=== PATIENT | female | born 2000 | race Caucasian/White ===

== ENCOUNTER 2023-03-12 16:30 | Emergency (ER) | payer OTHER, SELFPAY ==
--- NOTE | 2023-03-12 17:09 | ED_ITS ---
HPI - General Adult General Chief complaint: Vaginal Bleeding Stated complaint: vaginal bleeding Time Seen by Provider: 03/12/23 18:49 History of Present Illness HPI narrative: The patient is a 22-year-old female who has a history of hydrocephalus and has a PROCESS DEVELOPMENT ENGINEER shunt. She is on control pills. She has had very little sexual experience. She has had 2 previous attempts at intercourse both of which were uncomfortable some bleeding. Her last attempt was about 6 or 7 months ago. She and her boyfriend have use condoms on each of these attempts as well. This morning at around 09:30 she and her boyfriend were attempting intercourse again. During the intercourse which the patient found uncomfortable there was significant bleeding that interrupted the intercourse. They stopped having intercourse. Despite this the patient continued to have significant vaginal bleeding and passed large clots and ultimately her mother brought her to the hospital. Related Data Allergies Allergy/AdvReac Type Severity Reaction Status Date / Time doxycycline Allergy Rash Verified 03/12/23 17:09 latex Allergy Unknown Verified 03/12/23 17:09 Review of Systems 2 Review of Systems: Yes all other systems are reviewed and are negative [facility] Social History Social History Advance Directives: No Advance Directives Information Provided: No Physical Exam ED Vital Signs: Vital Signs - 24 hr 03/12/23 17:10 03/12/23 19:12 Temperature 96.8 F 97.6 F Pulse Rate 88 87 Respiratory Rate 18 19 Blood Pressure 156/95 H 108/63 Pulse Oximetry 99 100 Oxygen Delivery Method Room Air Room Air BMI result Body Mass Index 37.8 Const Other: The patient is awake and alert. She looks pale. HENMT Other: Face is symmetrical. Mucous membranes moist. Eyes Other: Pupils are round equal, conjunctivae are clear, extraocular movements intact Resp Effort & Inspection: normal respiratory effort Auscultation: clear to auscultation bilaterally Cardio Rate: regular rate Rhythm: regular rhythm Heart sounds: S1 normal heart sound present and S2 normal heart sound present GI Other: Soft and nontender Other: Speculum exam revealed small amount of blood in the vaginal vault but no ongoing bleeding. No blood emerging from the cervix. No lesions or signs of injury. Bimanual exam was unremarkable. Skin Other: Skin was pale and dry Neuro Other: The patient is awake and alert pleasant and cooperative. Mental status is normal. Grossly neurologically intact. Extrem Other: No peripheral edema. Course Course Course Narrative: RME:?22 yo female here w/ vaginal bleeding after having sexual intercourse this morning. +blood clots size of tennis ball. has gone through 7 pads since this morning. bleeding onto her pants and has had to change her pants 4 times. +low abdominal cramping, light headed. Just recently became sexually active. reports three episodes of sexual intercourse with vaginal bleeding each time. this has been the heaviest. LMP 03/01/23. typically has heavy bleeding during her menses. has never seen a lawyer real estate. on OCP. plan UA, u preg, basic labs Full HPI, ROS and PE to be performed by the primary ED provider. Medications Administered Discontinued Medications Generic Name Dose Route Start Last Admin Trade Name Deep PRN Reason Stop Dose Admin Tranexamic Acid 1,000 mg/ 260 mls @ 32.5 mls/hr 03/12/23 19:01 03/12/23 19:28 Sodium Chloride IV 03/13/23 03:00 32.5 mls/hr .Q8H ONE Administration Ketorolac Tromethamine 15 mg 03/12/23 19:01 03/12/23 19:26 Ketorolac Tromethamine 15 Mg/Ml Vial IVPUSH 03/12/23 19:02 15 mg ONCE ONE Administration Medical Decision Making Medical Decision Making [facility] Narrative: The patient is a 22-year-old with minimal previous sexual experience. She describes having only to previous episodes of attempting sexual intercourse both of which were associated with bleeding and discomfort. Asked attempted sexual intercourse was 6 or 7 months ago. Today the patient developed significant bleeding while having intercourse so that the intercourse was stopped because of the bleeding. She then continued to have bleeding and passage of large clots and was brought to the hospital by her mother. The patient was given a dose of ketorolac and tranexamic acid IV. The patient was observed for a couple of hours after ketorolac prior to the pelvic exam. Her pain was better. At the time that I performed the pelvic exam there was no evidence of significant ongoing bleeding and I thought she was safe for discharge. She should follow up with Gynecology. Lab Data 03/12/23 18:18 03/12/23 18:18 Labs: Lab Results 03/12/23 03/12/23 Range/Units 18:18 18:55 WBC 14.5 H (4.8-10.8) X10*3/uL RBC 4.45 (4.20-5.50) X10*6/uL Hgb 13.6 (12.0-16.0) g/dl Hct 38.4 (37.0-47.0) % MCV 86.3 (80.0-98.0) fL MCH 30.6 (27.0-33.0) pg MCHC 35.4 H (31.0-35.0) g/dl RDW 11.4 (11.0-16.0) % Plt Count 315 (160-400) X10*3/uL MPV 8.6 L (9.4-12.3) fL Immature Gran % (Auto) 0.3 (0.0-0.4) % Neut % (Auto) 64.5 (45-73) % Lymph % (Auto) 27.0 (20-40) % [place] % (Auto) 6.1 (2-11) % Eos % (Auto) 1.6 (0-4) % Baso % (Auto) 0.5 (0-2) % Lymph # (Auto) 3.9 (1.2-4.9) X10*3/uL [place] # (Auto) 0.9 (0.1-1.2) X10*3/uL Eos # (Auto) 0.2 (0.0-0.4) X10*3/uL Baso # (Auto) 0.1 (0.0-0.2) X10*3/uL Abs Immat Gran (auto) 0.05 H (0.00-0.03) X10*3/uL Absolute Neuts (auto) 9.4 H (2.0-8.3) x10*3/uL Absolute Nucleated RBC 0.000 (0.0-0.012) X10*3/uL Nucleated RBC % (auto) 0.0 (0.0-0.2) /100WBC Sodium 142 (135-145) mmol/L Potassium 3.6 (3.3-5.1) mmol/L Chloride 107 (96-108) mmol/L Carbon Dioxide 25 (22-29) mmol/L Anion Gap 14 (12-20) BUN 11 (9-16) mg/dL Creatinine 0.69 (0.5-1.4) mg/dL Estim Creat Clear Calc 114.8 Estimated GFR > 60 Random Glucose 100 (60-115) mg/dL Calcium 9.3 (8.4-10.2) mg/dL Magnesium 1.9 (1.6-2.6) mg/dL Beta HCG, Quant < 2 mIU/mL Urine Color RED Urine Appearance Cloudy Urine pH 5.0 (5.0-9.0) Ur Specific [place] 1.010 (1.005-1.025) Urine Protein 100 (2+) H (Neg-Trace) mg/dL Urine Glucose (UA) Negative (Negative) mg/dL Urine Ketones Trace (Negative) mg/dL Urine Blood Large (3+) H (Negative) Urine Nitrite Positive H (Negative) Ur Leukocyte Esterase Trace H (Negative) Urine RBC >20 H (0-2) /HPF Urine WBC 21-50 H (0-5) /HPF Ur Squamous Epith Cells 0-2 (0-2) /HPF Urine Bacteria None Seen (None Seen) Hyaline Casts 0-2 (0-2) /LPF Discharge Plan Discharge Clinical Impression: Vaginal bleeding Patient Disposition: Home, Self-Care Additional Instructions: My hope at this point is that you will not have any significant ongoing bleeding. I would recommend that you see a lawyer real estate before resuming attempts at intercourse. I have given you the contact information for [facility] lawyer real estate, Dr. Melendez. You may of course follow-up with the [facility] gynecology group you are planning on seeing. Rest and take it easy tonight. Return to the emergency room if significantly worse. Referrals: Mandeep Don MD [Primary Care Provider] - (postcoital vaginal bleeding) Florin Melendez MD [Physician] - (postcoital vaginal bleeding)
[2023-03-12 17:10] VITALS: BP 156/95; PULSE 88; RESP 18; TEMP 36; O2SAT 99; BMI 37.8
[2023-03-12 18:25] LABS: MANUAL DIFF FLAG NO
[2023-03-12 18:26] LABS: Basophils Absolute Auto 0.1 X10*3/uL (0.0-0.2); Basophils Percent Auto 0.5 % (0-2); Eosinophils Absolute Auto 0.2 X10*3/uL (0.0-0.4); Eosinophils Percent Auto 1.6 % (0-4); Hematocrit 38.4 % (37.0-47.0); Hemoglobin 13.6 g/dl (12.0-16.0); Imm Gran Abs Auto 0.05 X10*3/uL (0.00-0.03); Imm Gran Pct Auto 0.3 % (0.0-0.4); Lymphocytes Absolute Auto 3.9 X10*3/uL (1.2-4.9); Mean Corpuscular HGB Conc 35.4 g/dl (31.0-35.0); Mean Corpuscular Hemoglobin 30.6 pg (27.0-33.0); Mean Corpuscular Volume 86.3 fL (80.0-98.0); Mean Platelet Volume 8.6 fL (9.4-12.3); Monocytes Absolute Auto 0.9 X10*3/uL (0.1-1.2); Monocytes Percent Auto 6.1 % (2-11); Neutrophils Absolute Auto 9.4 x10*3/uL (2.0-8.3); Neutrophils Percent Auto 64.5 % (45-73); Platelet Count 315 X10*3/uL (160-400); Red Blood Count 4.45 X10*6/uL (4.20-5.50); Red Cell Distribution Width 11.4 % (11.0-16.0); White Blood Count 14.5 X10*3/uL (4.8-10.8)
[2023-03-12 18:46] LABS: Anion Gap 14 (12-20); Blood Urea Nitrogen 11 mg/dL (9-16); Calcium 9.3 mg/dL (8.4-10.2); Carbon Dioxide 25 mmol/L (22-29); Chloride 107 mmol/L (96-108); Creatinine Clr Calc Pharmacy 114.8; Estimated Glomerular Filt Rate > 60; Glucose Random 100 mg/dL (60-115); Magnesium 1.9 mg/dL (1.6-2.6); Potassium 3.6 mmol/L (3.3-5.1); Sodium 142 mmol/L (135-145)
[2023-03-12 19:04] LABS: Appearance Urine Cloudy; Color Urine RED; Glucose Urine UA Negative (Negative); Leukocyte Esterase Urine Trace (Negative); Nitrite Urine Positive (Negative); UMIC TRIGGER UACC YES; Urine Blood Large (3+) (Negative); Urine Ketones Trace mg/dL (Negative); Urine Protein 100 (2+) mg/dL (Neg-Trace)
[2023-03-12 19:12] VITALS: BP 108/63; PULSE 87; RESP 19; TEMP 36.4; O2SAT 100
[2023-03-12 19:13] LABS: Bacteria Urine None Seen (None Seen); Hyaline Casts Urine 0-2 /LPF (0-2); RBC Urine >20 /HPF (0-2); Squamous Epithelial Cell Urine 0-2 /HPF (0-2); UACC Culture Trigger YES; WBC Urine 21-50 /HPF (0-5)
[2023-03-12 19:15] LABS: HCG Quantitative < 2 mIU/mL
[2023-03-12] MEDS: Ketorolac Tromethamine 15 MG/ML VIAL IVPUSH (19:26)
[2023-03-12] MEDS: Tranexamic Acid 1,000 MG in 0.9 % Sodium Chloride 250 ML 32.5 MG IV (19:28)
== END 2023-03-12 23:31 | disposition home or self-care (01) ==
PROVIDERS: Physician Assistant Medical; Emergency Provider Emergency Medicine; PCP Internal Medicine
DX: N93.9 Abnormal uterine and vaginal bleeding, unspecified (principal); R10.2 Pelvic and perineal pain; Z79.899 Other long term (current) drug therapy
CPT/HCPCS: 36415; 80048; 81001; 81003; 83735; 84702; 85025; 87086; 96374; 99284; J1885

== ENCOUNTER 2025-02-10 14:51 | Outpatient (AMB) | payer OTHER, SELFPAY ==
--- OUTSIDE RECORDS SUMMARY | 2023-08-13 05:15 | XMS_ITS ---
Author Organization [facility] Address [address] [place] [address] Care Team Providers Care Charge Poster Name Role Phone Florencia BRIONES, Mandeep Primary Care Provider UnavailJolie Connell [phone] Encounters Encounter Location Date Provider Diagnosis [facility] [address] [place] [address] 08/13/2023 Jolie Downing Plan Of Treatment No Information Progress Notes * Maged LALB:2000 (24 yo F)Acc No.[id number]:08/13/2023 PROGRESS NOTE Patient: Ayde MONTOYA Provider: Yanira Downing DPM :2000 A ge:23 Y S ex:Female Date:08/13/2023 Address:[address] [place] [address] [facility] Pcp:Mandeep Don MD Subjective: * Chief Complaints: [...] 08/13/2023 Generated for Printi ng/Faxing/eTransmitting on: 1 04/13/2024 07:10 PM EST
--- OUTSIDE RECORDS SUMMARY | 2023-08-20 05:45 | XMS_ITS ---
Author Organization [facility] Address [address] [place] [address] Care Team Providers Care Tab Machine Operator Name Role Phone Florencia BRIONES, Mandeep Primary Care Provider UnavailJolie Connell [phone] Encounters Encounter Location Date Provider Diagnosis [facility] [address] [place] [address] 08/20/2023 Jolie Downing Plan Of Treatment No Information Progress Notes * Maged LALB:2000 (24 yo F)Acc No.[id number]:08/20/2023 PROGRESS NOTES Patient: Ayde MONTOYA Provider: Yanira Downing DPM :2000 A ge:23 Y S ex:Female Date:08/20/2023 Address:[address] [place] [address] [facility] Pcp:Mandeep Don MD Subjective: * Chief Complaints: [...] 08/20/2023 Generated for Printi ng/Faxing/eTransmitting on: 1 04/13/2024 07:10 PM EST
--- OUTSIDE RECORDS SUMMARY | 2023-09-06 08:45 | XMS_ITS ---
Author Organization [facility] Address [address] [place] [address] Care Team Providers Care Nurse Practical Name Role Phone Florencia BRIONES, Mandeep Primary Care Provider UnavailJolie Connell [phone] Encounters Encounter Location Date Provider Diagnosis [facility] [address] [place] [address] 09/06/2023 Jolie Downing Plan Of Treatment No Information Progress Notes * Maged LALB:2000 (24 yo F)Acc No.[id number]:09/06/2023 PROGRESS NOTES Patient: Ayde MONTOYA Provider: Yanira Downing DPM :2000 A ge:23 Y S ex:Female Date:09/06/2023 Address:[address] [place] [address] ro[address] [id number] Pcp:Mandeep Don MD Subjective: * Chief Complaints: [...] 09/06/2023 Generated for Printi ng/Faxing/eTransmitting on: 1 04/13/2024 07:11 PM EST
--- OUTSIDE RECORDS SUMMARY | 2024-06-17 04:45 | XMS_ITS ---
Author Organization [facility] Address [address] [place] [address] Care Team Providers Care Transfer Specialist Name Role Phone Florencia BRIONES, Mandeep Primary Care Provider Unavailabl e Black, Jolie Unavailable [phone] Lily Keith Unavailable [phone] Encounters Encounter Location Date Provider Diagnosis [address] [address] 06/17/2024 Lily Keith Plan Of Treatment No Information Progress Notes * Sylvia LALAzamB:2000 (24 yo F)Acc No.[id number]:06/17/2024 Progress Notes Patient: Ayde MONTOYA Provider: Arielle Keith DPM :2000 A ge:23 Y S ex:Female Date:06/17/2024 Address:[address] [place], [place] [id number] Pcp:Mandeep Don MD Subjective: * Chief Complaints: [...] 0 06/17/2024 Generated for Anais thurston/Brandy/eTransmitting on: 04/13/2024 07:11 PM EST
--- OUTSIDE RECORDS SUMMARY | 2024-07-29 09:00 | XMS_ITS ---
Author Organization [facility] Address [address] [place] [address] Care Team Providers Care Veterinarian Epidemiologist Name Role Phone Florencia BRIONES, Mandeep Primary Care Provider Unavailabl e Black, Jolie Unavailable [phone] Lily Keith Unavailable [phone] Encounters Encounter Location Date Provider Diagnosis [address] [address] 07/29/2024 Lily Keith Plan Of Treatment No Information Progress Notes * Sylvia LALAzamB:2000 (24 yo F)Acc No.[id number]:07/29/2024 Progress Note Patient: Ayde MONTOYA Provider: Arielle Keith DPM :2000 A ge:24 Y S ex:Female Date:07/29/2024 Address:[address] [place], [place] [id number] Pcp:Mandeep Don MD Subjective: * Chief Complaints: [...] DPM Date: 0 07/29/2024 Generated for Anais thurston/Brandy/eTransmitting on: 04/13/2024 07:11 PM EST
[2025-02-10 15:16] VITALS: BP 118/72; PULSE 103; O2SAT 99; BMI 32.5
--- NOTE | 2025-02-10 15:16 | A.OFFVIS_ITS ---
Vital Signs 02/10/25 15:16 Height 4 ft 10 in Weight 155 lb 8 oz BMI 32.5 BP 118/72 Blood Pressure Location Rt brachial Position Sitting Pulse 103 H Pulse Source Pulse Oximeter Pulse Oximetry (%) 99 Oxygen Delivery Method Room Air Intake Visit Reasons: Asthma Allergies doxycycline Allergy (Verified 02/10/25 15:18) Rash latex Allergy (Verified 02/10/25 15:18) Unknown HPI Comments Details: Ayde is a pleasant 24 year old female presenting for a pulmonology consultation to discuss her asthma diagnosis and management. Today she is accompanied by her mother. She has an unclear history of asthma, having been told she had it as a child and used an albuterol pump, but felt she grew out of it. More recently, she was prescribed Breo after an episode of bronchitis. Since 2022, she has experienced chest tightness and a dry cough, which worsen in the spring, fall, and with exposure to cold air. She reports being asymptomatic during the summer, at which time she trialed stopping her medication. Her current medications include the highest dose of Breo daily, Airsupra used approximately 5 times over the last few months, and an albuterol pump which she avoids due to side effects of feeling jittery with a racing heart. A pulmonary function test from March 2023 revealed mild obstruction, consistent with asthma, but no significant response to albuterol. Her lung volumes and diffusion capacity were normal. A chest CT from 2022 was normal. The patient has a history of seasonal allergies and takes Xyzal daily. She had allergy testing as a child which was positive for ragweed pollen and has a known allergy to latex, which seems to be triggered by inhalation rather than skin contact. She is a never-smoker with no secondhand smoke exposure. Her sister also has asthma. Past medical history is significant for hydrocephalus s/p JACK SPINNER shunt, for which she follows with [facility] and is in the process of transitioning to an adult provider. First name: Ayde Pulmonology History - History of asthma as a child with recurrence of symptoms following an episode of bronchitis. - Symptoms include chest tightness and a dry cough since 2022, exacerbated by cold air and seasonal changes in spring and fall. - Pulmonary function test in March 2023 showed mild obstruction. - History of recurrent respiratory infections and bronchitis while growing up. - Current medications include Breo Ellipta, Airsupra, and an albuterol inhaler. [facility] Social History (Updated 02/10/25 @ 15:18 by Adriana Burton [facility]) Patient Tobacco Use Status: Never used Tobacco Review of Systems Narrative Const Denies chills, Denies excessive sweating, Denies fever(s), Denies headache(s) and Denies night sweats Eyes Denies dry eyes, Denies irritation and Denies itchy eyes ENT Reports Normal hearing present, Denies headache(s), Denies nasal congestion, Denies nasal discharge, Denies post nasal drip and Denies sore throat Card Denies chest pain, Denies chest pain at rest, Denies chest pain with activity, Denies claudication, Denies leg edema, Denies dyspnea, Denies dyspnea on exertion, Denies orthopnea and Denies paroxysmal nocturnal dyspnea Resp Denies chest congestion, Denies cough, Denies excessive phlegm production, Denies pain on inspiration, Denies pain with cough, Denies dyspnea, Denies dyspnea on exertion, Denies stridor and Denies wheezing Musc Denies myalgias Neuro Reports Normal hearing present and Denies headache(s) Endo Denies excessive sweating Aquiles/Lymph Denies lymphadenopathy Aller/Immun Denies itchy eyes, Denies seasonal rhinorrhea and Denies wheezing Physical Exam Exam Exam: Vital Signs: Last Vital Signs Pulse 103 H 02/10/25 15:16 BP 118/72 02/10/25 15:16 Pulse Ox 99 02/10/25 15:16 Oxygen Delivery Method Room Air 02/10/25 15:16 BMI result Body Mass Index 32.5 Const General: cooperative, healthy appearing, comfortable, no acute distress, well developed and alert Nutritional Appearance: obese Orientation/consciousness: patient oriented x3 Limitations: no limitations HEENT Head: Yes normal to inspection, Yes normocephalic and Yes atraumatic Ears: hearing grossly normal bilaterally and external ears normal Eyes General: appearance normal, both eyes and all related structures Eyelids: Yes eyelids normal Sclerae: sclerae normal EOM: EOMs intact bilaterally Neck Neck: Yes normal visual inspection and Yes no lymphadenopathy Lymphatic: no lymphadenopathy noted Chest Chest palpation & inspection: normal inspection of the chest Resp Effort & Inspection: normal respiratory effort, able to speak in complete sentences, no audible wheezes, no cough, no stridor, not tachypneic, no tripod positioning and no use of accessory muscles Auscultation: clear to auscultation bilaterally Cardio Jugular venous distension: no JVD Rate: regular rate Rhythm: regular rhythm Skin Other: warm, dry General skin exam: no rashes or lesions noted Neuro General: patient oriented x3 Cranial nerves: Yes Normal hearing present Cognition (Neuro): normal cognition Gait exam (Neuro): Normal gait present Extrem General: Yes normal to inspection, Yes capillary refill normal, Yes no clubbing, cyanosis or edema and Yes no pedal edema Psych Appearance: grossly normal and well kempt Speech and movement: Normal speech and movement present and Clear speech present Affect: normal affect Attitude: cooperative Thought process: Normal thought process present Thought content: Normal thought content present Insight: Good insight present (Psych) Judgement: Good judgement present (Psych) Assessment & Plan Assessment & Plan (1) Asthma: Code(s): J45.909 - Unspecified asthma, uncomplicated Category: Medical (2) Environmental allergies: Code(s): Z91.09 - Other allergy status, other than to drugs and biological substances Category: Medical Plan Reviewed the patient's March 2023 pulmonary function test with her, explaining that the finding of mild obstruction confirms the diagnosis of asthma. Educated her that asthma is an inflammatory condition and that being on a daily controller inhaler like Breo helps reduce this inflammation, thereby preventing infections and flare-ups. We discussed that her symptoms appear to be well-controlled on her current regimen, as evidenced by her not having bronchiti c symptoms since starting the medication. Recommended she continue the high-dose Breo, especially through the current cold season and upcoming spring allergy season, to maintain control. We discussed the possibility of decreasing the dose during the summer, when she is typically asymptomatic. Ordered a baseline allergy blood work panel to better identify her environmental triggers. The patient expressed understanding and was agreeable with this plan. We will follow up in 8-10 weeks to review blood work results and her clinical status. All questions were answered and patient is in agreement of plan. Patient Instructions - Continue taking your Breo inhaler every day. - We may consider reducing your Breo dose in the summertime when your symptoms typically improve. - Please go to a lab to have blood work done to test for allergies. The orders have been sent electronically, so you do not need to carry any paperwork. - Call our office if you experience a cough that will not go away, cough up yellow or green mucus, have wheezing that does not improve with your rescue inhaler, or experience persistent shortness of breath. - Schedule a follow-up appointment in about 8 to 10 weeks. Patient was informed and verbally consented to the use of an ambient scribe for clinic note documentation during this visit. Orders: Orders Immunoglobulin E Today Z91.09 - Other allergy status, other than to drugs and biological substances Resp Allergy Profile Region I Today Z91.09 - Other allergy status, other than to drugs and biological substances Complete Blood Count Auto Diff Today Z91.09 - Other allergy status, other than to drugs and biological substances Coding Level of Care Code New Pt Level 4 (09287) Diagnoses Asthma J45.909 Environmental allergies Z91.09
--- OUTSIDE RECORDS SUMMARY | 2025-02-10 19:10 | XMS_ITS | Patient Health Record ---
Author Organization [facility] Address [address] [place] [address] Care Team Providers Care Traffic Survey Technician Name Role Phone Mandeep Don MD Primary Care Provider Unavailabl e Black, Jolie Unavailable [phone] Lily Keith Unavailable [phone] Allergies Allergen (clinical drug ingredient) Drug/Non Drug Allergy documented on EMR Reaction Allergy Type Onset Date Status Latex Latex Unknown Allergy Active Reason For Referral No Information Medications Medication SIG (Take, Route, Frequency, Duration) Notes Start Date End Date Status Emgality 120 MG/ML as directed Subcutaneous Active tiZANidine HCl 4 MG as directed Orally PRN Active Nurtec 75 MG 1 tablet on the tongue and allow to dissolve Orally Active Sertraline HCl 150 MG 1 tablet Orally Once a day Not-Taking Airsupra Active Topiramate 25 MG as directed Orally 25 am 50 pm 2 tab a day Not-Taking Sertraline HCl 50 MG as directed Orally Once a day Not-Taking Zepbound 2.5 MG/0.5ML 0.5 mL Subcutaneous Active Sertraline HCl 175MG Not-T aking Naproxen 500 MG 1 tablet with food or milk as needed Orally every 12 hrs PRN Active Zofran 8 Mg Active traMADol HCl 50 MG (Schedule IV Drug) (Prior Auth#:[id number]) Oral; Duration: 7 PRN Active Breo Ellipta Active 03/17 Control Activ e Citalopram Hydrobromide 20 MG 1 tablet Orally Once a day Active Linzess Active Immunizations Vaccine Route Administration Date Status Comme nts COVID-19 Moderna Vaccine Unknown 01/24/2021 Administered First Dose: 06/21/2020 Second Dose: 07/19/20 Social History Tobacco Use: Social History Observation Description Date Details (start date - stop date) Never Smoker NA - NA Tobacco use other than smoking: Question Answer Notes Are you an other tobacco user? No Tobacco Control (Standard) Question Answer Notes Tobacco use: Nonsmoker Additional Findings: Tobacco non-user Current no nsmoker AUDIT-C (Standard) Question Answer Notes Did you have a drink contain ing alcohol in the past year? Yes How often did you have a dri nk containing alcohol in the past year? Monthly or less (1 point) How many drinks did you have on a typical day when you were drinking in the past year? 1 or 2 drinks (0 point) How often did you have six o r more drinks on one occasion in the past year? 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) Plantar fasciitis, bilateral (M72.2) Active confirmed Vital Signs Blood pressure diastolic 98 mm Hg 05/15/2024 Height 4ft 10in in 05/15/2024 Blood pressure systolic 136 mm Hg 05/15/2024 Weight 153 lbs 05/15/2024 BMI 31.97 kg/m2 05/15/2024 Encounters Encounter Location Date Provider Diagnosis [facility] [address] 05/15/2024 Lily Perica Pain in right foot M79.671 ; Plantar fasciitis, bilateral M72.2 ; Other myositis of right foot M60.871 ; Bursitis of right foot M77.51 ; Pain in left foot M79.672 ; Other myositis of left foot M60.872 and Bursitis of left foot M77.52 [facility] [address] [address] [place] [address] 05/12/2024 Jolie Downing Assessments Encounter Date Diagnosis (ICD Code) Assessment Notes Treatment Notes Treatment Clinical Notes Section Notes 05/15/2024 Pain in right foot (ICD-10 - M79.671) 05/15/2024 Other myositis of right foot (ICD-10 - M60.871) 05/15/2024 Plantar fasciitis, bilateral (ICD-10 - M72.2) Patient Educated with: HEEL CORD STRETCHES.pdf (HEEL CORD STRETCHES.pdf) Patient Educated with: RICE THERAPY.pdf (RICE THERAPY.pdf) 05/15/2024 Bursitis of right foot (ICD-10 - M77.51) 05/15/2024 Pain in left foot (ICD-10 - M79.672) 05/15/2024 Other myositis of left foot (ICD-10 - M60.872) 05/15/2024 Bursitis of left foot (ICD-10 - M77.52) 05/15/2024 Other Patient Educated with: RICE THERAPY.pdf (RICE THERAPY.pdf) Patient Educated with: INJECTIONTHERA PY.pdf (INJECTIONTHER APY.pdf) Plan Of Treatment Pending Test Test Name Order Date X ray : Foot, left 3V 05/15/2024 X ray : Foot, right 3V 05/15/2024 26591-Jqos Destruction, 1-14 11/07/2021 26789-Emwl Destruction, -14 01/23/2022 13161-Wmuc Destruction, -14 04/01/2020 09024-Qrew Destruction, -04/22/2020 95065-Cqqd Destruction, -14 05/27/2020 17402-Pisn Destruction, -14 06/21/2020 84610-Pyrw Destruction, -03/21/2021 18728-Sohv Destruction, -04/28/2021 86072-Bhmu Destruction, -05/30/2021 08720-Gzpr Destruction, -10/10/2021 21129,S0864-QSZ TENDON SHEATH/LIGAMENT 0 10/25/202183042,W8149-RPF TENDON SHEATH/LIGAMENT 0 11/07/202102415,C3827-XLX TENDON SHEATH/LIGAMENT 0 04/10/202261800,Z2468-TQO TENDON SHEATH/LIGAMENT 0 04/18/2022 Insurance Providers Payer Name Payer Address Payer Phone Subscriber Number Group Number Insured Name Patient Relationship to Insured Coverage Start Date Coverage End Date [address] [facility] [place], [place] [id number] Ayde Broussard Self - patient is the insured Medical (General) History Medical History History ICD Code Anxiety asthma Depression Epilepsy Headaches Warts Chicken pox Joint implants/screws hydrocephalus Surgical History Surgery Date(Month/Year) shunt revision tubes hernia tonsillectomy adnoidectomy subdural 3rd ventriculostomy Hospitalization History Reason Date(Month/Year) Pain Management- PRN 2022
--- OUTSIDE RECORDS SUMMARY | 2025-02-10 19:10 | XMS_ITS | Data Portability ---
Author Organization [facility], [address] Address [address] [place] [address] Care Team Providers Care Mammal Control Agent Name Role Phone ROSALVA DE OLIVEIRA Primary Care Provider Assessment No assessment recorded. Plan of Treatment Reminders Order Date Submit Date Provider Last Modified By Organization Details Last Modified Time Details Appointments None recorded. Lab rapid flu (A+B) 2022 023 [email or web address] _[facility], [address] [facility] [address], [place], [address], 17:48:59 Referral None recorded. Procedures None recorded. Surgeries None recorded. Imaging XR, chest, 2 view 2022 023 [facility], [address] [place] [address], [address], 19:12:14 Medication Orders albuterol sulfate 2.5 mg/3 mL (0.083 %) solution for nebulizatio n 2022 023 nruszala Not available 17:51:26 ipratropium bromide 0.02 % solution for inhalation 2022 023 nruszala Not available 17:52:13 azithromyci n 250 mg tablet 2022 023 [facility]armacy #[id number], [address] [facility] [place], [address], 3 19:00:28 prednisone 20 mg tablet 2022 023 [facility]acy #[id number], [address] [facility] [place], [address], 19:00:28 Patient TargetsNo targets recorded. Patient Instructions Encounter Date Encounter Id Patient Instructions Last Modified By Organization Details Last Modified Time 09/20/2022 [id number] walking pneumonia: care instructions [email or web address] Not available 09/20/2022 19:00:36 Reason for Referral None Reported. Results Created Date Observation Date Name Description Value Unit Range Abnormal Flag Note LastModifiedBy Organization Detail LastModifiedTime 09/21/1909/20/2022 rapid flu (A+B) Unknown Analyte negati ve Not Available [address] [place] [address] [place], [address], 09/20/2022 17:20:28 09/21/19 23 09/20/2022 rapid flu (A+B) Unknown Analyte negati ve Not Available [address] [address] [facility] [place], [address], 09/20/2022 17:20:28 09/21/19 23 09/20/2022 XR, chest , 2 view No observ ation record ed. [email or web address] [facility] [address] [place], [address], 09/20/2022 19:43:05 09/22/19 XR, chest , 2 view No observ ation record ed. [email or web address] [facility] [address] [place], [address], 09/21/2022 09:43:40 Result Notes None recorded. Problems Name Problem SNOMED Code Status Onset Date Resolution Date Notes Provider Name and Address Organization Details Recorded Time Asthma 079691539 Completed 09/20/2022 Rose mar PA - [facility] 17:18:01 Hydrocephal 133488722 Active Rose mar PA - [facility] 17:18:12 Problem Notes None recorded. Procedures Surgical History Date Name Laterality Status Provider Name and Address Organization Details Recorded Time 09/21/19 Nebulizer Treatment completed Chai Blackmon MD [facility] [place], [address], [place] - [facility] 09/25/2022 08:35:58 surgical repair and revision of shunt completed Rosecarolyn Sumner PA - [facility] 09/20/2022 17:19:10 attention to middle ear ventilation tube completed Rosecarolyn Sumner PA - [facility] 09/20/2022 17:19:24 tonsillectomy and adenoidectomy completed Rose Ruszala PA - [facility] 09/20/2022 17:19:42 extraction of wisdom tooth completed Rosecarolyn Sumner PA - [facility] 09/20/2022 17:19:50 Imaging Results None recorded. Procedure Notes None recorded. Medical Equipment None Reported. Allergies Allergen ID Allergen Name Allergen Category Reaction Reaction Severity Criticality Documentation Date Start Date Code Code System Note Provider Name and Address Organization Details Recorded Time 824596 latex environme nt,medica tion Not available Not available Not available 09/20/2022 52448 91 RxNorm Rosecarolyn mar PA - [facility] 17:17:11 Medications Name Sig Start Date Stop Date Status Note LastModified by Organization Details LastModified Time albuterol sulfate 2.5 mg/3 mL (0.083 %) solution for nebulization Inhale 3 mL by nebulizatio n route. 2022 active Not Available Not Available Not Avai lable azithromycin 250 mg tablet TAKE 2 TABLETS (500 MG) BY ORAL ROUTE ONCE DAILY FOR 1 DAY THEN 1 TABLET (250 MG) BY ORAL ROUTE ONCE DAILY FOR 4 DAYS 2022 active Not Available Not Available Not Avai lable prednisone 20 mg tablet Take 2 tablets every day by oral route for 5 days. 2022 active Not Available Not Available Not Avai lable ipratropium bromide 0.02 % solution for inhalation Inhale 2.5 mL every 6 hours by inhalation route. 2022 active Not Available Not Available Not Avai lable amoxicillin active Not Available Not A vailable Not Available prednisone active Not Available Not Av ailable Not Available albuterol 90 mcg-budesoni de 80 mcg/actuatio n HFA aerosol inhaler Inhale by inhalation route. active Not Available Not Available No t Available Vitals Date Recorded Body height Body mass index (BMI) Body weight Respiratory rate Oxygen saturation Heart rate Body temperature Systolic And Diastolic Provider Name and Address Organization Details Last Updated DateTime 3 149.86 cm 37.6 kg/m2 31196.1 8 g 22 /min 96 % 98 /min 98 [degF] 137/86 mm[Hg] Rose Paez [facility] 3 17:22:37 Social History Question Answer Notes LastModified by Organizat ion Details LastModified Time Tobacco Smoking Status Never Smoker [facility] 09/20/2022 17:18:44 Have You Had Direct Contact, Or Contact During Intimacy, With Monkeypox Rash, Scabs, Or Body Fluids From A Person With Monkeypox? No Information not available 09/20/2022 Have You Recently Traveled Abroad? No Information not available 09/20/2022 Sex: Unknown Functional Status Question Answer Note LastModified by Organizat ion Details LastModified Time Do you use any illicit or recreational drugs? No Information not available 09/20/2022 What is your level of alcohol consumption? None Information not available 09/20/2022 Mental Status None recorded. Family History Relationship Description Onset Age of this Age Resolved Age Notes LastModified by Organization Details LastModified Time Father Heart disease nruszala Not available 2022 17:18:38 Mother Heart disease nruszala Not available 2022 17:18:38 Medical History No medical history recorded. Gynecological History Statement/Question Response Date of LMP 08/20/2022 Is there any chance of ? No LMP Approximate Obstetrics History GPAL:G 0 P 0 0 0 0 Immunizations Vaccine Type Date Status Note Provider Nam e and Address Organization Details Recorded Time COVID-19, mRNA, LNP-S, PF, 100 mcg/0.5mL dose or 50 mcg/0.25mL dose 1 completed Rose Ruszala null, PA - [facility] 09/20/2022 17:16:48 COVID-19, mRNA, LNP-S, PF, 100 mcg/0.5mL dose or 50 mcg/0.25mL dose 1 completed Rose Ruszala null, PA - [facility] 09/20/2022 17:16:48 COVID-19, mRNA, LNP-S, PF, 100 mcg/0.5mL dose or 50 mcg/0.25mL dose 2 completed Rose Ruszala null, PA - [facility] 09/20/2022 17:16:48 COVID-19, mRNA, LNP-S, PF, 100 mcg/0.5mL dose or 50 mcg/0.25mL dose 1 completed Rose Ruszala null, PA - [facility] 09/20/2022 17:16:48 Tdap 1 completed Rose Ruszala null, PA - [facility] 09/20/2022 17:16:48 Influenza, split virus, trivalent, preservative 1 completed Rose Ruszala null, PA - [facility] 09/20/2022 17:16:48 meningococcal MCV4P 6 completed Rose Ruszala null, PA - [facility] 09/20/2022 17:16:48 Influenza, split virus, quadrivalent, PF 9 completed Rose Ruszala null, PA - [facility] 09/20/2022 17:16:48 Influenza, split virus, quadrivalent, PF 0 completed Rose Ruszala null, PA - [facility] 09/20/2022 17:16:48 Influenza, split virus, quadrivalent, PF 2 completed Rose Ruszala null, PA - [facility] 09/20/2022 17:16:48 Influenza, split virus, quadrivalent, PF 7 completed Rose Ruszala null, PA - [facility] 09/20/2022 17:16:48 Past Encounters Encounter ID Performer Location Encounter Start Date Encounter Closed Date Diagnosis/Indication Diagnosis SNOMED-CT Code Diagnosis ICD10 Code Diagnosis IMO Codes Diagnosis Note [id number] [address] [facility] [address] [place] [address] 11/01/2014 16:56:52 11/01/2014 18:06:16 [id number] [address] [place] [address] 04/18/2015 08:34:10 04/18/2015 09:13:20 [id number] [address] [facility] [address] [place] [address] 03/18/2017 08:10:13 03/18/2017 08:42:38 [id number] Chai Blackmon MD [address] [place] [address] 09/20/2022 17:01:13 09/20/2022 19:08:41 Wheezing 37949561 R06.2 Cough 20734846 R05.9 Community acquired pneumonia 997674400 J18.9 XRay with concern for infiltrate . Poor chest expansion due to symptomsPl ease follow up with PCP or Urgent Care in 3-5 days if no improvemen t or if any new symptoms occur that are concerning .Call 911 or go to nearest ER if you develop any shortness of breath, chest pain, severe headache, dizziness, or other concerning symptoms Health Concerns Section Related Observation LastModified by Organization Detai ls LastModified Time None Recorded Concern Status LastModified by Organization Details LastModified Time None Recorded Advance Directives Directive None Recorded Payers Insurance Date Sequence Insurance Name Policy Number Policy Emery Covered Member ID Emery Member ID Guarantor Name 09/27/2022 1 [facility] [id number] 1 Dayday Pérez [id number] Ayde Pérez Notes Date Note Type Note Provider Name and Address Organization Details Recorded Time 3 text/html CoughReported by PatientHPIFor quality, patient reportsdrybut reportssymptoms worse with lying down. For severity, patient reportsworsening. For associated symptoms, patient reportswheezing,can't get a deep breath, andhurts to breathbut reportsno fever,no chills,no chest pain,no heartburn,no nausea,no vomiting,no edema,no agitation, andno post nasal drip. For source of patient information, patient reportsinformation obtained from patientandpatient arrived at urgent care ambulatory. For duration, patient reportschronic. For timing, patient reportsconstant. For context, patient reportspatient denies vapingandnon-smoker. Chai Blackmon MD [address] [facility] [place], [address], [place] - [facility] 09/25/2022 08:36:58 OBGyn Episode No OBEpisode recorded.
--- OUTSIDE RECORDS SUMMARY | 2025-02-10 19:11 | XMS_ITS | Patient Health Record ---
Author Organization [facility] [address] Address [address] [place] [address] Care Team Providers Care Dance Master Name Role Phone ERICK MOONEY Unavailable [phone] CHANCE FRENCH Unavailable [phone] ZEB PUENTE Unavailable [phone] Allergies Allergen (clinical drug ingredient) Drug/Non Drug Allergy documented on EMR Reaction Allergy Type Onset Date Status Latex Latex Unknown Allergy Active Pollen Pollen Unknown Allergy Active Reason For Referral No Information Medications Medication SIG (Take, Route, Frequency, Duration) Notes Start Date End Date Status Citalopram Hydrobromide 20 MG Tablet 1 tablet Orally Once a day 25mg A ctive tiZANidine HCl 4 MG Capsule 1 capsule as needed Orally Once a day Active traMADol HCl 50 MG Tablet 1 tablet as ne eded Orally Once a day Active Ondansetron HCl 8 MG Tablet 1 tablet as needed Orally Once a day Active Omeprazole 40 MG Capsule Delayed Release 1 capsule 30 minutes before morning meal Orally Once a day; Duration: 30 days 10/09/2023 Active amLODIPine Besylate 5 MG Tablet 1 tablet Orally Once a day A ctive Emgality (300 MG Dose) 100 MG/ML Solution Prefilled Syringe 3 mL Subcutaneous Active Mounjaro 7.5 MG/0.5ML Solution Auto-injector 7.5 mg Subcutaneous weekly; Duration: 28 days Active Wegovy 2.4 MG/0.75ML Solution Auto-injector ADMINISTER 2.4 MG UNDER THE SKIN WEEKLY; Duration: 01/06/2025 Active Junel 03/17 1-20 MG-MCG Tablet TAKE 1 TABLET BY MOUTH EVERY DAY CONTINUOUSLY Oral; Duration: 15 Days Active Breo Ellipta 200-25 MCG/ACT Aerosol Powder Breath Activated INHALE 1 PUFF BY MOUTH DAILY Inhalation; Duration: 30 Days Active Linzess 145 MCG Capsule Oral; Duration: 30 Days Active Social History Tobacco Use: Social History Observation Description Date Details (start date - stop date) Never Smoker NA - NA Social History Tobacco Use: Social Info Question Answer Notes Tobacco Use/Smoking Are you a nonsmoker Section Notes: Tob: none ETOH: None Drug use: None 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 ETOH: None Drug use: None 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 ETOH: None Drug use: None 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 ETOH: None Drug use: None 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 ETOH: None Drug use: None 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 ETOH: None Drug use: None 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 ETOH: None Drug use: None 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 ETOH: None Drug use: None 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 ETOH: None Drug use: None 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 ETOH: None Drug use: None 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 ETOH: None Drug use: None 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 ETOH: None Drug use: None 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 Problems Problem Type SNOMED Code ICD Code Onset Dates Problem Status W/U Status Risk Notes Problem Obesity (942160378) Other obesity (E66.8) Active confirmed Problem Abnormal blood pressure (99888584) Encounter for examination of blood pressure with abnormal findings (Z01.31) Active confirmed Problem Morbid obesity (960817914) Morbid obesity (E66.01) Active confirmed Problem Refractory migraine (425969177) Intractable migraine without status migrainosus, unspecified migraine type (G43.919) Active confirmed Problem Body mass index 40+ - morbidly obese (159582341) BMI 40.0-44.9, adult (Z68.41) Active confirmed Problem Obese class II (620100188068432) BMI 37.0-37.9, adult (Z68.37) Active confirmed Problem Obese class II (412871256799309) BMI 35.0-35.9,adult (Z68.35) Active confirmed Problem Obese class I (620506885287114) BMI 33.0-33.9,adult (Z68.33) Active confirmed Problem BMI 30+ - obesity (628373282) BMI 32.0-32.9,adult (Z68.32) Active confirmed Problem Obese class II (482990718403278) BMI 38.0-38.9,adult (Z68.38) Active confirmed Problem Body mass index 30.00 to 34.99 (396446501350025) BMI 31.0-31.9,adult (Z68.31) Active confirmed Problem Body mass index 30+ - obesity (484699327) BMI 30.0-30.9,adult (Z68.30) Active confirmed Problem Body mass index 30.00 to 34.99 (353484183327615) BMI 34.0-34.9,adult (Z68.34) Active confirmed Problem Obstructive hydrocephalus (966575953) Hydrocephalus, unspecified type (G91.9) Active confirmed Problem Obesity (535135143) Obesity (E66.9) Active confirmed Vital Signs Heart Rate 92 /min 01/06/2025 Oximetry 98 % 01/06/2025 Blood pressure diastolic 80 mm Hg 01/06/2025 Height 59 in 01/06/2025 Blood pressure systolic 116 mm Hg 01/06/2025 Weight 149.8 lbs 01/06/2025 BMI 30.25 kg/m2 01/06/2025 Encounters Encounter Location Date Provider Diagnosis [facility] [address] [place] [address] 03/20/2024 CHANCE MARSHA BMI 31.0-31.9,adult Z68.31 ; Obesity E66.9 ; Hydrocephalus, unspecified type G91.9 and Depression, unspecified F32.A [facility] [address] [place] [address] 05/05/2024 CHANCE FRENCH Obesity E66.9 ; BMI 31.0-31.9,adult Z68.31 ; Hydrocephalus, unspecified type G91.9 and Depression, unspecified F32.A [facility] [address] [place] [address] 06/24/2024 CHANCE FRENCH Obesity E66.9 ; BMI 31.0-31.9,adult Z68.31 ; Hydrocephalus, unspecified type G91.9 and Depression, unspecified F32.A [facility] [address] [place], [place] 08/05/2024 CHANCE MANOLO BMI 31.0-31.9,adult Z68.31 ; Obesity E66.9 ; Hydrocephalus, unspecified type G91.9 ; Depression, unspecified F32.A and Encounter for examination of blood pressure without abnormal findings Z01.[address] [facility] [address] [place], [place] 09/23/2024 CHANCE MANOLO Obesity E66.9 ; BMI 30.0-30.9,adult Z68.30 ; Hydrocephalus, unspecified type G91.9 ; Depression, unspecified F32.A and Encounter for examination of blood pressure with abnormal findings Z01.[address] [facility] [address] [place], [place] 11/25/2024 ZEB PUENTE BMI 30.0-30.9,adult Z68.30 ; Obesity E66.9 ; Hydrocephalus, unspecified type G91.9 ; Depression, unspecified F32.A and Encounter for examination of blood pressure with abnormal findings Z01.[address] [address] [place], [place] 01/06/2025 CHANCE MANOLO BMI 30.0-30.9,adult Z68.30 ; Obesity E66.9 ; Hydrocephalus, unspecified type G91.9 ; Depression, unspecified F32.A and Encounter for examination of blood pressure with abnormal findings Z01.31 [facility] [address] [place] [address] 02/21/2024 CHANCE MANOLO [facility] [address] [place] [place] [address] 02/25/2024 CHANCE MANOLO [facility] [address] [place] [place] [address] 04/22/2024 CHANCE MANOLO [facility] [address] [place] [address] 05/05/2024 CHANCE MANOLO [facility] [address] [place] [address] 06/30/2024 CHANCE MANOLO [facility] [address] [place] [address] 08/25/2024 CHANCE FRENCH [facility] [address] [facility] [address] [place] [address] 11/25/2024 CHANCE FRENCH Morbid obesity E66.0 [address] [facility] [address] [facility] [address] [place] [address] 11/27/2024 ZEB KWAME Assessments Encounter Date Diagnosis (ICD Code) Assessment Notes Treatment Notes Treatment Clinical Notes Section Notes 03/20/2024 BMI 31.0-31.9,dania lt (ICD-10 - Z68.31) Ayde Is a 22-year-old female who presents the office for a weight management follow-up. 12/28 weight 199.2, BMI of 40.23. 01/13 weight 191.3, BMI of 38.63. 02/14 Weight 190.3, BMI 38.43 03/27/2022: weight 187, BMI 37.77 - Topamax increase by a neurologist. Patient joined [employer]. Will continue with lifestyle modifications. 04/24/22: weight 184.7, BMI 37.3- Continues to be pleased with her weight loss with lifestyle modifications. Sertraline just increased by PCP. Topamax increased by neurologist. Patient is doing well, no concerns. Great support from her grandmother. Encouraged to continue lifestyle modificationsWorking on consistency. 06/19/22: weight 186.9, BMI 37.75. The patient is struggling with lifestyle modifications. States that her school has been causing her much stress that she has not been able to focus on diet/exercise. Received [facility] today. Will focus on planning her foods for the next four weeks, and consider weight loss medications in the future. Patient educated with history of hydrocephalus, that she will not qualify for phentermine due to cardiac risk factor/ /elevation in blood pressure. She's in the process of talking to neurology about potentially increasing Topamax. Following with therapy regularly. 07/17/22 Weight 184.5 BMI 37.26 Patient lost 2lbs with lifestyle changes will submit patient for Wegovy 0.25mg subq weekly 09/05/22: BMI 37 Weight 184. Awaiting Saxenda. 11/28/22: BMI 38 Weight 191. Discussed importance of taking care of whole self. Recommended looking for a therapist on [facility]. Discused talking to PCP about changing or adding on Rexulti or Vrylar. Discussed compounded semaglutide cost, side effects. Agreeable to in office semaglutide. Sema 0.25 mg subcu administered. Pt warned of s/e, as well as importnace of adequate water/protein intake. 01/09/23: BMI 38 weight 189. Increase to Semaglutide 0.5 compounded. Increase water intake, daily Miralax. Consider Zepbound when available for affordability. 03/19/23: BMI 37, Weght 183. 6lb down, will send for Wegovy 1.7 mg subcu weekly. Discussed admisnistartion/storag e 07/12/23: BMI 35, Weight 172. Continue Wegovy 1.7 mg subcu weekly. 08/27/23: BMI 34, Weight 170. Patient reports that she has had increased fast food intake, and has limited exercise. She also had COVID 1 week ago. She denies any nausea or vomiting. She does report some heartburn with eating spicy or greasy foods. She also endorses mild diarrhea with fast food. Patient was encouraged to increase her resistance training and exercise. Patient's water is about 64 ounces, slightly more would be improved. Will increase dose of Wegovy from 1.7 to 2.4 mg. 10/09/23: BMI 33, Weight 165. Body composition scale shows muscle loss. Discussed importance of eating smaller meals, slowing down how quickly she is eating and exercising. 12/24/23: BMI 32, Weight 160 lb. Decrease to Wegovy 1.7 mg subcu weekly. Change to lansoprazole 30 mg po daily. 03/20/24: BMI 31, Weight 156, continue the Wegovy 1.7 mg subcu weekly. Continue exercise. Congratulted on efforts. Lansopraozole working. #Patient has a history of hydrocephalus, she should continue following with neurology. She is on Topamax which will help with weight loss.Occipital nerve treatment through paid management on February 22. Topamax increase by neurologist, Patient tolerating well. #Depression: patient should continue sertraline. Dose just increased, And patient is feeling better. Control at this time. Patient falls with therapy once a week, next appointment is tomorrow. She does have support with her grandmother, but does not have support at home with her mother/sister. Patient does have a history of self-harm rubbing her thumb against a tape dispenser. She declines any suicidal ideations now. She does have the crisis hotline. Has never been hospitalized. Patient provided with walk-in clinic for psychiatric needs in [place] to use as needed. She should call the office with any questions or concerns. Patient is understanding it is feeling motivated at this time.This conversation was had with patients grandmother in the room as well who is understanding. 01/31/2024: BMI 31.83, weight 157.63. Continue Wegovy 1.7 mg, patient states that she is intermittently constipated has a bowel movement every 2 days. She is continuing with MiraLAX and Colace at this time, states that her PCP and neurologist are aware that she is on Wegovy 1.7 and is intermittently constipated. Patient encouraged to drink more water as this may help with constipation, she is dehydrated upon SECA scale today. Patient did bring with her a bag of her disposable pen needles from [employer] to dispose in office today. #Hydrocephalus: Patient does follow with neurology, she is doing well on Emgality, states that she recently had her shunt examined and all is well. Time spent 30 minutes with greater than 50% on care coordination and patient education. Patient will follow-up in one month for weight management. All patient questions answered in office today. Patient should call the office in the meantime with any questions or concerns. Total time spent wiht patient is 30 minutes , over hald being face to face time. Case discussed with collaborating physician Althea Mooney who reviewed the assessment and plan. Chart, medications, labs, vital signs reviewed. Dictation was accomplished with the use of [employer] voice recognition software, prone to medical misidentifications and grammatical errors. This is unintentional and the practitioner does try to identify and correct these, but some could still be present. Please do not hesitate to contact practitioner for clarification. 05/05/2024 BMI 31.0-31.9,dania lt (ICD-10 - Z68.31) Ayde Is a 22-year-old female who presents the office for a weight management follow-up. 11/2 weight 199.2, BMI of 40.23. 01/13 weight 191.3, BMI of 38.63. 02/14 Weight 190.3, BMI 38.43 03/27/2022: weight 187, BMI 37.77 - Topamax increase by a neurologist. Patient joined [employer]. Will continue with lifestyle modifications. 04/24/22: weight 184.7, BMI 37.3- Continues to be pleased with her weight loss with lifestyle modifications. Sertraline just increased by PCP. Topamax increased by neurologist. Patient is doing well, no concerns. Great support from her grandmother. Encouraged to continue lifestyle modificationsWorking on consistency. 06/19/22: weight 186.9, BMI 37.75. The patient is struggling with lifestyle modifications. States that her school has been causing her much stress that she has not been able to focus on diet/exercise. Received [facility] today. Will focus on planning her foods for the next four weeks, and consider weight loss medications in the future. Patient educated with history of hydrocephalus, that she will not qualify for phentermine due to cardiac risk factor/ /elevation in blood pressure. She's in the process of talking to neurology about potentially increasing Topamax. Following with therapy regularly. 07/17/22 Weight 184.5 BMI 37.26 Patient lost 2lbs with lifestyle changes will submit patient for Wegovy 0.25mg subq weekly 09/05/22: BMI 37 Weight 184. Awaiting Saxenda. 11/28/22: BMI 38 Weight 191. Discussed importance of taking care of whole self. Recommended looking for a therapist on [facility]. Discused talking to PCP about changing or adding on Rexulti or Vrylar. Discussed compounded semaglutide cost, side effects. Agreeable to in office semaglutide. Sema 0.25 mg subcu administered. Pt warned of s/e, as well as importnace of adequate water/protein intake. 01/09/23: BMI 38 weight 189. Increase to Semaglutide 0.5 compounded. Increase water intake, daily Miralax. Consider Zepbound when available for affordability. 03/19/23: BMI 37, Weght 183. 6lb down, will send for Wegovy 1.7 mg subcu weekly. Discussed admisnistartion/storag e 07/12/23: BMI 35, Weight 172. Continue Wegovy 1.7 mg subcu weekly. 08/27/23: BMI 34, Weight 170. Patient reports that she has had increased fast food intake, and has limited exercise. She also had COVID 1 week ago. She denies any nausea or vomiting. She does report some heartburn with eating spicy or greasy foods. She also endorses mild diarrhea with fast food. Patient was encouraged to increase her resistance training and exercise. Patient's water is about 64 ounces, slightly more would be improved. Will increase dose of Wegovy from 1.7 to 2.4 mg. 10/09/23: BMI 33, Weight 165. Body composition scale shows muscle loss. Discussed importance of eating smaller meals, slowing down how quickly she is eating and exercising. 12/24/23: BMI 32, Weight 160 lb. Decrease to Wegovy 1.7 mg subcu weekly. Change to lansoprazole 30 mg po daily. 03/20/24: BMI 31, Weight 156, continue the Wegovy 1.7 mg subcu weekly. Continue exercise. Congratulted on efforts. Lansopraozole working. 05/05/24: BMI 31, Weight 157. Currently plateau'd. Cannot go up to Wegovy 2.4 mg subcu weekly due to GI s/e. Will attempt change to Zepbound 5 mg subcu weekly. Needs to eat smaller meals and increase protein intake. Patient is only doing limited exercise. Discussed need for resistance training with light weights to start at least 2-3 days a week. #Patient has a history of hydrocephalus, she should continue following with neurology. She is on Topamax which will help with weight loss.Occipital nerve treatment through paid management on February 22. Topamax increase by neurologist, Patient tolerating well. #Depression: patient should continue sertraline. Dose just increased, And patient is feeling better. Control at this time. Patient falls with therapy once a week, next appointment is tomorrow. She does have support with her grandmother, but does not have support at home with her mother/sister. Patient does have a history of self-harm rubbing her thumb against a tape dispenser. She declines any suicidal ideations now. She does have the crisis hotline. Has never been hospitalized. Patient provided with walk-in clinic for psychiatric needs in [place] to use as needed. She should call the office with any questions or concerns. Patient is understanding it is feeling motivated at this time.This conversation was had with patients grandmother in the room as well who is understanding. 01/31/2024: BMI 31.83, weight 157.63. Continue Wegovy 1.7 mg, patient states that she is intermittently constipated has a bowel movement every 2 days. She is continuing with MiraLAX and Colace at this time, states that her PCP and neurologist are aware that she is on Wegovy 1.7 and is intermittently constipated. Patient encouraged to drink more water as this may help with constipation, she is dehydrated upon SECA scale today. Patient did bring with her a bag of her disposable pen needles from [employer] to dispose in office today. #Hydrocephalus: Patient does follow with neurology, she is doing well on Emgality, states that she recently had her shunt examined and all is well. Time spent 30 minutes with greater than 50% on care coordination and patient education. Patient will follow-up in one month for weight management. All patient questions answered in office today. Patient should call the office in the meantime with any questions or concerns. Total time spent wiht patient is 30 minutes , over hald being face to face time. Case discussed with collaborating physician Althea Mooney who reviewed the assessment and plan. Chart, medications, labs, vital signs reviewed. Dictation was accomplished with the use of [employer] voice recognition software, prone to medical misidentifications and grammatical errors. This is unintentional and the practitioner does try to identify and correct these, but some could still be present. Please do not hesitate to contact practitioner for clarification. 05/05/2024 Obesity (ICD-10 - E66.9) Ayde Is a 22-year-old female who presents the office for a weight management follow-up. 12/28 weight 199.2, BMI of 40.23. 01/13 weight 191.3, BMI of 38.63. 02/14 Weight 190.3, BMI 38.43 03/27/2022: weight 187, BMI 37.77 - Topamax increase by a neurologist. Patient joined [employer]. Will continue with lifestyle modifications. 04/24/22: weight 184.7, BMI 37.3- Continues to be pleased with her weight loss with lifestyle modifications. Sertraline just increased by PCP. Topamax increased by neurologist. Patient is doing well, no concerns. Great support from her grandmother. Encouraged to continue lifestyle modificationsWorking on consistency. 06/19/22: weight 186.9, BMI 37.75. The patient is struggling with lifestyle modifications. States that her school has been causing her much stress that she has not been able to focus on diet/exercise. Received [facility] today. Will focus on planning her foods for the next four weeks, and consider weight loss medications in the future. Patient educated with history of hydrocephalus, that she will not qualify for phentermine due to cardiac risk factor/ /elevation in blood pressure. She's in the process of talking to neurology about potentially increasing Topamax. Following with therapy regularly. 07/17/22 Weight 184.5 BMI 37.26 Patient lost 2lbs with lifestyle changes will submit patient for Wegovy 0.25mg subq weekly 09/05/22: BMI 37 Weight 184. Awaiting Saxenda. 11/28/22: BMI 38 Weight 191. Discussed importance of taking care of whole self. Recommended looking for a therapist on [facility]. Discused talking to PCP about changing or adding on Rexulti or Vrylar. Discussed compounded semaglutide cost, side effects. Agreeable to in office semaglutide. Sema 0.25 mg subcu administered. Pt warned of s/e, as well as importnace of adequate water/protein intake. 01/09/23: BMI 38 weight 189. Increase to Semaglutide 0.5 compounded. Increase water intake, daily Miralax. Consider Zepbound when available for affordability. 03/19/23: BMI 37, Weght 183. 6lb down, will send for Wegovy 1.7 mg subcu weekly. Discussed admisnistartion/storag e 07/12/23: BMI 35, Weight 172. Continue Wegovy 1.7 mg subcu weekly. 08/27/23: BMI 34, Weight 170. Patient reports that she has had increased fast food intake, and has limited exercise. She also had COVID 1 week ago. She denies any nausea or vomiting. She does report some heartburn with eating spicy or greasy foods. She also endorses mild diarrhea with fast food. Patient was encouraged to increase her resistance training and exercise. Patient's water is about 64 ounces, slightly more would be improved. Will increase dose of Wegovy from 1.7 to 2.4 mg. 10/09/23: BMI 33, Weight 165. Body composition scale shows muscle loss. Discussed importance of eating smaller meals, slowing down how quickly she is eating and exercising. 12/24/23: BMI 32, Weight 160 lb. Decrease to Wegovy 1.7 mg subcu weekly. Change to lansoprazole 30 mg po daily. 03/20/24: BMI 31, Weight 156, continue the Wegovy 1.7 mg subcu weekly. Continue exercise. Congratulted on efforts. Lansopraozole working. 05/05/24: BMI 31, Weight 157. Currently plateau'd. Cannot go up to Wegovy 2.4 mg subcu weekly due to GI s/e. Will attempt change to Zepbound 5 mg subcu weekly. Needs to eat smaller meals and increase protein intake. Patient is only doing limited exercise. Discussed need for resistance training with light weights to start at least 2-3 days a week. #Patient has a history of hydrocephalus, she should continue following with neurology. She is on Topamax which will help with weight loss.Occipital nerve treatment through paid management on February 22. Topamax increase by neurologist, Patient tolerating well. #Depression: patient should continue sertraline. Dose just increased, And patient is feeling better. Control at this time. Patient falls with therapy once a week, next appointment is tomorrow. She does have support with her grandmother, but does not have support at home with her mother/sister. Patient does have a history of self-harm rubbing her thumb against a tape dispenser. She declines any suicidal ideations now. She does have the crisis hotline. Has never been hospitalized. Patient provided with walk-in clinic for psychiatric needs in [place] to use as needed. She should call the office with any questions or concerns. Patient is understanding it is feeling motivated at this time.This conversation was had with patients grandmother in the room as well who is understanding. 01/31/2024: BMI 31.83, weight 157.63. Continue Wegovy 1.7 mg, patient states that she is intermittently constipated has a bowel movement every 2 days. She is continuing with MiraLAX and Colace at this time, states that her PCP and neurologist are aware that she is on Wegovy 1.7 and is intermittently constipated. Patient encouraged to drink more water as this may help with constipation, she is dehydrated upon SECA scale today. Patient did bring with her a bag of her disposable pen needles from [employer] to dispose in office today. #Hydrocephalus: Patient does follow with neurology, she is doing well on Emgality, states that she recently had her shunt examined and all is well. Time spent 30 minutes with greater than 50% on care coordination and patient education. Patient will follow-up in one month for weight management. All patient questions answered in office today. Patient should call the office in the meantime with any questions or concerns. Total time spent wiht patient is 30 minutes , over hald being face to face time. Case discussed with collaborating physician Althea Mooney who reviewed the assessment and plan. Chart, medications, labs, vital signs reviewed. Dictation was accomplished with the use of [employer] voice recognition software, prone to medical misidentifications and grammatical errors. This is unintentional and the practitioner does try to identify and correct these, but some could still be present. Please do not hesitate to contact practitioner for clarification. 06/24/2024 BMI 31.0-31.9,dania lt (ICD-10 - Z68.31) Ayde Is a 22-year-old female who presents the office for a weight management follow-up. 12/28 weight 199.2, BMI of 40.23. 01/13 weight 191.3, BMI of 38.63. 02/14 Weight 190.3, BMI 38.43 03/27/2022: weight 187, BMI 37.77 - Topamax increase by a neurologist. Patient joined [employer]. Will continue with lifestyle modifications. 04/24/22: weight 184.7, BMI 37.3- Continues to be pleased with her weight loss with lifestyle modifications. Sertraline just increased by PCP. Topamax increased by neurologist. Patient is doing well, no concerns. Great support from her grandmother. Encouraged to continue lifestyle modificationsWorking on consistency. 06/19/22: weight 186.9, BMI 37.75. The patient is struggling with lifestyle modifications. States that her school has been causing her much stress that she has not been able to focus on diet/exercise. [facility]. Will focus on planning her foods for the next four weeks, and consider weight loss medications in the future. Patient educated with history of hydrocephalus, that she will not qualify for phentermine due to cardiac risk factor/ /elevation in blood pressure. She's in the process of talking to neurology about potentially increasing Topamax. Following with therapy regularly. 07/17/22 Weight 184.5 BMI 37.26 Patient lost 2lbs with lifestyle changes will submit patient for Wegovy 0.25mg subq weekly 09/05/22: BMI 37 Weight 184. Awaiting Saxenda. 11/28/22: BMI 38 Weight 191. Discussed importance of taking care of whole self. Recommended looking for a therapist on [employer]. Discused talking to PCP about changing or adding on Rexulti or Vrylar. Discussed compounded semaglutide cost, side effects. Agreeable to in office semaglutide. Sema 0.25 mg subcu administered. Pt warned of s/e, as well as importnace of adequate water/protein intake. 01/09/23: BMI 38 weight 189. Increase to Semaglutide 0.5 compounded. Increase water intake, daily Miralax. Consider Zepbound when available for affordability. 03/19/23: BMI 37, Weght 183. 6lb down, will send for Wegovy 1.7 mg subcu weekly. Discussed admisnistartion/storag e 07/12/23: BMI 35, Weight 172. Continue Wegovy 1.7 mg subcu weekly. 08/27/23: BMI 34, Weight 170. Patient reports that she has had increased fast food intake, and has limited exercise. She also had COVID 1 week ago. She denies any nausea or vomiting. She does report some heartburn with eating spicy or greasy foods. She also endorses mild diarrhea with fast food. Patient was encouraged to increase her resistance training and exercise. Patient's water is about 64 ounces, slightly more would be improved. Will increase dose of Wegovy from 1.7 to 2.4 mg. 10/09/23: BMI 33, Weight 165. Body composition scale shows muscle loss. Discussed importance of eating smaller meals, slowing down how quickly she is eating and exercising. 12/24/23: BMI 32, Weight 160 lb. Decrease to Wegovy 1.7 mg subcu weekly. Change to lansoprazole 30 mg po daily. 03/20/24: BMI 31, Weight 156, continue the Wegovy 1.7 mg subcu weekly. Continue exercise. Congratulted on efforts. Lansopraozole working. 05/05/24: BMI 31, Weight 157. Currently plateau'd. Cannot go up to Wegovy 2.4 mg subcu weekly due to GI s/e. Will attempt change to Zepbound 5 mg subcu weekly. Needs to eat smaller meals and increase protein intake. Patient is only doing limited exercise. Discussed need for resistance training with light weights to start at least 2-3 days a week. 06/24/24: BMI 31, Weight 153. Increase to Zepbound 5 mg subcu weekly. Pt tolerating with less constipation. #Patient has a history of hydrocephalus, she should continue following with neurology. She is on Topamax which will help with weight loss.Occipital nerve treatment through paid management on February 22. Topamax increase by neurologist, Patient tolerating well. #Depression: patient should continue sertraline. Dose just increased, And patient is feeling better. Control at this time. Patient falls with therapy once a week, next appointment is tomorrow. She does have support with her grandmother, but does not have support at home with her mother/sister. Patient does have a history of self-harm rubbing her thumb against a tape dispenser. She declines any suicidal ideations now. She does have the crisis hotline. Has never been hospitalized. Patient provided with walk-in clinic for psychiatric needs in [place] to use as needed. She should call the office with any questions or concerns. Patient is understanding it is feeling motivated at this time.This conversation was had with patients grandmother in the room as well who is understanding. 01/31/2024: BMI 31.83, weight 157.63. Continue Wegovy 1.7 mg, patient states that she is intermittently constipated has a bowel movement every 2 days. She is continuing with MiraLAX and Colace at this time, states that her PCP and neurologist are aware that she is on Wegovy 1.7 and is intermittently constipated. Patient encouraged to drink more water as this may help with constipation, she is dehydrated upon SECA scale today. Patient did bring with her a bag of her disposable pen needles from [employer] to dispose in office today. #Hydrocephalus: Patient does follow with neurology, she is doing well on Emgality, states that she recently had her shunt examined and all is well. Time spent 30 minutes with greater than 50% on care coordination and patient education. Patient will follow-up in one month for weight management. All patient questions answered in office today. Patient should call the office in the meantime with any questions or concerns. Total time spent wiht patient is 30 minutes , over hald being face to face time. Case discussed with collaborating physician Althea Mooney who reviewed the assessment and plan. Chart, medications, labs, vital signs reviewed. Dictation was accomplished with the use of [employer] voice recognition software, prone to medical misidentifications and grammatical errors. This is unintentional and the practitioner does try to identify and correct these, but some could still be present. Please do not hesitate to contact practitioner for clarification. 06/24/2024 Obesity (ICD-10 - E66.9) Ayde Is a 22-year-old female who presents the office for a weight management follow-up. 12/28 weight 199.2, BMI of 40.23. 01/13 weight 191.3, BMI of 38.63. 02/14 Weight 190.3, BMI 38.43 03/27/2022: weight 187, BMI 37.77 - Topamax increase by a neurologist. Patient joined [employer]. Will continue with lifestyle modifications. 04/24/22: weight 184.7, BMI 37.3- Continues to be pleased with her weight loss with lifestyle modifications. Sertraline just increased by PCP. Topamax increased by neurologist. Patient is doing well, no concerns. Great support from her grandmother. Encouraged to continue lifestyle modificationsWorking on consistency. 06/19/22: weight 186.9, BMI 37.75. The patient is struggling with lifestyle modifications. States that her school has been causing her much stress that she has not been able to focus on diet/exercise. Received [facility] today. Will focus on planning her foods for the next four weeks, and consider weight loss medications in the future. Patient educated with history of hydrocephalus, that she will not qualify for phentermine due to cardiac risk factor/ /elevation in blood pressure. She's in the process of talking to neurology about potentially increasing Topamax. Following with therapy regularly. 07/17/22 Weight 184.5 BMI 37.26 Patient lost 2lbs with lifestyle changes will submit patient for Wegovy 0.25mg subq weekly 09/05/22: BMI 37 Weight 184. Awaiting Saxenda. 11/28/22: BMI 38 Weight 191. Discussed importance of taking care of whole self. Recommended looking for a therapist on [employer]. Discused talking to PCP about changing or adding on Rexulti or Vrylar. Discussed compounded semaglutide cost, side effects. Agreeable to in office semaglutide. Sema 0.25 mg subcu administered. Pt warned of s/e, as well as importnace of adequate water/protein intake. 01/09/23: BMI 38 weight 189. Increase to Semaglutide 0.5 compounded. Increase water intake, daily Miralax. Consider Zepbound when available for affordability. 03/19/23: BMI 37, Weght 183. 6lb down, will send for Wegovy 1.7 mg subcu weekly. Discussed admisnistartion/storag e 07/12/23: BMI 35, Weight 172. Continue Wegovy 1.7 mg subcu weekly. 08/27/23: BMI 34, Weight 170. Patient reports that she has had increased fast food intake, and has limited exercise. She also had COVID 1 week ago. She denies any nausea or vomiting. She does report some heartburn with eating spicy or greasy foods. She also endorses mild diarrhea with fast food. Patient was encouraged to increase her resistance training and exercise. Patient's water is about 64 ounces, slightly more would be improved. Will increase dose of Wegovy from 1.7 to 2.4 mg. 10/09/23: BMI 33, Weight 165. Body composition scale shows muscle loss. Discussed importance of eating smaller meals, slowing down how quickly she is eating and exercising. 12/24/23: BMI 32, Weight 160 lb. Decrease to Wegovy 1.7 mg subcu weekly. Change to lansoprazole 30 mg po daily. 03/20/24: BMI 31, Weight 156, continue the Wegovy 1.7 mg subcu weekly. Continue exercise. Congratulted on efforts. Lansopraozole working. 05/05/24: BMI 31, Weight 157. Currently plateau'd. Cannot go up to Wegovy 2.4 mg subcu weekly due to GI s/e. Will attempt change to Zepbound 5 mg subcu weekly. Needs to eat smaller meals and increase protein intake. Patient is only doing limited exercise. Discussed need for resistance training with light weights to start at least 2-3 days a week. 06/24/24: BMI 31, Weight 153. Increase to Zepbound 5 mg subcu weekly. Pt tolerating with less constipation. #Patient has a history of hydrocephalus, she should continue following with neurology. She is on Topamax which will help with weight loss.Occipital nerve treatment through paid management on February 22. Topamax increase by neurologist, Patient tolerating well. #Depression: patient should continue sertraline. Dose just increased, And patient is feeling better. Control at this time. Patient falls with therapy once a week, next appointment is tomorrow. She does have support with her grandmother, but does not have support at home with her mother/sister. Patient does have a history of self-harm rubbing her thumb against a tape dispenser. She declines any suicidal ideations now. She does have the crisis hotline. Has never been hospitalized. Patient provided with walk-in clinic for psychiatric needs in [place] to use as needed. She should call the office with any questions or concerns. Patient is understanding it is feeling motivated at this time.This conversation was had with patients grandmother in the room as well who is understanding. 01/31/2024: BMI 31.83, weight 157.63. Continue Wegovy 1.7 mg, patient states that she is intermittently constipated has a bowel movement every 2 days. She is continuing with MiraLAX and Colace at this time, states that her PCP and neurologist are aware that she is on Wegovy 1.7 and is intermittently constipated. Patient encouraged to drink more water as this may help with constipation, she is dehydrated upon SECA scale today. Patient did bring with her a bag of her disposable pen needles from [employer] to dispose in office today. #Hydrocephalus: Patient does follow with neurology, she is doing well on Emgality, states that she recently had her shunt examined and all is well. Time spent 30 minutes with greater than 50% on care coordination and patient education. Patient will follow-up in one month for weight management. All patient questions answered in office today. Patient should call the office in the meantime with any questions or concerns. Total time spent wiht patient is 30 minutes , over hald being face to face time. Case discussed with collaborating physician Althea Mooney who reviewed the assessment and plan. Chart, medications, labs, vital signs reviewed. Dictation was accomplished with the use of [employer] voice recognition software, prone to medical misidentifications and grammatical errors. This is unintentional and the practitioner does try to identify and correct these, but some could still be present. Please do not hesitate to contact practitioner for clarification. 08/05/2024 BMI 31.0-31.9,dania lt (ICD-10 - Z68.31) Ayde Is a 22-year-old female who presents the office for a weight management follow-up. 12/28 weight 199.2, BMI of 40.23. 01/13 weight 191.3, BMI of 38.63. 02/14 Weight 190.3, BMI 38.43 03/27/2022: weight 187, BMI 37.77 - Topamax increase by a neurologist. Patient joined [employer]. Will continue with lifestyle modifications. 04/24/22: weight 184.7, BMI 37.3- Continues to be pleased with her weight loss with lifestyle modifications. Sertraline just increased by PCP. Topamax increased by neurologist. Patient is doing well, no concerns. Great support from her grandmother. Encouraged to continue lifestyle modificationsWorking on consistency. 06/19/22: weight 186.9, BMI 37.75. The patient is struggling with lifestyle modifications. States that her school has been causing her much stress that she has not been able to focus on diet/exercise. Received [facility] today. Will focus on planning her foods for the next four weeks, and consider weight loss medications in the future. Patient educated with history of hydrocephalus, that she will not qualify for phentermine due to cardiac risk factor/ /elevation in blood pressure. She's in the process of talking to neurology about potentially increasing Topamax. Following with therapy regularly. 07/17/22 Weight 184.5 BMI 37.26 Patient lost 2lbs with lifestyle changes will submit patient for Wegovy 0.25mg subq weekly 09/05/22: BMI 37 Weight 184. Awaiting Saxenda. 11/28/22: BMI 38 Weight 191. Discussed importance of taking care of whole self. Recommended looking for a therapist on [employer] [facility]. Discused talking to PCP about changing or adding on Rexulti or Vrylar. Discussed compounded semaglutide cost, side effects. Agreeable to in office semaglutide. Sema 0.25 mg subcu administered. Pt warned of s/e, as well as importnace of adequate water/protein intake. 01/09/23: BMI 38 weight 189. Increase to Semaglutide 0.5 compounded. Increase water intake, daily Miralax. Consider Zepbound when available for affordability. 03/19/23: BMI 37, Weght 183. 6lb down, will send for Wegovy 1.7 mg subcu weekly. Discussed admisnistartion/storag e 07/12/23: BMI 35, Weight 172. Continue Wegovy 1.7 mg subcu weekly. 08/27/23: BMI 34, Weight 170. Patient reports that she has had increased fast food intake, and has limited exercise. She also had COVID 1 week ago. She denies any nausea or vomiting. She does report some heartburn with eating spicy or greasy foods. She also endorses mild diarrhea with fast food. Patient was encouraged to increase her resistance training and exercise. Patient's water is about 64 ounces, slightly more would be improved. Will increase dose of Wegovy from 1.7 to 2.4 mg. 10/09/23: BMI 33, Weight 165. Body composition scale shows muscle loss. Discussed importance of eating smaller meals, slowing down how quickly she is eating and exercising. 12/24/23: BMI 32, Weight 160 lb. Decrease to Wegovy 1.7 mg subcu weekly. Change to lansoprazole 30 mg po daily. 03/20/24: BMI 31, Weight 156, continue the Wegovy 1.7 mg subcu weekly. Continue exercise. Congratulted on efforts. Lansopraozole working. 05/05/24: BMI 31, Weight 157. Currently plateau'd. Cannot go up to Wegovy 2.4 mg subcu weekly due to GI s/e. Will attempt change to Zepbound 5 mg subcu weekly. Needs to eat smaller meals and increase protein intake. Patient is only doing limited exercise. Discussed need for resistance training with light weights to start at least 2-3 days a week. 06/24/24: BMI 31, Weight 153. Increase to Zepbound 5 mg subcu weekly. Pt tolerating with less constipation. 08/05/24: BMI 31, Weight 154. Has [employer], switched back to Wegovy. Currently on 1.7 mg dose. Tolerating well, snacking more. #Patient has a history of hydrocephalus, she should continue following with neurology. She is on Topamax which will help with weight loss.Occipital nerve treatment through paid management on February 22. Topamax increase by neurologist, Patient tolerating well. #Depression: patient should continue sertraline. Dose just increased, And patient is feeling better. Control at this time. Patient falls with therapy once a week, next appointment is tomorrow. She does have support with her grandmother, but does not have support at home with her mother/sister. Patient does have a history of self-harm rubbing her thumb against a tape dispenser. She declines any suicidal ideations now. She does have the crisis hotline. Has never been hospitalized. Patient provided with walk-in clinic for psychiatric needs in [place] to use as needed. She should call the office with any questions or concerns. Patient is understanding it is feeling motivated at this time.This conversation was had with patients grandmother in the room as well who is understanding. 01/31/2024: BMI 31.83, weight 157.63. Continue Wegovy 1.7 mg, patient states that she is intermittently constipated has a bowel movement every 2 days. She is continuing with MiraLAX and Colace at this time, states that her PCP and neurologist are aware that she is on Wegovy 1.7 and is intermittently constipated. Patient encouraged to drink more water as this may help with constipation, she is dehydrated upon SECA scale today. Patient did bring with her a bag of her disposable pen needles from [employer] to dispose in office today. #Hydrocephalus: Patient does follow with neurology, she is doing well on Emgality, states that she recently had her shunt examined and all is well. Time spent 30 minutes with greater than 50% on care coordination and patient education. Patient will follow-up in one month for weight management. All patient questions answered in office today. Patient should call the office in the meantime with any questions or concerns. Total time spent wiht patient is 30 minutes , over hald being face to face time. Case discussed with collaborating physician Althea Mooney who reviewed the assessment and plan. Chart, medications, labs, vital signs reviewed. Dictation was accomplished with the use of [employer] voice recognition software, prone to medical misidentifications and grammatical errors. This is unintentional and the practitioner does try to identify and correct these, but some could still be present. Please do not hesitate to contact practitioner for clarification. 08/05/2024 Obesity (ICD-10 - E66.9) Ayde Is a 22-year-old female who presents the office for a weight management follow-up. 12/28 weight 199.2, BMI of 40.23. 01/13 weight 191.3, BMI of 38.63. 02/14 Weight 190.3, BMI 38.43 03/27/2022: weight 187, BMI 37.77 - Topamax increase by a neurologist. Patient joined [employer]. Will continue with lifestyle modifications. 04/24/22: weight 184.7, BMI 37.3- Continues to be pleased with her weight loss with lifestyle modifications. Sertraline just increased by PCP. Topamax increased by neurologist. Patient is doing well, no concerns. Great support from her grandmother. Encouraged to continue lifestyle modificationsWorking on consistency. 06/19/22: weight 186.9, BMI 37.75. The patient is struggling with lifestyle modifications. States that her school has been causing her much stress that she has not been able to focus on diet/exercise. Received [facility] today. Will focus on planning her foods for the next four weeks, and consider weight loss medications in the future. Patient educated with history of hydrocephalus, that she will not qualify for phentermine due to cardiac risk factor/ /elevation in blood pressure. She's in the process of talking to neurology about potentially increasing Topamax. Following with therapy regularly. 07/17/22 Weight 184.5 BMI 37.26 Patient lost 2lbs with lifestyle changes will submit patient for Wegovy 0.25mg subq weekly 09/05/22: BMI 37 Weight 184. Awaiting Saxenda. 11/28/22: BMI 38 Weight 191. Discussed importance of taking care of whole self. Recommended looking for a therapist on [employer] [facility]. Discused talking to PCP about changing or adding on Rexulti or Vrylar. Discussed compounded semaglutide cost, side effects. Agreeable to in office semaglutide. Sema 0.25 mg subcu administered. Pt warned of s/e, as well as importnace of adequate water/protein intake. 01/09/23: BMI 38 weight 189. Increase to Semaglutide 0.5 compounded. Increase water intake, daily Miralax. Consider Zepbound when available for affordability. 03/19/23: BMI 37, Weght 183. 6lb down, will send for Wegovy 1.7 mg subcu weekly. Discussed admisnistartion/storag e 07/12/23: BMI 35, Weight 172. Continue Wegovy 1.7 mg subcu weekly. 08/27/23: BMI 34, Weight 170. Patient reports that she has had increased fast food intake, and has limited exercise. She also had COVID 1 week ago. She denies any nausea or vomiting. She does report some heartburn with eating spicy or greasy foods. She also endorses mild diarrhea with fast food. Patient was encouraged to increase her resistance training and exercise. Patient's water is about 64 ounces, slightly more would be improved. Will increase dose of Wegovy from 1.7 to 2.4 mg. 10/09/23: BMI 33, Weight 165. Body composition scale shows muscle loss. Discussed importance of eating smaller meals, slowing down how quickly she is eating and exercising. 12/24/23: BMI 32, Weight 160 lb. Decrease to Wegovy 1.7 mg subcu weekly. Change to lansoprazole 30 mg po daily. 03/20/24: BMI 31, Weight 156, continue the Wegovy 1.7 mg subcu weekly. Continue exercise. Congratulted on efforts. Lansopraozole working. 05/05/24: BMI 31, Weight 157. Currently plateau'd. Cannot go up to Wegovy 2.4 mg subcu weekly due to GI s/e. Will attempt change to Zepbound 5 mg subcu weekly. Needs to eat smaller meals and increase protein intake. Patient is only doing limited exercise. Discussed need for resistance training with light weights to start at least 2-3 days a week. 06/24/24: BMI 31, Weight 153. Increase to Zepbound 5 mg subcu weekly. Pt tolerating with less constipation. 08/05/24: BMI 31, Weight 154. Has [employer], switched back to Wegovy. Currently on 1.7 mg dose. Tolerating well, snacking more. #Patient has a history of hydrocephalus, she should continue following with neurology. She is on Topamax which will help with weight loss.Occipital nerve treatment through paid management on February 22. Topamax increase by neurologist, Patient tolerating well. #Depression: patient should continue sertraline. Dose just increased, And patient is feeling better. Control at this time. Patient falls with therapy once a week, next appointment is tomorrow. She does have support with her grandmother, but does not have support at home with her mother/sister. Patient does have a history of self-harm rubbing her thumb against a tape dispenser. She declines any suicidal ideations now. She does have the crisis hotline. Has never been hospitalized. Patient provided with walk-in clinic for psychiatric needs in [place] to use as needed. She should call the office with any questions or concerns. Patient is understanding it is feeling motivated at this time.This conversation was had with patients grandmother in the room as well who is understanding. 01/31/2024: BMI 31.83, weight 157.63. Continue Wegovy 1.7 mg, patient states that she is intermittently constipated has a bowel movement every 2 days. She is continuing with MiraLAX and Colace at this time, states that her PCP and neurologist are aware that she is on Wegovy 1.7 and is intermittently constipated. Patient encouraged to drink more water as this may help with constipation, she is dehydrated upon [employer] scale today. Patient did bring with her a bag of her disposable pen needles from [employer] to dispose in office today. #Hydrocephalus: Patient does follow with neurology, she is doing well on Emgality, states that she recently had her shunt examined and all is well. Time spent 30 minutes with greater than 50% on care coordination and patient education. Patient will follow-up in one month for weight management. All patient questions answered in office today. Patient should call the office in the meantime with any questions or concerns. Total time spent wiht patient is 30 minutes , over hald being face to face time. Case discussed with collaborating physician Althea Mooney who reviewed the assessment and plan. Chart, medications, labs, vital signs reviewed. Dictation was accomplished with the use of Un[employer] voice recognition software, prone to medical misidentifications and grammatical errors. This is unintentional and the practitioner does try to identify and correct these, but some could still be present. Please do not hesitate to contact practitioner for clarification. 09/23/2024 BMI 30.0-30.9,dania lt (ICD-10 - Z68.30) Ayde Is a 22-year-old female who presents the office for a weight management follow-up. 12/28 weight 199.2, BMI of 40.23. 01/13 weight 191.3, BMI of 38.63. 02/14 Weight 190.3, BMI 38.43 03/27/2022: weight 187, BMI 37.77 - Topamax increase by a neurologist. Patient joined [employer]. Will continue with lifestyle modifications. 04/24/22: weight 184.7, BMI 37.3- Continues to be pleased with her weight loss with lifestyle modifications. Sertraline just increased by PCP. Topamax increased by neurologist. Patient is doing well, no concerns. Great support from her grandmother. Encouraged to continue lifestyle modificationsWorking on consistency. 06/19/22: weight 186.9, BMI 37.75. The patient is struggling with lifestyle modifications. States that her school has been causing her much stress that she has not been able to focus on diet/exercise. Received MIC today. Will focus on planning her foods for the next four weeks, and consider weight loss medications in the future. Patient educated with history of hydrocephalus, that she will not qualify for phentermine due to cardiac risk factor/ /elevation in blood pressure. She's in the process of talking to neurology about potentially increasing Topamax. Following with therapy regularly. 07/17/22 Weight 184.5 BMI 37.26 Patient lost 2lbs with lifestyle changes will submit patient for Wegovy 0.25mg subq weekly 09/05/22: BMI 37 Weight 184. Awaiting Saxenda. 11/28/22: BMI 38 Weight 191. Discussed importance of taking care of whole self. Recommended looking for a therapist on [facility]. Discused talking to PCP about changing or adding on Rexulti or Vrylar. Discussed compounded semaglutide cost, side effects. Agreeable to in office semaglutide. Sema 0.25 mg subcu administered. Pt warned of s/e, as well as importnace of adequate water/protein intake. 01/09/23: BMI 38 weight 189. Increase to Semaglutide 0.5 compounded. Increase water intake, daily Miralax. Consider Zepbound when available for affordability. 03/19/23: BMI 37, Weght 183. 6lb down, will send for Wegovy 1.7 mg subcu weekly. Discussed admisnistartion/storag e 07/12/23: BMI 35, Weight 172. Continue Wegovy 1.7 mg subcu weekly. 08/27/23: BMI 34, Weight 170. Patient reports that she has had increased fast food intake, and has limited exercise. She also had COVID 1 week ago. She denies any nausea or vomiting. She does report some heartburn with eating spicy or greasy foods. She also endorses mild diarrhea with fast food. Patient was encouraged to increase her resistance training and exercise. Patient's water is about 64 ounces, slightly more would be improved. Will increase dose of Wegovy from 1.7 to 2.4 mg. 10/09/23: BMI 33, Weight 165. Body composition scale shows muscle loss. Discussed importance of eating smaller meals, slowing down how quickly she is eating and exercising. 12/24/23: BMI 32, Weight 160 lb. Decrease to Wegovy 1.7 mg subcu weekly. Change to lansoprazole 30 mg po daily. 03/20/24: BMI 31, Weight 156, continue the Wegovy 1.7 mg subcu weekly. Continue exercise. Congratulted on efforts. Lansopraozole working. 05/05/24: BMI 31, Weight 157. Currently plateau'd. Cannot go up to Wegovy 2.4 mg subcu weekly due to GI s/e. Will attempt change to Zepbound 5 mg subcu weekly. Needs to eat smaller meals and increase protein intake. Patient is only doing limited exercise. Discussed need for resistance training with light weights to start at least 2-3 days a week. 06/24/24: BMI 31, Weight 153. Increase to Zepbound 5 mg subcu weekly. Pt tolerating with less constipation. 08/05/24: BMI 31, Weight 154. Has [employer], switched back to Wegovy. Currently on 1.7 mg dose. Tolerating well, snacking more. 09/23/24: BMI 30, Weight 154 lb. Continue Wegovy 2.4 mg . Needs to increase protein. #Patient has a history of hydrocephalus, she should continue following with neurology. She is on Topamax which will help with weight loss.Occipital nerve treatment through [facility] management on February 22. Topamax increase by neurologist, Patient tolerating well. #Depression: patient should continue sertraline. Dose just increased, And patient is feeling better. Control at this time. Patient falls with therapy once a week, next appointment is tomorrow. She does have support with her grandmother, but does not have support at home with her mother/sister. Patient does have a history of self-harm rubbing her thumb against a tape dispenser. She declines any suicidal ideations now. She does have the crisis hotline. Has never been hospitalized. Patient provided with walk-in clinic for psychiatric needs in [place] to use as needed. She should call the office with any questions or concerns. Patient is understanding it is feeling motivated at this time.This conversation was had with patients grandmother in the room as well who is understanding. #Hydrocephalus: Patient does follow with neurology, she is doing well on Emgality, states that she recently had her shunt examined and all is well. Time spent 30 minutes with greater than 50% on care coordination and patient education. Patient will follow-up in one month for weight management. All patient questions answered in office today. Patient should call the office in the meantime with any questions or concerns. Total time spent wiht patient is 30 minutes , over hald being face to face time. Case discussed with collaborating physician Althea Mooney who reviewed the assessment and plan. Chart, medications, labs, vital signs reviewed. Dictation was accomplished with the use of Un[employer] voice recognition software, prone to medical misidentifications and grammatical errors. This is unintentional and the practitioner does try to identify and correct these, but some could still be present. Please do not hesitate to contact practitioner for clarification. 09/23/2024 Obesity (ICD-10 - E66.9) Ayde Is a 22-year-old female who presents the office for a weight management follow-up. 12/28 weight 199.2, BMI of 40.23. 01/13 weight 191.3, BMI of 38.63. 02/14 Weight 190.3, BMI 38.43 03/27/2022: weight 187, BMI 37.77 - Topamax increase by a neurologist. Patient joined [employer]. Will continue with lifestyle modifications. 04/24/22: weight 184.7, BMI 37.3- Continues to be pleased with her weight loss with lifestyle modifications. Sertraline just increased by PCP. Topamax increased by neurologist. Patient is doing well, no concerns. Great support from her grandmother. Encouraged to continue lifestyle modificationsWorking on consistency. 06/19/22: weight 186.9, BMI 37.75. The patient is struggling with lifestyle modifications. States that her school has been causing her much stress that she has not been able to focus on diet/exercise. Received [facility] today. Will focus on planning her foods for the next four weeks, and consider weight loss medications in the future. Patient educated with history of hydrocephalus, that she will not qualify for phentermine due to cardiac risk factor/ /elevation in blood pressure. She's in the process of talking to neurology about potentially increasing Topamax. Following with therapy regularly. 07/17/22 Weight 184.5 BMI 37.26 Patient lost 2lbs with lifestyle changes will submit patient for Wegovy 0.25mg subq weekly 09/05/22: BMI 37 Weight 184. Awaiting Saxenda. 11/28/22: BMI 38 Weight 191. Discussed importance of taking care of whole self. Recommended looking for a therapist on [facility]. Discused talking to PCP about changing or adding on Rexulti or Vrylar. Discussed compounded semaglutide cost, side effects. Agreeable to in office semaglutide. Sema 0.25 mg subcu administered. Pt warned of s/e, as well as importnace of adequate water/protein intake. 01/09/23: BMI 38 weight 189. Increase to Semaglutide 0.5 compounded. Increase water intake, daily Miralax. Consider Zepbound when available for affordability. 03/19/23: BMI 37, Weght 183. 6lb down, will send for Wegovy 1.7 mg subcu weekly. Discussed admisnistartion/storag e 07/12/23: BMI 35, Weight 172. Continue Wegovy 1.7 mg subcu weekly. 08/27/23: BMI 34, Weight 170. Patient reports that she has had increased fast food intake, and has limited exercise. She also had COVID 1 week ago. She denies any nausea or vomiting. She does report some heartburn with eating spicy or greasy foods. She also endorses mild diarrhea with fast food. Patient was encouraged to increase her resistance training and exercise. Patient's water is about 64 ounces, slightly more would be improved. Will increase dose of Wegovy from 1.7 to 2.4 mg. 10/09/23: BMI 33, Weight 165. Body composition scale shows muscle loss. Discussed importance of eating smaller meals, slowing down how quickly she is eating and exercising. 12/24/23: BMI 32, Weight 160 lb. Decrease to Wegovy 1.7 mg subcu weekly. Change to lansoprazole 30 mg po daily. 03/20/24: BMI 31, Weight 156, continue the Wegovy 1.7 mg subcu weekly. Continue exercise. Congratulted on efforts. Lansopraozole working. 05/05/24: BMI 31, Weight 157. Currently plateau'd. Cannot go up to Wegovy 2.4 mg subcu weekly due to GI s/e. Will attempt change to Zepbound 5 mg subcu weekly. Needs to eat smaller meals and increase protein intake. Patient is only doing limited exercise. Discussed need for resistance training with light weights to start at least 2-3 days a week. 06/24/24: BMI 31, Weight 153. Increase to Zepbound 5 mg subcu weekly. Pt tolerating with less constipation. 08/05/24: BMI 31, Weight 154. Has [employer], switched back to Wegovy. Currently on 1.7 mg dose. Tolerating well, snacking more. 09/23/24: BMI 30, Weight 154 lb. Continue Wegovy 2.4 mg . Needs to increase protein. #Patient has a history of hydrocephalus, she should continue following with neurology. She is on Topamax which will help with weight loss.Occipital nerve treatment through [facility] management on February 22. Topamax increase by neurologist, Patient tolerating well. #Depression: patient should continue sertraline. Dose just increased, And patient is feeling better. Control at this time. Patient falls with therapy once a week, next appointment is tomorrow. She does have support with her grandmother, but does not have support at home with her mother/sister. Patient does have a history of self-harm rubbing her thumb against a tape dispenser. She declines any suicidal ideations now. She does have the crisis hotline. Has never been hospitalized. Patient provided with walk-in clinic for psychiatric needs in [place] to use as needed. She should call the office with any questions or concerns. Patient is understanding it is feeling motivated at this time.This conversation was had with patients grandmother in the room as well who is understanding. #Hydrocephalus: Patient does follow with neurology, she is doing well on Emgality, states that she recently had her shunt examined and all is well. Time spent 30 minutes with greater than 50% on care coordination and patient education. Patient will follow-up in one month for weight management. All patient questions answered in office today. Patient should call the office in the meantime with any questions or concerns. Total time spent wiht patient is 30 minutes , over hald being face to face time. Case discussed with collaborating physician Althea Mooney who reviewed the assessment and plan. Chart, medications, labs, vital signs reviewed. Dictation was accomplished with the use of [employer] voice recognition software, prone to medical misidentifications and grammatical errors. This is unintentional and the practitioner does try to identify and correct these, but some could still be present. Please do not hesitate to contact practitioner for clarification. 11/25/2024 BMI 30.0-30.9,dania lt (ICD-10 - Z68.30) Ayde Is a 24-year-old female who presents the office for a weight management follow-up. 12/28 weight 199.2, BMI of 40.23. 01/13 weight 191.3, BMI of 38.63. 02/14 Weight 190.3, BMI 38.43 03/27/2022: weight 187, BMI 37.77 - Topamax increase by a neurologist. Patient joined [employer]. Will continue with lifestyle modifications. 04/24/22: weight 184.7, BMI 37.3- Continues to be pleased with her weight loss with lifestyle modifications. Sertraline just increased by PCP. Topamax increased by neurologist. Patient is doing well, no concerns. Great support from her grandmother. Encouraged to continue lifestyle modificationsWorking on consistency. 06/19/22: weight 186.9, BMI 37.75. The patient is struggling with lifestyle modifications. States that her school has been causing her much stress that she has not been able to focus on diet/exercise. Received [facility] today. Will focus on planning her foods for the next four weeks, and consider weight loss medications in the future. Patient educated with history of hydrocephalus, that she will not qualify for phentermine due to cardiac risk factor/ /elevation in blood pressure. She's in the process of talking to neurology about potentially increasing Topamax. Following with therapy regularly. 07/17/22 Weight 184.5 BMI 37.26 Patient lost 2lbs with lifestyle changes will submit patient for Wegovy 0.25mg subq weekly 09/05/22: BMI 37 Weight 184. Awaiting Saxenda. 11/28/22: BMI 38 Weight 191. Discussed importance of taking care of whole self. Recommended looking for a therapist on [employer]. Discused talking to PCP about changing or adding on Rexulti or Vrylar. Discussed compounded semaglutide cost, side effects. Agreeable to in office semaglutide. Sema 0.25 mg subcu administered. Pt warned of s/e, as well as importnace of adequate water/protein intake. 01/09/23: BMI 38 weight 189. Increase to Semaglutide 0.5 compounded. Increase water intake, daily Miralax. Consider Zepbound when available for affordability. 03/19/23: BMI 37, Weght 183. 6lb down, will send for Wegovy 1.7 mg subcu weekly. Discussed admisnistartion/storag e 07/12/23: BMI 35, Weight 172. Continue Wegovy 1.7 mg subcu weekly. 08/27/23: BMI 34, Weight 170. Patient reports that she has had increased fast food intake, and has limited exercise. She also had COVID 1 week ago. She denies any nausea or vomiting. She does report some heartburn with eating spicy or greasy foods. She also endorses mild diarrhea with fast food. Patient was encouraged to increase her resistance training and exercise. Patient's water is about 64 ounces, slightly more would be improved. Will increase dose of Wegovy from 1.7 to 2.4 mg. 10/09/23: BMI 33, Weight 165. Body composition scale shows muscle loss. Discussed importance of eating smaller meals, slowing down how quickly she is eating and exercising. 12/24/23: BMI 32, Weight 160 lb. Decrease to Wegovy 1.7 mg subcu weekly. Change to lansoprazole 30 mg po daily. 03/20/24: BMI 31, Weight 156, continue the Wegovy 1.7 mg subcu weekly. Continue exercise. Congratulted on efforts. Lansopraozole working. 05/05/24: BMI 31, Weight 157. Currently plateau'd. Cannot go up to Wegovy 2.4 mg subcu weekly due to GI s/e. Will attempt change to Zepbound 5 mg subcu weekly. Needs to eat smaller meals and increase protein intake. Patient is only doing limited exercise. Discussed need for resistance training with light weights to start at least 2-3 days a week. 06/24/24: BMI 31, Weight 153. Increase to Zepbound 5 mg subcu weekly. Pt tolerating with less constipation. 08/05/24: BMI 31, Weight 154. Has [employer], switched back to Wegovy. Currently on 1.7 mg dose. Tolerating well, snacking more. 09/23/24: BMI 30, Weight 154 lb. Continue Wegovy 2.4 mg . Needs to increase protein. #Patient has a history of hydrocephalus, she should continue following with neurology. She is on Topamax which will help with weight loss.Occipital nerve treatment through paid management on February 22. Topamax increase by neurologist, Patient tolerating well. #Depression: patient should continue sertraline. Dose just increased, And patient is feeling better. Control at this time. Patient falls with therapy once a week, next appointment is tomorrow. She does have support with her grandmother, but does not have support at home with her mother/sister. Patient does have a history of self-harm rubbing her thumb against a tape dispenser. She declines any suicidal ideations now. She does have the crisis hotline. Has never been hospitalized. Patient provided with walk-in clinic for psychiatric needs in [place] to use as needed. She should call the office with any questions or concerns. Patient is understanding it is feeling motivated at this time.This conversation was had with patients grandmother in the room as well who is understanding. 11/25/2024: BMI 30.49, weight 151.0 patient admits that Wegovy 2.4 mg is not suppressing her appetite and her hunger cravings is much as Zepbound was. Will see if patient can be approved for [employer] potentially #Depression: Patient states that her citalopram was recently increased due to her increased feelings of depression that revolve around her job at this time. However during our conversation she did receive a phone call that she was approved for her new job offer which she is congratulated for. This will be helpful with patient's feelings of depression. #Hydrocephalus: Patient continues to follow with neurologist #Constipation: Patient currently on Linzess 145 mcg daily I did tell patient to contact her PCP about increasing her Linzess dose, additionally patient's lack of water could be contributing towards patient's lack of bowel movements. I did advise patient to increase her water intake, increase her fiber I did give patient handout on high-fiber foods. Advised patient to move her body to stimulate bowel movements as well. #Hydrocephalus: Patient does follow with neurology, she is doing well on Emgality, states that she recently had her shunt examined and all is well. Time spent 30 minutes with greater than 50% on care coordination and patient education. Patient will follow-up in one month for weight management. All patient questions answered in office today. Patient should call the office in the meantime with any questions or concerns. Total time spent wiht patient is 30 minutes , over hald being face to face time. Case discussed with collaborating physician Althea Mooney who reviewed the assessment and plan. Chart, medications, labs, vital signs reviewed. Dictation was accomplished with the use of [employer] voice recognition software, prone to medical misidentifications and grammatical errors. This is unintentional and the practitioner does try to identify and correct these, but some could still be present. Please do not hesitate to contact practitioner for clarification. 01/06/2025 BMI 30.0-30.9,dania lt (ICD-10 - Z68.30) Ayde Is a 24-year-old female who presents the office for a weight management follow-up. 12/28 weight 199.2, BMI of 40.23. 01/13 weight 191.3, BMI of 38.63. 02/14 Weight 190.3, BMI 38.43 03/27/2022: weight 187, BMI 37.77 - Topamax increase by a neurologist. Patient joined [employer]. Will continue with lifestyle modifications. 04/24/22: weight 184.7, BMI 37.3- Continues to be pleased with her weight loss with lifestyle modifications. Sertraline just increased by PCP. Topamax increased by neurologist. Patient is doing well, no concerns. Great support from her grandmother. Encouraged to continue lifestyle modificationsWorking on consistency. 06/19/22: weight 186.9, BMI 37.75. The patient is struggling with lifestyle modifications. States that her school has been causing her much stress that she has not been able to focus on diet/exercise. Received [facility] today. Will focus on planning her foods for the next four weeks, and consider weight loss medications in the future. Patient educated with history of hydrocephalus, that she will not qualify for phentermine due to cardiac risk factor/ /elevation in blood pressure. She's in the process of talking to neurology about potentially increasing Topamax. Following with therapy regularly. 07/17/22 Weight 184.5 BMI 37.26 Patient lost 2lbs with lifestyle changes will submit patient for Wegovy 0.25mg subq weekly 09/05/22: BMI 37 Weight 184. Awaiting Saxenda. 11/28/22: BMI 38 Weight 191. Discussed importance of taking care of whole self. Recommended looking for a therapist on [employer]. Discused talking to PCP about changing or adding on Rexulti or Vrylar. Discussed compounded semaglutide cost, side effects. Agreeable to in office semaglutide. Sema 0.25 mg subcu administered. Pt warned of s/e, as well as importnace of adequate water/protein intake. 01/09/23: BMI 38 weight 189. Increase to Semaglutide 0.5 compounded. Increase water intake, daily Miralax. Consider Zepbound when available for affordability. 03/19/23: BMI 37, Weght 183. 6lb down, will send for Wegovy 1.7 mg subcu weekly. Discussed admisnistartion/storag e 07/12/23: BMI 35, Weight 172. Continue Wegovy 1.7 mg subcu weekly. 08/27/23: BMI 34, Weight 170. Patient reports that she has had increased fast food intake, and has limited exercise. She also had COVID 1 week ago. She denies any nausea or vomiting. She does report some heartburn with eating spicy or greasy foods. She also endorses mild diarrhea with fast food. Patient was encouraged to increase her resistance training and exercise. Patient's water is about 64 ounces, slightly more would be improved. Will increase dose of Wegovy from 1.7 to 2.4 mg. 10/09/23: BMI 33, Weight 165. Body composition scale shows muscle loss. Discussed importance of eating smaller meals, slowing down how quickly she is eating and exercising. 12/24/23: BMI 32, Weight 160 lb. Decrease to Wegovy 1.7 mg subcu weekly. Change to lansoprazole 30 mg po daily. 03/20/24: BMI 31, Weight 156, continue the Wegovy 1.7 mg subcu weekly. Continue exercise. Congratulted on efforts. Lansopraozole working. 05/05/24: BMI 31, Weight 157. Currently plateau'd. Cannot go up to Wegovy 2.4 mg subcu weekly due to GI s/e. Will attempt change to Zepbound 5 mg subcu weekly. Needs to eat smaller meals and increase protein intake. Patient is only doing limited exercise. Discussed need for resistance training with light weights to start at least 2-3 days a week. 06/24/24: BMI 31, Weight 153. Increase to Zepbound 5 mg subcu weekly. Pt tolerating with less constipation. 08/05/24: BMI 31, Weight 154. Has [employer], switched back to Wegovy. Currently on 1.7 mg dose. Tolerating well, snacking more. 09/23/24: BMI 30, Weight 154 lb. Continue Wegovy 2.4 mg . Needs to increase protein. #Patient has a history of hydrocephalus, she should continue following with neurology. She is on Topamax which will help with weight loss.Occipital nerve treatment through paid management on February 22. Topamax increase by neurologist, Patient tolerating well. #Depression: patient should continue sertraline. Dose just increased, And patient is feeling better. Control at this time. Patient falls with therapy once a week, next appointment is tomorrow. She does have support with her grandmother, but does not have support at home with her mother/sister. Patient does have a history of self-harm rubbing her thumb against a tape dispenser. She declines any suicidal ideations now. She does have the crisis hotline. Has never been hospitalized. Patient provided with walk-in clinic for psychiatric needs in [place] to use as needed. She should call the office with any questions or concerns. Patient is understanding it is feeling motivated at this time.This conversation was had with patients grandmother in the room as well who is understanding. 11/25/2024: BMI 30.49, weight 151.0 patient admits that Wegovy 2.4 mg is not suppressing her appetite and her hunger cravings is much as Zepbound was. Will see if patient can be approved for Mounjaro potentially 01/06/25: BMI 30, weight 149. Will increase Mounjaro to 7.5 mg subcu weekly. Patient overall tolerating well. She reports mild improvement of her constipation. Patient is current to drink water. Patient needs to find a physical activity that she enjoys, as she reports right now she is only standing on a vibrating plate twice a day. #Depression: Patient states that her citalopram was recently increased due to her increased feelings of depression that revolve around her job at this time. However during our conversation she did receive a phone call that she was approved for her new job offer which she is congratulated for. This will be helpful with patient's feelings of depression. #Hydrocephalus: Patient continues to follow with neurologist #Constipation: Patient currently on Linzess 145 mcg daily I did tell patient to contact her PCP about increasing her Linzess dose, additionally patient's lack of water could be contributing towards patient's lack of bowel movements. I did advise patient to increase her water intake, increase her fiber I did give patient handout on high-fiber foods. Advised patient to move her body to stimulate bowel movements as well. Time spent 30 minutes with greater than 50% on care coordination and patient education. Patient will follow-up in one month for weight management. All patient questions answered in office today. Patient should call the office in the meantime with any questions or concerns. Total time spent wiht patient is 30 minutes , over hald being face to face time. Case discussed with collaborating physician Althea Mooney who reviewed the assessment and plan. Chart, medications, labs, vital signs reviewed. Dictation was accomplished with the use of Unmetric voice recognition software, prone to medical misidentifications and grammatical errors. This is unintentional and the practitioner does try to identify and correct these, but some could still be present. Please do not hesitate to contact practitioner for clarification. 01/06/2025 Hydrocephalus , unspecified type (ICD-10 - G91.9) Ayde Is a 24-year-old female who presents the office for a weight management follow-up. 12/28 weight 199.2, BMI of 40.23. 01/13 weight 191.3, BMI of 38.63. 02/14 Weight 190.3, BMI 38.43 03/27/2022: weight 187, BMI 37.77 - Topamax increase by a neurologist. Patient joined [employer]. Will continue with lifestyle modifications. 04/24/22: weight 184.7, BMI 37.3- Continues to be pleased with her weight loss with lifestyle modifications. Sertraline just increased by PCP. Topamax increased by neurologist. Patient is doing well, no concerns. Great support from her grandmother. Encouraged to continue lifestyle modificationsWorking on consistency. 06/19/22: weight 186.9, BMI 37.75. The patient is struggling with lifestyle modifications. States that her school has been causing her much stress that she has not been able to focus on diet/exercise. Received [facility] today. Will focus on planning her foods for the next four weeks, and consider weight loss medications in the future. Patient educated with history of hydrocephalus, that she will not qualify for phentermine due to cardiac risk factor/ /elevation in blood pressure. She's in the process of talking to neurology about potentially increasing Topamax. Following with therapy regularly. 07/17/22 Weight 184.5 BMI 37.26 Patient lost 2lbs with lifestyle changes will submit patient for Wegovy 0.25mg subq weekly 09/05/22: BMI 37 Weight 184. Awaiting Saxenda. 11/28/22: BMI 38 Weight 191. Discussed importance of taking care of whole self. Recommended looking for a therapist on [employer]. Discused talking to PCP about changing or adding on Rexulti or Vrylar. Discussed compounded semaglutide cost, side effects. Agreeable to in office semaglutide. Sema 0.25 mg subcu administered. Pt warned of s/e, as well as importnace of adequate water/protein intake. 01/09/23: BMI 38 weight 189. Increase to Semaglutide 0.5 compounded. Increase water intake, daily Miralax. Consider Zepbound when available for affordability. 03/19/23: BMI 37, Weght 183. 6lb down, will send for Wegovy 1.7 mg subcu weekly. Discussed admisnistartion/storag e 07/12/23: BMI 35, Weight 172. Continue Wegovy 1.7 mg subcu weekly. 08/27/23: BMI 34, Weight 170. Patient reports that she has had increased fast food intake, and has limited exercise. She also had COVID 1 week ago. She denies any nausea or vomiting. She does report some heartburn with eating spicy or greasy foods. She also endorses mild diarrhea with fast food. Patient was encouraged to increase her resistance training and exercise. Patient's water is about 64 ounces, slightly more would be improved. Will increase dose of Wegovy from 1.7 to 2.4 mg. 10/09/23: BMI 33, Weight 165. Body composition scale shows muscle loss. Discussed importance of eating smaller meals, slowing down how quickly she is eating and exercising. 12/24/23: BMI 32, Weight 160 lb. Decrease to Wegovy 1.7 mg subcu weekly. Change to lansoprazole 30 mg po daily. 03/20/24: BMI 31, Weight 156, continue the Wegovy 1.7 mg subcu weekly. Continue exercise. Congratulted on efforts. Lansopraozole working. 05/05/24: BMI 31, Weight 157. Currently plateau'd. Cannot go up to Wegovy 2.4 mg subcu weekly due to GI s/e. Will attempt change to Zepbound 5 mg subcu weekly. Needs to eat smaller meals and increase protein intake. Patient is only doing limited exercise. Discussed need for resistance training with light weights to start at least 2-3 days a week. 06/24/24: BMI 31, Weight 153. Increase to Zepbound 5 mg subcu weekly. Pt tolerating with less constipation. 08/05/24: BMI 31, Weight 154. Has [employer], switched back to Wegovy. Currently on 1.7 mg dose. Tolerating well, snacking more. 09/23/24: BMI 30, Weight 154 lb. Continue Wegovy 2.4 mg . Needs to increase protein. #Patient has a history of hydrocephalus, she should continue following with neurology. She is on Topamax which will help with weight loss.Occipital nerve treatment through paid management on February 22. Topamax increase by neurologist, Patient tolerating well. #Depression: patient should continue sertraline. Dose just increased, And patient is feeling better. Control at this time. Patient falls with therapy once a week, next appointment is tomorrow. She does have support with her grandmother, but does not have support at home with her mother/sister. Patient does have a history of self-harm rubbing her thumb against a tape dispenser. She declines any suicidal ideations now. She does have the crisis hotline. Has never been hospitalized. Patient provided with walk-in clinic for psychiatric needs in [place] to use as needed. She should call the office with any questions or concerns. Patient is understanding it is feeling motivated at this time.This conversation was had with patients grandmother in the room as well who is understanding. 11/25/2024: BMI 30.49, weight 151.0 patient admits that Wegovy 2.4 mg is not suppressing her appetite and her hunger cravings is much as Zepbound was. Will see if patient can be approved for Mounjaro potentially 01/06/25: BMI 30, weight 149. Will increase Mounjaro to 7.5 mg subcu weekly. Patient overall tolerating well. She reports mild improvement of her constipation. Patient is current to drink water. Patient needs to find a physical activity that she enjoys, as she reports right now she is only standing on a vibrating plate twice a day. #Depression: Patient states that her citalopram was recently increased due to her increased feelings of depression that revolve around her job at this time. However during our conversation she did receive a phone call that she was approved for her new job offer which she is congratulated for. This will be helpful with patient's feelings of depression. #Hydrocephalus: Patient continues to follow with neurologist #Constipation: Patient currently on Linzess 145 mcg daily I did tell patient to contact her PCP about increasing her Linzess dose, additionally patient's lack of water could be contributing towards patient's lack of bowel movements. I did advise patient to increase her water intake, increase her fiber I did give patient handout on high-fiber foods. Advised patient to move her body to stimulate bowel movements as well. Time spent 30 minutes with greater than 50% on care coordination and patient education. Patient will follow-up in one month for weight management. All patient questions answered in office today. Patient should call the office in the meantime with any questions or concerns. Total time spent wiht patient is 30 minutes , over hald being face to face time. Case discussed with collaborating physician Althea Mooney who reviewed the assessment and plan. Chart, medications, labs, vital signs reviewed. Dictation was accomplished with the use of Un[employer] voice recognition software, prone to medical misidentifications and grammatical errors. This is unintentional and the practitioner does try to identify and correct these, but some could still be present. Please do not hesitate to contact practitioner for clarification. 01/06/2025 Obesity (ICD-10 - E66.9) Ayde Is a 24-year-old female who presents the office for a weight management follow-up. 12/28 weight 199.2, BMI of 40.23. 01/13 weight 191.3, BMI of 38.63. 02/14 Weight 190.3, BMI 38.43 03/27/2022: weight 187, BMI 37.77 - Topamax increase by a neurologist. Patient joined [employer]. Will continue with lifestyle modifications. 04/24/22: weight 184.7, BMI 37.3- Continues to be pleased with her weight loss with lifestyle modifications. Sertraline just increased by PCP. Topamax increased by neurologist. Patient is doing well, no concerns. Great support from her grandmother. Encouraged to continue lifestyle modificationsWorking on consistency. 06/19/22: weight 186.9, BMI 37.75. The patient is struggling with lifestyle modifications. States that her school has been causing her much stress that she has not been able to focus on diet/exercise. Received MIC today. Will focus on planning her foods for the next four weeks, and consider weight loss medications in the future. Patient educated with history of hydrocephalus, that she will not qualify for phentermine due to cardiac risk factor/ /elevation in blood pressure. She's in the process of talking to neurology about potentially increasing Topamax. Following with therapy regularly. 07/17/22 Weight 184.5 BMI 37.26 Patient lost 2lbs with lifestyle changes will submit patient for Wegovy 0.25mg subq weekly 09/05/22: BMI 37 Weight 184. Awaiting Saxenda. 11/28/22: BMI 38 Weight 191. Discussed importance of taking care of whole self. Recommended looking for a therapist on [employer]. Discused talking to PCP about changing or adding on Rexulti or Vrylar. Discussed compounded semaglutide cost, side effects. Agreeable to in office semaglutide. Sema 0.25 mg subcu administered. Pt warned of s/e, as well as importnace of adequate water/protein intake. 01/09/23: BMI 38 weight 189. Increase to Semaglutide 0.5 compounded. Increase water intake, daily Miralax. Consider Zepbound when available for affordability. 03/19/23: BMI 37, Weght 183. 6lb down, will send for Wegovy 1.7 mg subcu weekly. Discussed admisnistartion/storag e 07/12/23: BMI 35, Weight 172. Continue Wegovy 1.7 mg subcu weekly. 08/27/23: BMI 34, Weight 170. Patient reports that she has had increased fast food intake, and has limited exercise. She also had COVID 1 week ago. She denies any nausea or vomiting. She does report some heartburn with eating spicy or greasy foods. She also endorses mild diarrhea with fast food. Patient was encouraged to increase her resistance training and exercise. Patient's water is about 64 ounces, slightly more would be improved. Will increase dose of Wegovy from 1.7 to 2.4 mg. 10/09/23: BMI 33, Weight 165. Body composition scale shows muscle loss. Discussed importance of eating smaller meals, slowing down how quickly she is eating and exercising. 12/24/23: BMI 32, Weight 160 lb. Decrease to Wegovy 1.7 mg subcu weekly. Change to lansoprazole 30 mg po daily. 03/20/24: BMI 31, Weight 156, continue the Wegovy 1.7 mg subcu weekly. Continue exercise. Congratulted on efforts. Lansopraozole working. 05/05/24: BMI 31, Weight 157. Currently plateau'd. Cannot go up to Wegovy 2.4 mg subcu weekly due to GI s/e. Will attempt change to Zepbound 5 mg subcu weekly. Needs to eat smaller meals and increase protein intake. Patient is only doing limited exercise. Discussed need for resistance training with light weights to start at least 2-3 days a week. 06/24/24: BMI 31, Weight 153. Increase to Zepbound 5 mg subcu weekly. Pt tolerating with less constipation. 08/05/24: BMI 31, Weight 154. Has [employer], switched back to Wegovy. Currently on 1.7 mg dose. Tolerating well, snacking more. 09/23/24: BMI 30, Weight 154 lb. Continue Wegovy 2.4 mg . Needs to increase protein. #Patient has a history of hydrocephalus, she should continue following with neurology. She is on Topamax which will help with weight loss.Occipital nerve treatment through paid management on February 22. Topamax increase by neurologist, Patient tolerating well. #Depression: patient should continue sertraline. Dose just increased, And patient is feeling better. Control at this time. Patient falls with therapy once a week, next appointment is tomorrow. She does have support with her grandmother, but does not have support at home with her mother/sister. Patient does have a history of self-harm rubbing her thumb against a tape dispenser. She declines any suicidal ideations now. She does have the crisis hotline. Has never been hospitalized. Patient provided with walk-in clinic for psychiatric needs in [place] to use as needed. She should call the office with any questions or concerns. Patient is understanding it is feeling motivated at this time.This conversation was had with patients grandmother in the room as well who is understanding. 11/25/2024: BMI 30.49, weight 151.0 patient admits that Wegovy 2.4 mg is not suppressing her appetite and her hunger cravings is much as Zepbound was. Will see if patient can be approved for Mounjaro potentially 01/06/25: BMI 30, weight 149. Will increase Mounjaro to 7.5 mg subcu weekly. Patient overall tolerating well. She reports mild improvement of her constipation. Patient is current to drink water. Patient needs to find a physical activity that she enjoys, as she reports right now she is only standing on a vibrating plate twice a day. #Depression: Patient states that her citalopram was recently increased due to her increased feelings of depression that revolve around her job at this time. However during our conversation she did receive a phone call that she was approved for her new job offer which she is congratulated for. This will be helpful with patient's feelings of depression. #Hydrocephalus: Patient continues to follow with neurologist #Constipation: Patient currently on Linzess 145 mcg daily I did tell patient to contact her PCP about increasing her Linzess dose, additionally patient's lack of water could be contributing towards patient's lack of bowel movements. I did advise patient to increase her water intake, increase her fiber I did give patient handout on high-fiber foods. Advised patient to move her body to stimulate bowel movements as well. Time spent 30 minutes with greater than 50% on care coordination and patient education. Patient will follow-up in one month for weight management. All patient questions answered in office today. Patient should call the office in the meantime with any questions or concerns. Total time spent wiht patient is 30 minutes , over hald being face to face time. Case discussed with collaborating physician Althea Mooney who reviewed the assessment and plan. Chart, medications, labs, vital signs reviewed. Dictation was accomplished with the use of [employer] voice recognition software, prone to medical misidentifications and grammatical errors. This is unintentional and the practitioner does try to identify and correct these, but some could still be present. Please do not hesitate to contact practitioner for clarification. 11/25/2024 Obesity (ICD-10 - E66.9) Ayde Is a 24-year-old female who presents the office for a weight management follow-up. 12/28 weight 199.2, BMI of 40.23. 01/13 weight 191.3, BMI of 38.63. 02/14 Weight 190.3, BMI 38.43 03/27/2022: weight 187, BMI 37.77 - Topamax increase by a neurologist. Patient joined [employer]. Will continue with lifestyle modifications. 04/24/22: weight 184.7, BMI 37.3- Continues to be pleased with her weight loss with lifestyle modifications. Sertraline just increased by PCP. Topamax increased by neurologist. Patient is doing well, no concerns. Great support from her grandmother. Encouraged to continue lifestyle modificationsWorking on consistency. 06/19/22: weight 186.9, BMI 37.75. The patient is struggling with lifestyle modifications. States that her school has been causing her much stress that she has not been able to focus on diet/exercise. Received [facility] today. Will focus on planning her foods for the next four weeks, and consider weight loss medications in the future. Patient educated with history of hydrocephalus, that she will not qualify for phentermine due to cardiac risk factor/ /elevation in blood pressure. She's in the process of talking to neurology about potentially increasing Topamax. Following with therapy regularly. 07/17/22 Weight 184.5 BMI 37.26 Patient lost 2lbs with lifestyle changes will submit patient for Wegovy 0.25mg subq weekly 09/05/22: BMI 37 Weight 184. Awaiting Saxenda. 11/28/22: BMI 38 Weight 191. Discussed importance of taking care of whole self. Recommended looking for a therapist on [employer]. Discused talking to PCP about changing or adding on Rexulti or Vrylar. Discussed compounded semaglutide cost, side effects. Agreeable to in office semaglutide. Sema 0.25 mg subcu administered. Pt warned of s/e, as well as importnace of adequate water/protein intake. 01/09/23: BMI 38 weight 189. Increase to Semaglutide 0.5 compounded. Increase water intake, daily Miralax. Consider Zepbound when available for affordability. 03/19/23: BMI 37, Weght 183. 6lb down, will send for Wegovy 1.7 mg subcu weekly. Discussed admisnistartion/storag e 07/12/23: BMI 35, Weight 172. Continue Wegovy 1.7 mg subcu weekly. 08/27/23: BMI 34, Weight 170. Patient reports that she has had increased fast food intake, and has limited exercise. She also had COVID 1 week ago. She denies any nausea or vomiting. She does report some heartburn with eating spicy or greasy foods. She also endorses mild diarrhea with fast food. Patient was encouraged to increase her resistance training and exercise. Patient's water is about 64 ounces, slightly more would be improved. Will increase dose of Wegovy from 1.7 to 2.4 mg. 10/09/23: BMI 33, Weight 165. Body composition scale shows muscle loss. Discussed importance of eating smaller meals, slowing down how quickly she is eating and exercising. 12/24/23: BMI 32, Weight 160 lb. Decrease to Wegovy 1.7 mg subcu weekly. Change to lansoprazole 30 mg po daily. 03/20/24: BMI 31, Weight 156, continue the Wegovy 1.7 mg subcu weekly. Continue exercise. Congratulted on efforts. Lansopraozole working. 05/05/24: BMI 31, Weight 157. Currently plateau'd. Cannot go up to Wegovy 2.4 mg subcu weekly due to GI s/e. Will attempt change to Zepbound 5 mg subcu weekly. Needs to eat smaller meals and increase protein intake. Patient is only doing limited exercise. Discussed need for resistance training with light weights to start at least 2-3 days a week. 06/24/24: BMI 31, Weight 153. Increase to Zepbound 5 mg subcu weekly. Pt tolerating with less constipation. 08/05/24: BMI 31, Weight 154. Has [employer], switched back to Wegovy. Currently on 1.7 mg dose. Tolerating well, snacking more. 09/23/24: BMI 30, Weight 154 lb. Continue Wegovy 2.4 mg . Needs to increase protein. #Patient has a history of hydrocephalus, she should continue following with neurology. She is on Topamax which will help with weight loss.Occipital nerve treatment through paid management on February 22. Topamax increase by neurologist, Patient tolerating well. #Depression: patient should continue sertraline. Dose just increased, And patient is feeling better. Control at this time. Patient falls with therapy once a week, next appointment is tomorrow. She does have support with her grandmother, but does not have support at home with her mother/sister. Patient does have a history of self-harm rubbing her thumb against a tape dispenser. She declines any suicidal ideations now. She does have the crisis hotline. Has never been hospitalized. Patient provided with walk-in clinic for psychiatric needs in [place] to use as needed. She should call the office with any questions or concerns. Patient is understanding it is feeling motivated at this time.This conversation was had with patients grandmother in the room as well who is understanding. 11/25/2024: BMI 30.49, weight 151.0 patient admits that Wegovy 2.4 mg is not suppressing her appetite and her hunger cravings is much as Zepbound was. Will see if patient can be approved for Mounjaro potentially #Depression: Patient states that her citalopram was recently increased due to her increased feelings of depression that revolve around her job at this time. However during our conversation she did receive a phone call that she was approved for her new job offer which she is congratulated for. This will be helpful with patient's feelings of depression. #Hydrocephalus: Patient continues to follow with neurologist #Constipation: Patient currently on Linzess 145 mcg daily I did tell patient to contact her PCP about increasing her Linzess dose, additionally patient's lack of water could be contributing towards patient's lack of bowel movements. I did advise patient to increase her water intake, increase her fiber I did give patient handout on high-fiber foods. Advised patient to move her body to stimulate bowel movements as well. #Hydrocephalus: Patient does follow with neurology, she is doing well on Emgality, states that she recently had her shunt examined and all is well. Time spent 30 minutes with greater than 50% on care coordination and patient education. Patient will follow-up in one month for weight management. All patient questions answered in office today. Patient should call the office in the meantime with any questions or concerns. Total time spent wiht patient is 30 minutes , over hald being face to face time. Case discussed with collaborating physician Althea Mooney who reviewed the assessment and plan. Chart, medications, labs, vital signs reviewed. Dictation was accomplished with the use of Unmetric voice recognition software, prone to medical misidentifications and grammatical errors. This is unintentional and the practitioner does try to identify and correct these, but some could still be present. Please do not hesitate to contact practitioner for clarification. 11/25/2024 Morbid obesity (ICD-10 - E66.01) Electronic Prior Authorization was requested for Zepbound 5 MG/0.5ML Solution. Provider can order medication once approval received. 08/05/2024 Hydrocephalus , unspecified type (ICD-10 - G91.9) Ayde Is a 22-year-old female who presents the office for a weight management follow-up. 12/28 weight 199.2, BMI of 40.23. 01/13 weight 191.3, BMI of 38.63. 02/14 Weight 190.3, BMI 38.43 03/27/2022: weight 187, BMI 37.77 - Topamax increase by a neurologist. Patient joined [employer]. Will continue with lifestyle modifications. 04/24/22: weight 184.7, BMI 37.3- Continues to be pleased with her weight loss with lifestyle modifications. Sertraline just increased by PCP. Topamax increased by neurologist. Patient is doing well, no concerns. Great support from her grandmother. Encouraged to continue lifestyle modificationsWorking on consistency. 06/19/22: weight 186.9, BMI 37.75. The patient is struggling with lifestyle modifications. States that her school has been causing her much stress that she has not been able to focus on diet/exercise. Received [facility] today. Will focus on planning her foods for the next four weeks, and consider weight loss medications in the future. Patient educated with history of hydrocephalus, that she will not qualify for phentermine due to cardiac risk factor/ /elevation in blood pressure. She's in the process of talking to neurology about potentially increasing Topamax. Following with therapy regularly. 07/17/22 Weight 184.5 BMI 37.26 Patient lost 2lbs with lifestyle changes will submit patient for Wegovy 0.25mg subq weekly 09/05/22: BMI 37 Weight 184. Awaiting Saxenda. 11/28/22: BMI 38 Weight 191. Discussed importance of taking care of whole self. Recommended looking for a therapist on [facility]. Discused talking to PCP about changing or adding on Rexulti or Vrylar. Discussed compounded semaglutide cost, side effects. Agreeable to in office semaglutide. Sema 0.25 mg subcu administered. Pt warned of s/e, as well as importnace of adequate water/protein intake. 01/09/23: BMI 38 weight 189. Increase to Semaglutide 0.5 compounded. Increase water intake, daily Miralax. Consider Zepbound when available for affordability. 03/19/23: BMI 37, Weght 183. 6lb down, will send for Wegovy 1.7 mg subcu weekly. Discussed admisnistartion/storag e 07/12/23: BMI 35, Weight 172. Continue Wegovy 1.7 mg subcu weekly. 08/27/23: BMI 34, Weight 170. Patient reports that she has had increased fast food intake, and has limited exercise. She also had COVID 1 week ago. She denies any nausea or vomiting. She does report some heartburn with eating spicy or greasy foods. She also endorses mild diarrhea with fast food. Patient was encouraged to increase her resistance training and exercise. Patient's water is about 64 ounces, slightly more would be improved. Will increase dose of Wegovy from 1.7 to 2.4 mg. 10/09/23: BMI 33, Weight 165. Body composition scale shows muscle loss. Discussed importance of eating smaller meals, slowing down how quickly she is eating and exercising. 12/24/23: BMI 32, Weight 160 lb. Decrease to Wegovy 1.7 mg subcu weekly. Change to lansoprazole 30 mg po daily. 03/20/24: BMI 31, Weight 156, continue the Wegovy 1.7 mg subcu weekly. Continue exercise. Congratulted on efforts. Lansopraozole working. 05/05/24: BMI 31, Weight 157. Currently plateau'd. Cannot go up to Wegovy 2.4 mg subcu weekly due to GI s/e. Will attempt change to Zepbound 5 mg subcu weekly. Needs to eat smaller meals and increase protein intake. Patient is only doing limited exercise. Discussed need for resistance training with light weights to start at least 2-3 days a week. 06/24/24: BMI 31, Weight 153. Increase to Zepbound 5 mg subcu weekly. Pt tolerating with less constipation. 08/05/24: BMI 31, Weight 154. Has [employer], switched back to Wegovy. Currently on 1.7 mg dose. Tolerating well, snacking more. #Patient has a history of hydrocephalus, she should continue following with neurology. She is on Topamax which will help with weight loss.Occipital nerve treatment through paid management on February 22. Topamax increase by neurologist, Patient tolerating well. #Depression: patient should continue sertraline. Dose just increased, And patient is feeling better. Control at this time. Patient falls with therapy once a week, next appointment is tomorrow. She does have support with her grandmother, but does not have support at home with her mother/sister. Patient does have a history of self-harm rubbing her thumb against a tape dispenser. She declines any suicidal ideations now. She does have the crisis hotline. Has never been hospitalized. Patient provided with walk-in clinic for psychiatric needs in [place] to use as needed. She should call the office with any questions or concerns. Patient is understanding it is feeling motivated at this time.This conversation was had with patients grandmother in the room as well who is understanding. 01/31/2024: BMI 31.83, weight 157.63. Continue Wegovy 1.7 mg, patient states that she is intermittently constipated has a bowel movement every 2 days. She is continuing with MiraLAX and Colace at this time, states that her PCP and neurologist are aware that she is on Wegovy 1.7 and is intermittently constipated. Patient encouraged to drink more water as this may help with constipation, she is dehydrated upon SE[employer] scale today. Patient did bring with her a bag of her disposable pen needles from [employer] to dispose in office today. #Hydrocephalus: Patient does follow with neurology, she is doing well on Emgality, states that she recently had her shunt examined and all is well. Time spent 30 minutes with greater than 50% on care coordination and patient education. Patient will follow-up in one month for weight management. All patient questions answered in office today. Patient should call the office in the meantime with any questions or concerns. Total time spent wiht patient is 30 minutes , over hald being face to face time. Case discussed with collaborating physician Althea Mooney who reviewed the assessment and plan. Chart, medications, labs, vital signs reviewed. Dictation was accomplished with the use of Unmetric voice recognition software, prone to medical misidentifications and grammatical errors. This is unintentional and the practitioner does try to identify and correct these, but some could still be present. Please do not hesitate to contact practitioner for clarification. 09/23/2024 Hydrocephalus , unspecified type (ICD-10 - G91.9) Ayde Is a 22-year-old female who presents the office for a weight management follow-up. 12/28 weight 199.2, BMI of 40.23. 01/13 weight 191.3, BMI of 38.63. 02/14 Weight 190.3, BMI 38.43 03/27/2022: weight 187, BMI 37.77 - Topamax increase by a neurologist. Patient joined [employer]. Will continue with lifestyle modifications. 04/24/22: weight 184.7, BMI 37.3- Continues to be pleased with her weight loss with lifestyle modifications. Sertraline just increased by PCP. Topamax increased by neurologist. Patient is doing well, no concerns. Great support from her grandmother. Encouraged to continue lifestyle modificationsWorking on consistency. 06/19/22: weight 186.9, BMI 37.75. The patient is struggling with lifestyle modifications. States that her school has been causing her much stress that she has not been able to focus on diet/exercise. Received [facility] today. Will focus on planning her foods for the next four weeks, and consider weight loss medications in the future. Patient educated with history of hydrocephalus, that she will not qualify for phentermine due to cardiac risk factor/ /elevation in blood pressure. She's in the process of talking to neurology about potentially increasing Topamax. Following with therapy regularly. 07/17/22 Weight 184.5 BMI 37.26 Patient lost 2lbs with lifestyle changes will submit patient for Wegovy 0.25mg subq weekly 09/05/22: BMI 37 Weight 184. Awaiting Saxenda. 11/28/22: BMI 38 Weight 191. Discussed importance of taking care of whole self. Recommended looking for a therapist on [facility]. Discused talking to PCP about changing or adding on Rexulti or Vrylar. Discussed compounded semaglutide cost, side effects. Agreeable to in office semaglutide. Sema 0.25 mg subcu administered. Pt warned of s/e, as well as importnace of adequate water/protein intake. 01/09/23: BMI 38 weight 189. Increase to Semaglutide 0.5 compounded. Increase water intake, daily Miralax. Consider Zepbound when available for affordability. 03/19/23: BMI 37, Weght 183. 6lb down, will send for Wegovy 1.7 mg subcu weekly. Discussed admisnistartion/storag e 07/12/23: BMI 35, Weight 172. Continue Wegovy 1.7 mg subcu weekly. 08/27/23: BMI 34, Weight 170. Patient reports that she has had increased fast food intake, and has limited exercise. She also had COVID 1 week ago. She denies any nausea or vomiting. She does report some heartburn with eating spicy or greasy foods. She also endorses mild diarrhea with fast food. Patient was encouraged to increase her resistance training and exercise. Patient's water is about 64 ounces, slightly more would be improved. Will increase dose of Wegovy from 1.7 to 2.4 mg. 10/09/23: BMI 33, Weight 165. Body composition scale shows muscle loss. Discussed importance of eating smaller meals, slowing down how quickly she is eating and exercising. 12/24/23: BMI 32, Weight 160 lb. Decrease to Wegovy 1.7 mg subcu weekly. Change to lansoprazole 30 mg po daily. 03/20/24: BMI 31, Weight 156, continue the Wegovy 1.7 mg subcu weekly. Continue exercise. Congratulted on efforts. Lansopraozole working. 05/05/24: BMI 31, Weight 157. Currently plateau'd. Cannot go up to Wegovy 2.4 mg subcu weekly due to GI s/e. Will attempt change to Zepbound 5 mg subcu weekly. Needs to eat smaller meals and increase protein intake. Patient is only doing limited exercise. Discussed need for resistance training with light weights to start at least 2-3 days a week. 06/24/24: BMI 31, Weight 153. Increase to Zepbound 5 mg subcu weekly. Pt tolerating with less constipation. 08/05/24: BMI 31, Weight 154. Has [employer], switched back to Wegovy. Currently on 1.7 mg dose. Tolerating well, snacking more. 09/23/24: BMI 30, Weight 154 lb. Continue Wegovy 2.4 mg . Needs to increase protein. #Patient has a history of hydrocephalus, she should continue following with neurology. She is on Topamax which will help with weight loss.Occipital nerve treatment through paid management on February 22. Topamax increase by neurologist, Patient tolerating well. #Depression: patient should continue sertraline. Dose just increased, And patient is feeling better. Control at this time. Patient falls with therapy once a week, next appointment is tomorrow. She does have support with her grandmother, but does not have support at home with her mother/sister. Patient does have a history of self-harm rubbing her thumb against a tape dispenser. She declines any suicidal ideations now. She does have the crisis hotline. Has never been hospitalized. Patient provided with walk-in clinic for psychiatric needs in [place] to use as needed. She should call the office with any questions or concerns. Patient is understanding it is feeling motivated at this time.This conversation was had with patients grandmother in the room as well who is understanding. #Hydrocephalus: Patient does follow with neurology, she is doing well on Emgality, states that she recently had her shunt examined and all is well. Time spent 30 minutes with greater than 50% on care coordination and patient education. Patient will follow-up in one month for weight management. All patient questions answered in office today. Patient should call the office in the meantime with any questions or concerns. Total time spent wiht patient is 30 minutes , over hald being face to face time. Case discussed with collaborating physician Althea Mooney who reviewed the assessment and plan. Chart, medications, labs, vital signs reviewed. Dictation was accomplished with the use of Un[employer] voice recognition software, prone to medical misidentifications and grammatical errors. This is unintentional and the practitioner does try to identify and correct these, but some could still be present. Please do not hesitate to contact practitioner for clarification. 05/05/2024 Hydrocephalus , unspecified type (ICD-10 - G91.9) Ayde Is a 22-year-old female who presents the office for a weight management follow-up. 12/28 weight 199.2, BMI of 40.23. 01/13 weight 191.3, BMI of 38.63. 02/14 Weight 190.3, BMI 38.43 03/27/2022: weight 187, BMI 37.77 - Topamax increase by a neurologist. Patient joined [employer]. Will continue with lifestyle modifications. 04/24/22: weight 184.7, BMI 37.3- Continues to be pleased with her weight loss with lifestyle modifications. Sertraline just increased by PCP. Topamax increased by neurologist. Patient is doing well, no concerns. Great support from her grandmother. Encouraged to continue lifestyle modificationsWorking on consistency. 06/19/22: weight 186.9, BMI 37.75. The patient is struggling with lifestyle modifications. States that her school has been causing her much stress that she has not been able to focus on diet/exercise. Received [facility] today. Will focus on planning her foods for the next four weeks, and consider weight loss medications in the future. Patient educated with history of hydrocephalus, that she will not qualify for phentermine due to cardiac risk factor/ /elevation in blood pressure. She's in the process of talking to neurology about potentially increasing Topamax. Following with therapy regularly. 07/17/22 Weight 184.5 BMI 37.26 Patient lost 2lbs with lifestyle changes will submit patient for Wegovy 0.25mg subq weekly 09/05/22: BMI 37 Weight 184. Awaiting Saxenda. 11/28/22: BMI 38 Weight 191. Discussed importance of taking care of whole self. Recommended looking for a therapist on [facility]. Discused talking to PCP about changing or adding on Rexulti or Vrylar. Discussed compounded semaglutide cost, side effects. Agreeable to in office semaglutide. Sema 0.25 mg subcu administered. Pt warned of s/e, as well as importnace of adequate water/protein intake. 01/09/23: BMI 38 weight 189. Increase to Semaglutide 0.5 compounded. Increase water intake, daily Miralax. Consider Zepbound when available for affordability. 03/19/23: BMI 37, Weght 183. 6lb down, will send for Wegovy 1.7 mg subcu weekly. Discussed admisnistartion/storag e 07/12/23: BMI 35, Weight 172. Continue Wegovy 1.7 mg subcu weekly. 08/27/23: BMI 34, Weight 170. Patient reports that she has had increased fast food intake, and has limited exercise. She also had COVID 1 week ago. She denies any nausea or vomiting. She does report some heartburn with eating spicy or greasy foods. She also endorses mild diarrhea with fast food. Patient was encouraged to increase her resistance training and exercise. Patient's water is about 64 ounces, slightly more would be improved. Will increase dose of Wegovy from 1.7 to 2.4 mg. 10/09/23: BMI 33, Weight 165. Body composition scale shows muscle loss. Discussed importance of eating smaller meals, slowing down how quickly she is eating and exercising. 12/24/23: BMI 32, Weight 160 lb. Decrease to Wegovy 1.7 mg subcu weekly. Change to lansoprazole 30 mg po daily. 03/20/24: BMI 31, Weight 156, continue the Wegovy 1.7 mg subcu weekly. Continue exercise. Congratulted on efforts. Lansopraozole working. 05/05/24: BMI 31, Weight 157. Currently plateau'd. Cannot go up to Wegovy 2.4 mg subcu weekly due to GI s/e. Will attempt change to Zepbound 5 mg subcu weekly. Needs to eat smaller meals and increase protein intake. Patient is only doing limited exercise. Discussed need for resistance training with light weights to start at least 2-3 days a week. #Patient has a history of hydrocephalus, she should continue following with neurology. She is on Topamax which will help with weight loss.Occipital nerve treatment through paid management on February 22. Topamax increase by neurologist, Patient tolerating well. #Depression: patient should continue sertraline. Dose just increased, And patient is feeling better. Control at this time. Patient falls with therapy once a week, next appointment is tomorrow. She does have support with her grandmother, but does not have support at home with her mother/sister. Patient does have a history of self-harm rubbing her thumb against a tape dispenser. She declines any suicidal ideations now. She does have the crisis hotline. Has never been hospitalized. Patient provided with walk-in clinic for psychiatric needs in [place] to use as needed. She should call the office with any questions or concerns. Patient is understanding it is feeling motivated at this time.This conversation was had with patients grandmother in the room as well who is understanding. 01/31/2024: BMI 31.83, weight 157.63. Continue Wegovy 1.7 mg, patient states that she is intermittently constipated has a bowel movement every 2 days. She is continuing with MiraLAX and Colace at this time, states that her PCP and neurologist are aware that she is on Wegovy 1.7 and is intermittently constipated. Patient encouraged to drink more water as this may help with constipation, she is dehydrated upon [facility] scale today. Patient did bring with her a bag of her disposable pen needles from [employer] to dispose in office today. #Hydrocephalus: Patient does follow with neurology, she is doing well on Emgality, states that she recently had her shunt examined and all is well. Time spent 30 minutes with greater than 50% on care coordination and patient education. Patient will follow-up in one month for weight management. All patient questions answered in office today. Patient should call the office in the meantime with any questions or concerns. Total time spent wiht patient is 30 minutes , over hald being face to face time. Case discussed with collaborating physician Althea Mooney who reviewed the assessment and plan. Chart, medications, labs, vital signs reviewed. Dictation was accomplished with the use of [employer] voice recognition software, prone to medical misidentifications and grammatical errors. This is unintentional and the practitioner does try to identify and correct these, but some could still be present. Please do not hesitate to contact practitioner for clarification. 06/24/2024 Hydrocephalus , unspecified type (ICD-10 - G91.9) Ayde Is a 22-year-old female who presents the office for a weight management follow-up. 12/28 weight 199.2, BMI of 40.23. 01/13 weight 191.3, BMI of 38.63. 02/14 Weight 190.3, BMI 38.43 03/27/2022: weight 187, BMI 37.77 - Topamax increase by a neurologist. Patient joined [employer]. Will continue with lifestyle modifications. 04/24/22: weight 184.7, BMI 37.3- Continues to be pleased with her weight loss with lifestyle modifications. Sertraline just increased by PCP. Topamax increased by neurologist. Patient is doing well, no concerns. Great support from her grandmother. Encouraged to continue lifestyle modificationsWorking on consistency. 06/19/22: weight 186.9, BMI 37.75. The patient is struggling with lifestyle modifications. States that her school has been causing her much stress that she has not been able to focus on diet/exercise. Received [facility] today. Will focus on planning her foods for the next four weeks, and consider weight loss medications in the future. Patient educated with history of hydrocephalus, that she will not qualify for phentermine due to cardiac risk factor/ /elevation in blood pressure. She's in the process of talking to neurology about potentially increasing Topamax. Following with therapy regularly. 07/17/22 Weight 184.5 BMI 37.26 Patient lost 2lbs with lifestyle changes will submit patient for Wegovy 0.25mg subq weekly 09/05/22: BMI 37 Weight 184. Awaiting Saxenda. 11/28/22: BMI 38 Weight 191. Discussed importance of taking care of whole self. Recommended looking for a therapist on [employer] [facility]. Discused talking to PCP about changing or adding on Rexulti or Vrylar. Discussed compounded semaglutide cost, side effects. Agreeable to in office semaglutide. Sema 0.25 mg subcu administered. Pt warned of s/e, as well as importnace of adequate water/protein intake. 01/09/23: BMI 38 weight 189. Increase to Semaglutide 0.5 compounded. Increase water intake, daily Miralax. Consider Zepbound when available for affordability. 03/19/23: BMI 37, Weght 183. 6lb down, will send for Wegovy 1.7 mg subcu weekly. Discussed admisnistartion/storag e 07/12/23: BMI 35, Weight 172. Continue Wegovy 1.7 mg subcu weekly. 08/27/23: BMI 34, Weight 170. Patient reports that she has had increased fast food intake, and has limited exercise. She also had COVID 1 week ago. She denies any nausea or vomiting. She does report some heartburn with eating spicy or greasy foods. She also endorses mild diarrhea with fast food. Patient was encouraged to increase her resistance training and exercise. Patient's water is about 64 ounces, slightly more would be improved. Will increase dose of Wegovy from 1.7 to 2.4 mg. 10/09/23: BMI 33, Weight 165. Body composition scale shows muscle loss. Discussed importance of eating smaller meals, slowing down how quickly she is eating and exercising. 12/24/23: BMI 32, Weight 160 lb. Decrease to Wegovy 1.7 mg subcu weekly. Change to lansoprazole 30 mg po daily. 03/20/24: BMI 31, Weight 156, continue the Wegovy 1.7 mg subcu weekly. Continue exercise. Congratulted on efforts. Lansopraozole working. 05/05/24: BMI 31, Weight 157. Currently plateau'd. Cannot go up to Wegovy 2.4 mg subcu weekly due to GI s/e. Will attempt change to Zepbound 5 mg subcu weekly. Needs to eat smaller meals and increase protein intake. Patient is only doing limited exercise. Discussed need for resistance training with light weights to start at least 2-3 days a week. 06/24/24: BMI 31, Weight 153. Increase to Zepbound 5 mg subcu weekly. Pt tolerating with less constipation. #Patient has a history of hydrocephalus, she should continue following with neurology. She is on Topamax which will help with weight loss.Occipital nerve treatment through paid management on February 22. Topamax increase by neurologist, Patient tolerating well. #Depression: patient should continue sertraline. Dose just increased, And patient is feeling better. Control at this time. Patient falls with therapy once a week, next appointment is tomorrow. She does have support with her grandmother, but does not have support at home with her mother/sister. Patient does have a history of self-harm rubbing her thumb against a tape dispenser. She declines any suicidal ideations now. She does have the crisis hotline. Has never been hospitalized. Patient provided with walk-in clinic for psychiatric needs in [place] to use as needed. She should call the office with any questions or concerns. Patient is understanding it is feeling motivated at this time.This conversation was had with patients grandmother in the room as well who is understanding. 01/31/2024: BMI 31.83, weight 157.63. Continue Wegovy 1.7 mg, patient states that she is intermittently constipated has a bowel movement every 2 days. She is continuing with MiraLAX and Colace at this time, states that her PCP and neurologist are aware that she is on Wegovy 1.7 and is intermittently constipated. Patient encouraged to drink more water as this may help with constipation, she is dehydrated upon [employer] scale today. Patient did bring with her a bag of her disposable pen needles from [employer] to dispose in office today. #Hydrocephalus: Patient does follow with neurology, she is doing well on Emgality, states that she recently had her shunt examined and all is well. Time spent 30 minutes with greater than 50% on care coordination and patient education. Patient will follow-up in one month for weight management. All patient questions answered in office today. Patient should call the office in the meantime with any questions or concerns. Total time spent wiht patient is 30 minutes , over hald being face to face time. Case discussed with collaborating physician Althea Mooney who reviewed the assessment and plan. Chart, medications, labs, vital signs reviewed. Dictation was accomplished with the use of [employer] voice recognition software, prone to medical misidentifications and grammatical errors. This is unintentional and the practitioner does try to identify and correct these, but some could still be present. Please do not hesitate to contact practitioner for clarification. 03/20/2024 Hydrocephalus , unspecified type (ICD-10 - G91.9) Ayde Is a 22-year-old female who presents the office for a weight management follow-up. 12/28 weight 199.2, BMI of 40.23. 01/13 weight 191.3, BMI of 38.63. 02/14 Weight 190.3, BMI 38.43 03/27/2022: weight 187, BMI 37.77 - Topamax increase by a neurologist. Patient joined [employer]. Will continue with lifestyle modifications. 04/24/22: weight 184.7, BMI 37.3- Continues to be pleased with her weight loss with lifestyle modifications. Sertraline just increased by PCP. Topamax increased by neurologist. Patient is doing well, no concerns. Great support from her grandmother. Encouraged to continue lifestyle modificationsWorking on consistency. 06/19/22: weight 186.9, BMI 37.75. The patient is struggling with lifestyle modifications. States that her school has been causing her much stress that she has not been able to focus on diet/exercise. Received [facility] today. Will focus on planning her foods for the next four weeks, and consider weight loss medications in the future. Patient educated with history of hydrocephalus, that she will not qualify for phentermine due to cardiac risk factor/ /elevation in blood pressure. She's in the process of talking to neurology about potentially increasing Topamax. Following with therapy regularly. 07/17/22 Weight 184.5 BMI 37.26 Patient lost 2lbs with lifestyle changes will submit patient for [employer] 0.25mg subq weekly 09/05/22: BMI 37 Weight 184. Awaiting Saxenda. 11/28/22: BMI 38 Weight 191. Discussed importance of taking care of whole self. Recommended looking for a therapist on [employer]. Discused talking to PCP about changing or adding on Rexulti or Vrylar. Discussed compounded semaglutide cost, side effects. Agreeable to in office semaglutide. Sema 0.25 mg subcu administered. Pt warned of s/e, as well as importnace of adequate water/protein intake. 01/09/23: BMI 38 weight 189. Increase to Semaglutide 0.5 compounded. Increase water intake, daily Miralax. Consider Zepbound when available for affordability. 03/19/23: BMI 37, Weght 183. 6lb down, will send for Wegovy 1.7 mg subcu weekly. Discussed admisnistartion/storag e 07/12/23: BMI 35, Weight 172. Continue Wegovy 1.7 mg subcu weekly. 08/27/23: BMI 34, Weight 170. Patient reports that she has had increased fast food intake, and has limited exercise. She also had COVID 1 week ago. She denies any nausea or vomiting. She does report some heartburn with eating spicy or greasy foods. She also endorses mild diarrhea with fast food. Patient was encouraged to increase her resistance training and exercise. Patient's water is about 64 ounces, slightly more would be improved. Will increase dose of Wegovy from 1.7 to 2.4 mg. 10/09/23: BMI 33, Weight 165. Body composition scale shows muscle loss. Discussed importance of eating smaller meals, slowing down how quickly she is eating and exercising. 12/24/23: BMI 32, Weight 160 lb. Decrease to Wegovy 1.7 mg subcu weekly. Change to lansoprazole 30 mg po daily. 03/20/24: BMI 31, Weight 156, continue the Wegovy 1.7 mg subcu weekly. Continue exercise. Congratulted on efforts. Lansopraozole working. #Patient has a history of hydrocephalus, she should continue following with neurology. She is on Topamax which will help with weight loss.Occipital nerve treatment through paid management on February 22. Topamax increase by neurologist, Patient tolerating well. #Depression: patient should continue sertraline. Dose just increased, And patient is feeling better. Control at this time. Patient falls with therapy once a week, next appointment is tomorrow. She does have support with her grandmother, but does not have support at home with her mother/sister. Patient does have a history of self-harm rubbing her thumb against a tape dispenser. She declines any suicidal ideations now. She does have the crisis hotline. Has never been hospitalized. Patient provided with walk-in clinic for psychiatric needs in [place] to use as needed. She should call the office with any questions or concerns. Patient is understanding it is feeling motivated at this time.This conversation was had with patients grandmother in the room as well who is understanding. 01/31/2024: BMI 31.83, weight 157.63. Continue Wegovy 1.7 mg, patient states that she is intermittently constipated has a bowel movement every 2 days. She is continuing with MiraLAX and Colace at this time, states that her PCP and neurologist are aware that she is on Wegovy 1.7 and is intermittently constipated. Patient encouraged to drink more water as this may help with constipation, she is dehydrated upon SE[employer] scale today. Patient did bring with her a bag of her disposable pen needles from [employer] to dispose in office today. #Hydrocephalus: Patient does follow with neurology, she is doing well on Emgality, states that she recently had her shunt examined and all is well. Time spent 30 minutes with greater than 50% on care coordination and patient education. Patient will follow-up in one month for weight management. All patient questions answered in office today. Patient should call the office in the meantime with any questions or concerns. Total time spent wiht patient is 30 minutes , over hald being face to face time. Case discussed with collaborating physician Althea Mooney who reviewed the assessment and plan. Chart, medications, labs, vital signs reviewed. Dictation was accomplished with the use of [employer] voice recognition software, prone to medical misidentifications and grammatical errors. This is unintentional and the practitioner does try to identify and correct these, but some could still be present. Please do not hesitate to contact practitioner for clarification. 03/20/2024 Obesity (ICD-10 - E66.9) Ayde Is a 22-year-old female who presents the office for a weight management follow-up. 12/28 weight 199.2, BMI of 40.23. 01/13 weight 191.3, BMI of 38.63. 02/14 Weight 190.3, BMI 38.43 03/27/2022: weight 187, BMI 37.77 - Topamax increase by a neurologist. Patient joined [employer]. Will continue with lifestyle modifications. 04/24/22: weight 184.7, BMI 37.3- Continues to be pleased with her weight loss with lifestyle modifications. Sertraline just increased by PCP. Topamax increased by neurologist. Patient is doing well, no concerns. Great support from her grandmother. Encouraged to continue lifestyle modificationsWorking on consistency. 06/19/22: weight 186.9, BMI 37.75. The patient is struggling with lifestyle modifications. States that her school has been causing her much stress that she has not been able to focus on diet/exercise. Received [facility] today. Will focus on planning her foods for the next four weeks, and consider weight loss medications in the future. Patient educated with history of hydrocephalus, that she will not qualify for phentermine due to cardiac risk factor/ /elevation in blood pressure. She's in the process of talking to neurology about potentially increasing Topamax. Following with therapy regularly. 07/17/22 Weight 184.5 BMI 37.26 Patient lost 2lbs with lifestyle changes will submit patient for [employer]y 0.25mg subq weekly 09/05/22: BMI 37 Weight 184. Awaiting Saxenda. 11/28/22: BMI 38 Weight 191. Discussed importance of taking care of whole self. Recommended looking for a therapist on [employer]. Discused talking to PCP about changing or adding on Rexulti or Vrylar. Discussed compounded semaglutide cost, side effects. Agreeable to in office semaglutide. Sema 0.25 mg subcu administered. Pt warned of s/e, as well as importnace of adequate water/protein intake. 01/09/23: BMI 38 weight 189. Increase to Semaglutide 0.5 compounded. Increase water intake, daily Miralax. Consider Zepbound when available for affordability. 03/19/23: BMI 37, Weght 183. 6lb down, will send for Wegovy 1.7 mg subcu weekly. Discussed admisnistartion/storag e 07/12/23: BMI 35, Weight 172. Continue Wegovy 1.7 mg subcu weekly. 08/27/23: BMI 34, Weight 170. Patient reports that she has had increased fast food intake, and has limited exercise. She also had COVID 1 week ago. She denies any nausea or vomiting. She does report some heartburn with eating spicy or greasy foods. She also endorses mild diarrhea with fast food. Patient was encouraged to increase her resistance training and exercise. Patient's water is about 64 ounces, slightly more would be improved. Will increase dose of Wegovy from 1.7 to 2.4 mg. 10/09/23: BMI 33, Weight 165. Body composition scale shows muscle loss. Discussed importance of eating smaller meals, slowing down how quickly she is eating and exercising. 12/24/23: BMI 32, Weight 160 lb. Decrease to Wegovy 1.7 mg subcu weekly. Change to lansoprazole 30 mg po daily. 03/20/24: BMI 31, Weight 156, continue the Wegovy 1.7 mg subcu weekly. Continue exercise. Congratulted on efforts. Lansopraozole working. #Patient has a history of hydrocephalus, she should continue following with neurology. She is on Topamax which will help with weight loss.Occipital nerve treatment through paid management on February 22. Topamax increase by neurologist, Patient tolerating well. #Depression: patient should continue sertraline. Dose just increased, And patient is feeling better. Control at this time. Patient falls with therapy once a week, next appointment is tomorrow. She does have support with her grandmother, but does not have support at home with her mother/sister. Patient does have a history of self-harm rubbing her thumb against a tape dispenser. She declines any suicidal ideations now. She does have the crisis hotline. Has never been hospitalized. Patient provided with walk-in clinic for psychiatric needs in [place] to use as needed. She should call the office with any questions or concerns. Patient is understanding it is feeling motivated at this time.This conversation was had with patients grandmother in the room as well who is understanding. 01/31/2024: BMI 31.83, weight 157.63. Continue Wegovy 1.7 mg, patient states that she is intermittently constipated has a bowel movement every 2 days. She is continuing with MiraLAX and Colace at this time, states that her PCP and neurologist are aware that she is on Wegovy 1.7 and is intermittently constipated. Patient encouraged to drink more water as this may help with constipation, she is dehydrated upon [employer] scale today. Patient did bring with her a bag of her disposable pen needles from [employer] to dispose in office today. #Hydrocephalus: Patient does follow with neurology, she is doing well on Emgality, states that she recently had her shunt examined and all is well. Time spent 30 minutes with greater than 50% on care coordination and patient education. Patient will follow-up in one month for weight management. All patient questions answered in office today. Patient should call the office in the meantime with any questions or concerns. Total time spent wiht patient is 30 minutes , over hald being face to face time. Case discussed with collaborating physician Althea Mooney who reviewed the assessment and plan. Chart, medications, labs, vital signs reviewed. Dictation was accomplished with the use of [employer] voice recognition software, prone to medical misidentifications and grammatical errors. This is unintentional and the practitioner does try to identify and correct these, but some could still be present. Please do not hesitate to contact practitioner for clarification. 03/20/2024 Depression, unspecified (ICD-10 - F32.A) Ayde Is a 22-year-old female who presents the office for a weight management follow-up. 12/28 weight 199.2, BMI of 40.23. 01/13 weight 191.3, BMI of 38.63. 02/14 Weight 190.3, BMI 38.43 03/27/2022: weight 187, BMI 37.77 - Topamax increase by a neurologist. Patient joined [employer]. Will continue with lifestyle modifications. 04/24/22: weight 184.7, BMI 37.3- Continues to be pleased with her weight loss with lifestyle modifications. Sertraline just increased by PCP. Topamax increased by neurologist. Patient is doing well, no concerns. Great support from her grandmother. Encouraged to continue lifestyle modificationsWorking on consistency. 06/19/22: weight 186.9, BMI 37.75. The patient is struggling with lifestyle modifications. States that her school has been causing her much stress that she has not been able to focus on diet/exercise. Received [facility] today. Will focus on planning her foods for the next four weeks, and consider weight loss medications in the future. Patient educated with history of hydrocephalus, that she will not qualify for phentermine due to cardiac risk factor/ /elevation in blood pressure. She's in the process of talking to neurology about potentially increasing Topamax. Following with therapy regularly. 07/17/22 Weight 184.5 BMI 37.26 Patient lost 2lbs with lifestyle changes will submit patient for Wegovy 0.25mg subq weekly 09/05/22: BMI 37 Weight 184. Awaiting Saxenda. 11/28/22: BMI 38 Weight 191. Discussed importance of taking care of whole self. Recommended looking for a therapist on [employer]. Discused talking to PCP about changing or adding on Rexulti or Vrylar. Discussed compounded semaglutide cost, side effects. Agreeable to in office semaglutide. Sema 0.25 mg subcu administered. Pt warned of s/e, as well as importnace of adequate water/protein intake. 01/09/23: BMI 38 weight 189. Increase to Semaglutide 0.5 compounded. Increase water intake, daily Miralax. Consider Zepbound when available for affordability. 03/19/23: BMI 37, Weght 183. 6lb down, will send for Wegovy 1.7 mg subcu weekly. Discussed admisnistartion/storag e 07/12/23: BMI 35, Weight 172. Continue Wegovy 1.7 mg subcu weekly. 08/27/23: BMI 34, Weight 170. Patient reports that she has had increased fast food intake, and has limited exercise. She also had COVID 1 week ago. She denies any nausea or vomiting. She does report some heartburn with eating spicy or greasy foods. She also endorses mild diarrhea with fast food. Patient was encouraged to increase her resistance training and exercise. Patient's water is about 64 ounces, slightly more would be improved. Will increase dose of Wegovy from 1.7 to 2.4 mg. 10/09/23: BMI 33, Weight 165. Body composition scale shows muscle loss. Discussed importance of eating smaller meals, slowing down how quickly she is eating and exercising. 12/24/23: BMI 32, Weight 160 lb. Decrease to Wegovy 1.7 mg subcu weekly. Change to lansoprazole 30 mg po daily. 03/20/24: BMI 31, Weight 156, continue the Wegovy 1.7 mg subcu weekly. Continue exercise. Congratulted on efforts. Lansopraozole working. #Patient has a history of hydrocephalus, she should continue following with neurology. She is on Topamax which will help with weight loss.Occipital nerve treatment through paid management on February 22. Topamax increase by neurologist, Patient tolerating well. #Depression: patient should continue sertraline. Dose just increased, And patient is feeling better. Control at this time. Patient falls with therapy once a week, next appointment is tomorrow. She does have support with her grandmother, but does not have support at home with her mother/sister. Patient does have a history of self-harm rubbing her thumb against a tape dispenser. She declines any suicidal ideations now. She does have the crisis hotline. Has never been hospitalized. Patient provided with walk-in clinic for psychiatric needs in [place] to use as needed. She should call the office with any questions or concerns. Patient is understanding it is feeling motivated at this time.This conversation was had with patients grandmother in the room as well who is understanding. 01/31/2024: BMI 31.83, weight 157.63. Continue Wegovy 1.7 mg, patient states that she is intermittently constipated has a bowel movement every 2 days. She is continuing with MiraLAX and Colace at this time, states that her PCP and neurologist are aware that she is on Wegovy 1.7 and is intermittently constipated. Patient encouraged to drink more water as this may help with constipation, she is dehydrated upon [employer] scale today. Patient did bring with her a bag of her disposable pen needles from [employer] to dispose in office today. #Hydrocephalus: Patient does follow with neurology, she is doing well on Emgality, states that she recently had her shunt examined and all is well. Time spent 30 minutes with greater than 50% on care coordination and patient education. Patient will follow-up in one month for weight management. All patient questions answered in office today. Patient should call the office in the meantime with any questions or concerns. Total time spent wiht patient is 30 minutes , over hald being face to face time. Case discussed with collaborating physician Althea Mooney who reviewed the assessment and plan. Chart, medications, labs, vital signs reviewed. Dictation was accomplished with the use of [employer] voice recognition software, prone to medical misidentifications and grammatical errors. This is unintentional and the practitioner does try to identify and correct these, but some could still be present. Please do not hesitate to contact practitioner for clarification. 05/05/2024 Depression, unspecified (ICD-10 - F32.A) Ayde Is a 22-year-old female who presents the office for a weight management follow-up. 12/28 weight 199.2, BMI of 40.23. 01/13 weight 191.3, BMI of 38.63. 02/14 Weight 190.3, BMI 38.43 03/27/2022: weight 187, BMI 37.77 - Topamax increase by a neurologist. Patient joined [employer]. Will continue with lifestyle modifications. 04/24/22: weight 184.7, BMI 37.3- Continues to be pleased with her weight loss with lifestyle modifications. Sertraline just increased by PCP. Topamax increased by neurologist. Patient is doing well, no concerns. Great support from her grandmother. Encouraged to continue lifestyle modificationsWorking on consistency. 06/19/22: weight 186.9, BMI 37.75. The patient is struggling with lifestyle modifications. States that her school has been causing her much stress that she has not been able to focus on diet/exercise. Received [facility] today. Will focus on planning her foods for the next four weeks, and consider weight loss medications in the future. Patient educated with history of hydrocephalus, that she will not qualify for phentermine due to cardiac risk factor/ /elevation in blood pressure. She's in the process of talking to neurology about potentially increasing Topamax. Following with therapy regularly. 07/17/22 Weight 184.5 BMI 37.26 Patient lost 2lbs with lifestyle changes will submit patient for Wegovy 0.25mg subq weekly 09/05/22: BMI 37 Weight 184. Awaiting Saxenda. 11/28/22: BMI 38 Weight 191. Discussed importance of taking care of whole self. Recommended looking for a therapist on [email or web address]. Discused talking to PCP about changing or adding on Rexulti or Vrylar. Discussed compounded semaglutide cost, side effects. Agreeable to in office semaglutide. Sema 0.25 mg subcu administered. Pt warned of s/e, as well as importnace of adequate water/protein intake. 01/09/23: BMI 38 weight 189. Increase to Semaglutide 0.5 compounded. Increase water intake, daily Miralax. Consider Zepbound when available for affordability. 03/19/23: BMI 37, Weght 183. 6lb down, will send for Wegovy 1.7 mg subcu weekly. Discussed admisnistartion/storag e 07/12/23: BMI 35, Weight 172. Continue Wegovy 1.7 mg subcu weekly. 08/27/23: BMI 34, Weight 170. Patient reports that she has had increased fast food intake, and has limited exercise. She also had COVID 1 week ago. She denies any nausea or vomiting. She does report some heartburn with eating spicy or greasy foods. She also endorses mild diarrhea with fast food. Patient was encouraged to increase her resistance training and exercise. Patient's water is about 64 ounces, slightly more would be improved. Will increase dose of Wegovy from 1.7 to 2.4 mg. 10/09/23: BMI 33, Weight 165. Body composition scale shows muscle loss. Discussed importance of eating smaller meals, slowing down how quickly she is eating and exercising. 12/24/23: BMI 32, Weight 160 lb. Decrease to Wegovy 1.7 mg subcu weekly. Change to lansoprazole 30 mg po daily. 03/20/24: BMI 31, Weight 156, continue the Wegovy 1.7 mg subcu weekly. Continue exercise. Congratulted on efforts. Lansopraozole working. 05/05/24: BMI 31, Weight 157. Currently plateau'd. Cannot go up to Wegovy 2.4 mg subcu weekly due to GI s/e. Will attempt change to Zepbound 5 mg subcu weekly. Needs to eat smaller meals and increase protein intake. Patient is only doing limited exercise. Discussed need for resistance training with light weights to start at least 2-3 days a week. #Patient has a history of hydrocephalus, she should continue following with neurology. She is on Topamax which will help with weight loss.Occipital nerve treatment through paid management on February 22. Topamax increase by neurologist, Patient tolerating well. #Depression: patient should continue sertraline. Dose just increased, And patient is feeling better. Control at this time. Patient falls with therapy once a week, next appointment is tomorrow. She does have support with her grandmother, but does not have support at home with her mother/sister. Patient does have a history of self-harm rubbing her thumb against a tape dispenser. She declines any suicidal ideations now. She does have the crisis hotline. Has never been hospitalized. Patient provided with walk-in clinic for psychiatric needs in [place] to use as needed. She should call the office with any questions or concerns. Patient is understanding it is feeling motivated at this time.This conversation was had with patients grandmother in the room as well who is understanding. 01/31/2024: BMI 31.83, weight 157.63. Continue Wegovy 1.7 mg, patient states that she is intermittently constipated has a bowel movement every 2 days. She is continuing with MiraLAX and Colace at this time, states that her PCP and neurologist are aware that she is on Wegovy 1.7 and is intermittently constipated. Patient encouraged to drink more water as this may help with constipation, she is dehydrated upon SE[employer] scale today. Patient did bring with her a bag of her disposable pen needles from [employer] to dispose in office today. #Hydrocephalus: Patient does follow with neurology, she is doing well on Emgality, states that she recently had her shunt examined and all is well. Time spent 30 minutes with greater than 50% on care coordination and patient education. Patient will follow-up in one month for weight management. All patient questions answered in office today. Patient should call the office in the meantime with any questions or concerns. Total time spent wiht patient is 30 minutes , over hald being face to face time. Case discussed with collaborating physician Althea Mooney who reviewed the assessment and plan. Chart, medications, labs, vital signs reviewed. Dictation was accomplished with the use of [employer] voice recognition software, prone to medical misidentifications and grammatical errors. This is unintentional and the practitioner does try to identify and correct these, but some could still be present. Please do not hesitate to contact practitioner for clarification. 06/24/2024 Depression, unspecified (ICD-10 - F32.A) Ayde Is a 22-year-old female who presents the office for a weight management follow-up. 12/28 weight 199.2, BMI of 40.23. 01/13 weight 191.3, BMI of 38.63. 02/14 Weight 190.3, BMI 38.43 03/27/2022: weight 187, BMI 37.77 - Topamax increase by a neurologist. Patient joined [employer]. Will continue with lifestyle modifications. 04/24/22: weight 184.7, BMI 37.3- Continues to be pleased with her weight loss with lifestyle modifications. Sertraline just increased by PCP. Topamax increased by neurologist. Patient is doing well, no concerns. Great support from her grandmother. Encouraged to continue lifestyle modificationsWorking on consistency. 06/19/22: weight 186.9, BMI 37.75. The patient is struggling with lifestyle modifications. States that her school has been causing her much stress that she has not been able to focus on diet/exercise. Received MIC today. Will focus on planning her foods for the next four weeks, and consider weight loss medications in the future. Patient educated with history of hydrocephalus, that she will not qualify for phentermine due to cardiac risk factor/ /elevation in blood pressure. She's in the process of talking to neurology about potentially increasing Topamax. Following with therapy regularly. 07/17/22 Weight 184.5 BMI 37.26 Patient lost 2lbs with lifestyle changes will submit patient for Wegovy 0.25mg subq weekly 09/05/22: BMI 37 Weight 184. Awaiting Saxenda. 11/28/22: BMI 38 Weight 191. Discussed importance of taking care of whole self. Recommended looking for a therapist on [facility]. Discused talking to PCP about changing or adding on Rexulti or Vrylar. Discussed compounded semaglutide cost, side effects. Agreeable to in office semaglutide. Sema 0.25 mg subcu administered. Pt warned of s/e, as well as importnace of adequate water/protein intake. 01/09/23: BMI 38 weight 189. Increase to Semaglutide 0.5 compounded. Increase water intake, daily Miralax. Consider Zepbound when available for affordability. 03/19/23: BMI 37, Weght 183. 6lb down, will send for Wegovy 1.7 mg subcu weekly. Discussed admisnistartion/storag e 07/12/23: BMI 35, Weight 172. Continue Wegovy 1.7 mg subcu weekly. 08/27/23: BMI 34, Weight 170. Patient reports that she has had increased fast food intake, and has limited exercise. She also had COVID 1 week ago. She denies any nausea or vomiting. She does report some heartburn with eating spicy or greasy foods. She also endorses mild diarrhea with fast food. Patient was encouraged to increase her resistance training and exercise. Patient's water is about 64 ounces, slightly more would be improved. Will increase dose of Wegovy from 1.7 to 2.4 mg. 10/09/23: BMI 33, Weight 165. Body composition scale shows muscle loss. Discussed importance of eating smaller meals, slowing down how quickly she is eating and exercising. 12/24/23: BMI 32, Weight 160 lb. Decrease to Wegovy 1.7 mg subcu weekly. Change to lansoprazole 30 mg po daily. 03/20/24: BMI 31, Weight 156, continue the Wegovy 1.7 mg subcu weekly. Continue exercise. Congratulted on efforts. Lansopraozole working. 05/05/24: BMI 31, Weight 157. Currently plateau'd. Cannot go up to Wegovy 2.4 mg subcu weekly due to GI s/e. Will attempt change to Zepbound 5 mg subcu weekly. Needs to eat smaller meals and increase protein intake. Patient is only doing limited exercise. Discussed need for resistance training with light weights to start at least 2-3 days a week. 06/24/24: BMI 31, Weight 153. Increase to Zepbound 5 mg subcu weekly. Pt tolerating with less constipation. #Patient has a history of hydrocephalus, she should continue following with neurology. She is on Topamax which will help with weight loss.Occipital nerve treatment through [facility] management on February 22. Topamax increase by neurologist, Patient tolerating well. #Depression: patient should continue sertraline. Dose just increased, And patient is feeling better. Control at this time. Patient falls with therapy once a week, next appointment is tomorrow. She does have support with her grandmother, but does not have support at home with her mother/sister. Patient does have a history of self-harm rubbing her thumb against a tape dispenser. She declines any suicidal ideations now. She does have the crisis hotline. Has never been hospitalized. Patient provided with walk-in clinic for psychiatric needs in [place] to use as needed. She should call the office with any questions or concerns. Patient is understanding it is feeling motivated at this time.This conversation was had with patients grandmother in the room as well who is understanding. 01/31/2024: BMI 31.83, weight 157.63. Continue Wegovy 1.7 mg, patient states that she is intermittently constipated has a bowel movement every 2 days. She is continuing with MiraLAX and Colace at this time, states that her PCP and neurologist are aware that she is on Wegovy 1.7 and is intermittently constipated. Patient encouraged to drink more water as this may help with constipation, she is dehydrated upon SECA scale today. Patient did bring with her a bag of her disposable pen needles from Wegovy to dispose in office today. #Hydrocephalus: Patient does follow with neurology, she is doing well on Emgality, states that she recently had her shunt examined and all is well. Time spent 30 minutes with greater than 50% on care coordination and patient education. Patient will follow-up in one month for weight management. All patient questions answered in office today. Patient should call the office in the meantime with any questions or concerns. Total time spent wiht patient is 30 minutes , over hald being face to face time. Case discussed with collaborating physician Althea Mooney who reviewed the assessment and plan. Chart, medications, labs, vital signs reviewed. Dictation was accomplished with the use of Un[employer] voice recognition software, prone to medical misidentifications and grammatical errors. This is unintentional and the practitioner does try to identify and correct these, but some could still be present. Please do not hesitate to contact practitioner for clarification. 08/05/2024 Depression, unspecified (ICD-10 - F32.A) Ayde Is a 22-year-old female who presents the office for a weight management follow-up. 12/28 weight 199.2, BMI of 40.23. 01/13 weight 191.3, BMI of 38.63. 02/14 Weight 190.3, BMI 38.43 03/27/2022: weight 187, BMI 37.77 - Topamax increase by a neurologist. Patient joined [employer]. Will continue with lifestyle modifications. 04/24/22: weight 184.7, BMI 37.3- Continues to be pleased with her weight loss with lifestyle modifications. Sertraline just increased by PCP. Topamax increased by neurologist. Patient is doing well, no concerns. Great support from her grandmother. Encouraged to continue lifestyle modificationsWorking on consistency. 06/19/22: weight 186.9, BMI 37.75. The patient is struggling with lifestyle modifications. States that her school has been causing her much stress that she has not been able to focus on diet/exercise. Received [facility] today. Will focus on planning her foods for the next four weeks, and consider weight loss medications in the future. Patient educated with history of hydrocephalus, that she will not qualify for phentermine due to cardiac risk factor/ /elevation in blood pressure. She's in the process of talking to neurology about potentially increasing Topamax. Following with therapy regularly. 07/17/22 Weight 184.5 BMI 37.26 Patient lost 2lbs with lifestyle changes will submit patient for Wegovy 0.25mg subq weekly 09/05/22: BMI 37 Weight 184. Awaiting Saxenda. 11/28/22: BMI 38 Weight 191. Discussed importance of taking care of whole self. Recommended looking for a therapist on [facility]. Discused talking to PCP about changing or adding on Rexulti or Vrylar. Discussed compounded semaglutide cost, side effects. Agreeable to in office semaglutide. Sema 0.25 mg subcu administered. Pt warned of s/e, as well as importnace of adequate water/protein intake. 01/09/23: BMI 38 weight 189. Increase to Semaglutide 0.5 compounded. Increase water intake, daily Miralax. Consider Zepbound when available for affordability. 03/19/23: BMI 37, Weght 183. 6lb down, will send for Wegovy 1.7 mg subcu weekly. Discussed admisnistartion/storag e 07/12/23: BMI 35, Weight 172. Continue Wegovy 1.7 mg subcu weekly. 08/27/23: BMI 34, Weight 170. Patient reports that she has had increased fast food intake, and has limited exercise. She also had COVID 1 week ago. She denies any nausea or vomiting. She does report some heartburn with eating spicy or greasy foods. She also endorses mild diarrhea with fast food. Patient was encouraged to increase her resistance training and exercise. Patient's water is about 64 ounces, slightly more would be improved. Will increase dose of Wegovy from 1.7 to 2.4 mg. 10/09/23: BMI 33, Weight 165. Body composition scale shows muscle loss. Discussed importance of eating smaller meals, slowing down how quickly she is eating and exercising. 12/24/23: BMI 32, Weight 160 lb. Decrease to Wegovy 1.7 mg subcu weekly. Change to lansoprazole 30 mg po daily. 03/20/24: BMI 31, Weight 156, continue the Wegovy 1.7 mg subcu weekly. Continue exercise. Congratulted on efforts. Lansopraozole working. 05/05/24: BMI 31, Weight 157. Currently plateau'd. Cannot go up to Wegovy 2.4 mg subcu weekly due to GI s/e. Will attempt change to Zepbound 5 mg subcu weekly. Needs to eat smaller meals and increase protein intake. Patient is only doing limited exercise. Discussed need for resistance training with light weights to start at least 2-3 days a week. 06/24/24: BMI 31, Weight 153. Increase to Zepbound 5 mg subcu weekly. Pt tolerating with less constipation. 08/05/24: BMI 31, Weight 154. Has [employer], switched back to Wegovy. Currently on 1.7 mg dose. Tolerating well, snacking more. #Patient has a history of hydrocephalus, she should continue following with neurology. She is on Topamax which will help with weight loss.Occipital nerve treatment through paid management on February 22. Topamax increase by neurologist, Patient tolerating well. #Depression: patient should continue sertraline. Dose just increased, And patient is feeling better. Control at this time. Patient falls with therapy once a week, next appointment is tomorrow. She does have support with her grandmother, but does not have support at home with her mother/sister. Patient does have a history of self-harm rubbing her thumb against a tape dispenser. She declines any suicidal ideations now. She does have the crisis hotline. Has never been hospitalized. Patient provided with walk-in clinic for psychiatric needs in [place] to use as needed. She should call the office with any questions or concerns. Patient is understanding it is feeling motivated at this time.This conversation was had with patients grandmother in the room as well who is understanding. 01/31/2024: BMI 31.83, weight 157.63. Continue Wegovy 1.7 mg, patient states that she is intermittently constipated has a bowel movement every 2 days. She is continuing with MiraLAX and Colace at this time, states that her PCP and neurologist are aware that she is on Wegovy 1.7 and is intermittently constipated. Patient encouraged to drink more water as this may help with constipation, she is dehydrated upon SECA scale today. Patient did bring with her a bag of her disposable pen needles from Wegovy to dispose in office today. #Hydrocephalus: Patient does follow with neurology, she is doing well on Emgality, states that she recently had her shunt examined and all is well. Time spent 30 minutes with greater than 50% on care coordination and patient education. Patient will follow-up in one month for weight management. All patient questions answered in office today. Patient should call the office in the meantime with any questions or concerns. Total time spent wiht patient is 30 minutes , over hald being face to face time. Case discussed with collaborating physician Althea Mooney who reviewed the assessment and plan. Chart, medications, labs, vital signs reviewed. Dictation was accomplished with the use of [employer] voice recognition software, prone to medical misidentifications and grammatical errors. This is unintentional and the practitioner does try to identify and correct these, but some could still be present. Please do not hesitate to contact practitioner for clarification. 09/23/2024 Depression, unspecified (ICD-10 - F32.A) Ayde Is a 22-year-old female who presents the office for a weight management follow-up. 12/28 weight 199.2, BMI of 40.23. 01/13 weight 191.3, BMI of 38.63. 02/14 Weight 190.3, BMI 38.43 03/27/2022: weight 187, BMI 37.77 - Topamax increase by a neurologist. Patient joined [employer]. Will continue with lifestyle modifications. 04/24/22: weight 184.7, BMI 37.3- Continues to be pleased with her weight loss with lifestyle modifications. Sertraline just increased by PCP. Topamax increased by neurologist. Patient is doing well, no concerns. Great support from her grandmother. Encouraged to continue lifestyle modificationsWorking on consistency. 06/19/22: weight 186.9, BMI 37.75. The patient is struggling with lifestyle modifications. States that her school has been causing her much stress that she has not been able to focus on diet/exercise. Received [facility] today. Will focus on planning her foods for the next four weeks, and consider weight loss medications in the future. Patient educated with history of hydrocephalus, that she will not qualify for phentermine due to cardiac risk factor/ /elevation in blood pressure. She's in the process of talking to neurology about potentially increasing Topamax. Following with therapy regularly. 07/17/22 Weight 184.5 BMI 37.26 Patient lost 2lbs with lifestyle changes will submit patient for Wegovy 0.25mg subq weekly 09/05/22: BMI 37 Weight 184. Awaiting Saxenda. 11/28/22: BMI 38 Weight 191. Discussed importance of taking care of whole self. Recommended looking for a therapist on [facility]. Discused talking to PCP about changing or adding on Rexulti or Vrylar. Discussed compounded semaglutide cost, side effects. Agreeable to in office semaglutide. Sema 0.25 mg subcu administered. Pt warned of s/e, as well as importnace of adequate water/protein intake. 01/09/23: BMI 38 weight 189. Increase to Semaglutide 0.5 compounded. Increase water intake, daily Miralax. Consider Zepbound when available for affordability. 03/19/23: BMI 37, Weght 183. 6lb down, will send for Wegovy 1.7 mg subcu weekly. Discussed admisnistartion/storag e 07/12/23: BMI 35, Weight 172. Continue Wegovy 1.7 mg subcu weekly. 08/27/23: BMI 34, Weight 170. Patient reports that she has had increased fast food intake, and has limited exercise. She also had COVID 1 week ago. She denies any nausea or vomiting. She does report some heartburn with eating spicy or greasy foods. She also endorses mild diarrhea with fast food. Patient was encouraged to increase her resistance training and exercise. Patient's water is about 64 ounces, slightly more would be improved. Will increase dose of Wegovy from 1.7 to 2.4 mg. 10/09/23: BMI 33, Weight 165. Body composition scale shows muscle loss. Discussed importance of eating smaller meals, slowing down how quickly she is eating and exercising. 12/24/23: BMI 32, Weight 160 lb. Decrease to Wegovy 1.7 mg subcu weekly. Change to lansoprazole 30 mg po daily. 03/20/24: BMI 31, Weight 156, continue the Wegovy 1.7 mg subcu weekly. Continue exercise. Congratulted on efforts. Lansopraozole working. 05/05/24: BMI 31, Weight 157. Currently plateau'd. Cannot go up to Wegovy 2.4 mg subcu weekly due to GI s/e. Will attempt change to Zepbound 5 mg subcu weekly. Needs to eat smaller meals and increase protein intake. Patient is only doing limited exercise. Discussed need for resistance training with light weights to start at least 2-3 days a week. 06/24/24: BMI 31, Weight 153. Increase to Zepbound 5 mg subcu weekly. Pt tolerating with less constipation. 08/05/24: BMI 31, Weight 154. Has [employer], switched back to Wegovy. Currently on 1.7 mg dose. Tolerating well, snacking more. 09/23/24: BMI 30, Weight 154 lb. Continue Wegovy 2.4 mg . Needs to increase protein. #Patient has a history of hydrocephalus, she should continue following with neurology. She is on Topamax which will help with weight loss.Occipital nerve treatment through paid management on February 22. Topamax increase by neurologist, Patient tolerating well. #Depression: patient should continue sertraline. Dose just increased, And patient is feeling better. Control at this time. Patient falls with therapy once a week, next appointment is tomorrow. She does have support with her grandmother, but does not have support at home with her mother/sister. Patient does have a history of self-harm rubbing her thumb against a tape dispenser. She declines any suicidal ideations now. She does have the crisis hotline. Has never been hospitalized. Patient provided with walk-in clinic for psychiatric needs in [place] to use as needed. She should call the office with any questions or concerns. Patient is understanding it is feeling motivated at this time.This conversation was had with patients grandmother in the room as well who is understanding. #Hydrocephalus: Patient does follow with neurology, she is doing well on Emgality, states that she recently had her shunt examined and all is well. Time spent 30 minutes with greater than 50% on care coordination and patient education. Patient will follow-up in one month for weight management. All patient questions answered in office today. Patient should call the office in the meantime with any questions or concerns. Total time spent wiht patient is 30 minutes , over hald being face to face time. Case discussed with collaborating physician Althea Mooney who reviewed the assessment and plan. Chart, medications, labs, vital signs reviewed. Dictation was accomplished with the use of Un[employer] voice recognition software, prone to medical misidentifications and grammatical errors. This is unintentional and the practitioner does try to identify and correct these, but some could still be present. Please do not hesitate to contact practitioner for clarification. 01/06/2025 Depression, unspecified (ICD-10 - F32.A) Ayde Is a 24-year-old female who presents the office for a weight management follow-up. 12/28 weight 199.2, BMI of 40.23. 01/13 weight 191.3, BMI of 38.63. 02/14 Weight 190.3, BMI 38.43 03/27/2022: weight 187, BMI 37.77 - Topamax increase by a neurologist. Patient joined [employer]. Will continue with lifestyle modifications. 04/24/22: weight 184.7, BMI 37.3- Continues to be pleased with her weight loss with lifestyle modifications. Sertraline just increased by PCP. Topamax increased by neurologist. Patient is doing well, no concerns. Great support from her grandmother. Encouraged to continue lifestyle modificationsWorking on consistency. 06/19/22: weight 186.9, BMI 37.75. The patient is struggling with lifestyle modifications. States that her school has been causing her much stress that she has not been able to focus on diet/exercise. Received [facility] today. Will focus on planning her foods for the next four weeks, and consider weight loss medications in the future. Patient educated with history of hydrocephalus, that she will not qualify for phentermine due to cardiac risk factor/ /elevation in blood pressure. She's in the process of talking to neurology about potentially increasing Topamax. Following with therapy regularly. 07/17/22 Weight 184.5 BMI 37.26 Patient lost 2lbs with lifestyle changes will submit patient for Wegovy 0.25mg subq weekly 09/05/22: BMI 37 Weight 184. Awaiting Saxenda. 11/28/22: BMI 38 Weight 191. Discussed importance of taking care of whole self. Recommended looking for a therapist on [facility]. Discused talking to PCP about changing or adding on Rexulti or Vrylar. Discussed compounded semaglutide cost, side effects. Agreeable to in office semaglutide. Sema 0.25 mg subcu administered. Pt warned of s/e, as well as importnace of adequate water/protein intake. 01/09/23: BMI 38 weight 189. Increase to Semaglutide 0.5 compounded. Increase water intake, daily Miralax. Consider Zepbound when available for affordability. 03/19/23: BMI 37, Weght 183. 6lb down, will send for Wegovy 1.7 mg subcu weekly. Discussed admisnistartion/storag e 07/12/23: BMI 35, Weight 172. Continue Wegovy 1.7 mg subcu weekly. 08/27/23: BMI 34, Weight 170. Patient reports that she has had increased fast food intake, and has limited exercise. She also had COVID 1 week ago. She denies any nausea or vomiting. She does report some heartburn with eating spicy or greasy foods. She also endorses mild diarrhea with fast food. Patient was encouraged to increase her resistance training and exercise. Patient's water is about 64 ounces, slightly more would be improved. Will increase dose of Wegovy from 1.7 to 2.4 mg. 10/09/23: BMI 33, Weight 165. Body composition scale shows muscle loss. Discussed importance of eating smaller meals, slowing down how quickly she is eating and exercising. 12/24/23: BMI 32, Weight 160 lb. Decrease to Wegovy 1.7 mg subcu weekly. Change to lansoprazole 30 mg po daily. 03/20/24: BMI 31, Weight 156, continue the Wegovy 1.7 mg subcu weekly. Continue exercise. Congratulted on efforts. Lansopraozole working. 05/05/24: BMI 31, Weight 157. Currently plateau'd. Cannot go up to Wegovy 2.4 mg subcu weekly due to GI s/e. Will attempt change to Zepbound 5 mg subcu weekly. Needs to eat smaller meals and increase protein intake. Patient is only doing limited exercise. Discussed need for resistance training with light weights to start at least 2-3 days a week. 06/24/24: BMI 31, Weight 153. Increase to Zepbound 5 mg subcu weekly. Pt tolerating with less constipation. 08/05/24: BMI 31, Weight 154. Has [employer], switched back to Wegovy. Currently on 1.7 mg dose. Tolerating well, snacking more. 09/23/24: BMI 30, Weight 154 lb. Continue Wegovy 2.4 mg . Needs to increase protein. #Patient has a history of hydrocephalus, she should continue following with neurology. She is on Topamax which will help with weight loss.Occipital nerve treatment through paid management on February 22. Topamax increase by neurologist, Patient tolerating well. #Depression: patient should continue sertraline. Dose just increased, And patient is feeling better. Control at this time. Patient falls with therapy once a week, next appointment is tomorrow. She does have support with her grandmother, but does not have support at home with her mother/sister. Patient does have a history of self-harm rubbing her thumb against a tape dispenser. She declines any suicidal ideations now. She does have the crisis hotline. Has never been hospitalized. Patient provided with walk-in clinic for psychiatric needs in [place] to use as needed. She should call the office with any questions or concerns. Patient is understanding it is feeling motivated at this time.This conversation was had with patients grandmother in the room as well who is understanding. 11/25/2024: BMI 30.49, weight 151.0 patient admits that Wegovy 2.4 mg is not suppressing her appetite and her hunger cravings is much as Zepbound was. Will see if patient can be approved for Mounjaro potentially 01/06/25: BMI 30, weight 149. Will increase Mounjaro to 7.5 mg subcu weekly. Patient overall tolerating well. She reports mild improvement of her constipation. Patient is current to drink water. Patient needs to find a physical activity that she enjoys, as she reports right now she is only standing on a vibrating plate twice a day. #Depression: Patient states that her citalopram was recently increased due to her increased feelings of depression that revolve around her job at this time. However during our conversation she did receive a phone call that she was approved for her new job offer which she is congratulated for. This will be helpful with patient's feelings of depression. #Hydrocephalus: Patient continues to follow with neurologist #Constipation: Patient currently on Linzess 145 mcg daily I did tell patient to contact her PCP about increasing her Linzess dose, additionally patient's lack of water could be contributing towards patient's lack of bowel movements. I did advise patient to increase her water intake, increase her fiber I did give patient handout on high-fiber foods. Advised patient to move her body to stimulate bowel movements as well. Time spent 30 minutes with greater than 50% on care coordination and patient education. Patient will follow-up in one month for weight management. All patient questions answered in office today. Patient should call the office in the meantime with any questions or concerns. Total time spent wiht patient is 30 minutes , over hald being face to face time. Case discussed with collaborating physician Althea Mooney who reviewed the assessment and plan. Chart, medications, labs, vital signs reviewed. Dictation was accomplished with the use of Un[employer] voice recognition software, prone to medical misidentifications and grammatical errors. This is unintentional and the practitioner does try to identify and correct these, but some could still be present. Please do not hesitate to contact practitioner for clarification. 11/25/2024 Hydrocephalus , unspecified type (ICD-10 - G91.9) Ayde Is a 24-year-old female who presents the office for a weight management follow-up. 12/28 weight 199.2, BMI of 40.23. 01/13 weight 191.3, BMI of 38.63. 02/14 Weight 190.3, BMI 38.43 03/27/2022: weight 187, BMI 37.77 - Topamax increase by a neurologist. Patient joined [employer]. Will continue with lifestyle modifications. 04/24/22: weight 184.7, BMI 37.3- Continues to be pleased with her weight loss with lifestyle modifications. Sertraline just increased by PCP. Topamax increased by neurologist. Patient is doing well, no concerns. Great support from her grandmother. Encouraged to continue lifestyle modificationsWorking on consistency. 06/19/22: weight 186.9, BMI 37.75. The patient is struggling with lifestyle modifications. States that her school has been causing her much stress that she has not been able to focus on diet/exercise. Received [facility] today. Will focus on planning her foods for the next four weeks, and consider weight loss medications in the future. Patient educated with history of hydrocephalus, that she will not qualify for phentermine due to cardiac risk factor/ /elevation in blood pressure. She's in the process of talking to neurology about potentially increasing Topamax. Following with therapy regularly. 07/17/22 Weight 184.5 BMI 37.26 Patient lost 2lbs with lifestyle changes will submit patient for Wegovy 0.25mg subq weekly 09/05/22: BMI 37 Weight 184. Awaiting Saxenda. 11/28/22: BMI 38 Weight 191. Discussed importance of taking care of whole self. Recommended looking for a therapist on [employer]. Discused talking to PCP about changing or adding on Rexulti or Vrylar. Discussed compounded semaglutide cost, side effects. Agreeable to in office semaglutide. Sema 0.25 mg subcu administered. Pt warned of s/e, as well as importnace of adequate water/protein intake. 01/09/23: BMI 38 weight 189. Increase to Semaglutide 0.5 compounded. Increase water intake, daily Miralax. Consider Zepbound when available for affordability. 03/19/23: BMI 37, Weght 183. 6lb down, will send for Wegovy 1.7 mg subcu weekly. Discussed admisnistartion/storag e 07/12/23: BMI 35, Weight 172. Continue Wegovy 1.7 mg subcu weekly. 08/27/23: BMI 34, Weight 170. Patient reports that she has had increased fast food intake, and has limited exercise. She also had COVID 1 week ago. She denies any nausea or vomiting. She does report some heartburn with eating spicy or greasy foods. She also endorses mild diarrhea with fast food. Patient was encouraged to increase her resistance training and exercise. Patient's water is about 64 ounces, slightly more would be improved. Will increase dose of Wegovy from 1.7 to 2.4 mg. 10/09/23: BMI 33, Weight 165. Body composition scale shows muscle loss. Discussed importance of eating smaller meals, slowing down how quickly she is eating and exercising. 12/24/23: BMI 32, Weight 160 lb. Decrease to Wegovy 1.7 mg subcu weekly. Change to lansoprazole 30 mg po daily. 03/20/24: BMI 31, Weight 156, continue the Wegovy 1.7 mg subcu weekly. Continue exercise. Congratulted on efforts. Lansopraozole working. 05/05/24: BMI 31, Weight 157. Currently plateau'd. Cannot go up to Wegovy 2.4 mg subcu weekly due to GI s/e. Will attempt change to Zepbound 5 mg subcu weekly. Needs to eat smaller meals and increase protein intake. Patient is only doing limited exercise. Discussed need for resistance training with light weights to start at least 2-3 days a week. 06/24/24: BMI 31, Weight 153. Increase to Zepbound 5 mg subcu weekly. Pt tolerating with less constipation. 08/05/24: BMI 31, Weight 154. Has [employer], switched back to Wegovy. Currently on 1.7 mg dose. Tolerating well, snacking more. 09/23/24: BMI 30, Weight 154 lb. Continue Wegovy 2.4 mg . Needs to increase protein. #Patient has a history of hydrocephalus, she should continue following with neurology. She is on Topamax which will help with weight loss.Occipital nerve treatment through paid management on February 22. Topamax increase by neurologist, Patient tolerating well. #Depression: patient should continue sertraline. Dose just increased, And patient is feeling better. Control at this time. Patient falls with therapy once a week, next appointment is tomorrow. She does have support with her grandmother, but does not have support at home with her mother/sister. Patient does have a history of self-harm rubbing her thumb against a tape dispenser. She declines any suicidal ideations now. She does have the crisis hotline. Has never been hospitalized. Patient provided with walk-in clinic for psychiatric needs in [place] to use as needed. She should call the office with any questions or concerns. Patient is understanding it is feeling motivated at this time.This conversation was had with patients grandmother in the room as well who is understanding. 11/25/2024: BMI 30.49, weight 151.0 patient admits that Wegovy 2.4 mg is not suppressing her appetite and her hunger cravings is much as Zepbound was. Will see if patient can be approved for Mounjaro potentially #Depression: Patient states that her citalopram was recently increased due to her increased feelings of depression that revolve around her job at this time. However during our conversation she did receive a phone call that she was approved for her new job offer which she is congratulated for. This will be helpful with patient's feelings of depression. #Hydrocephalus: Patient continues to follow with neurologist #Constipation: Patient currently on Linzess 145 mcg daily I did tell patient to contact her PCP about increasing her Linzess dose, additionally patient's lack of water could be contributing towards patient's lack of bowel movements. I did advise patient to increase her water intake, increase her fiber I did give patient handout on high-fiber foods. Advised patient to move her body to stimulate bowel movements as well. #Hydrocephalus: Patient does follow with neurology, she is doing well on Emgality, states that she recently had her shunt examined and all is well. Time spent 30 minutes with greater than 50% on care coordination and patient education. Patient will follow-up in one month for weight management. All patient questions answered in office today. Patient should call the office in the meantime with any questions or concerns. Total time spent wiht patient is 30 minutes , over hald being face to face time. Case discussed with collaborating physician Althea Mooney who reviewed the assessment and plan. Chart, medications, labs, vital signs reviewed. Dictation was accomplished with the use of [employer] voice recognition software, prone to medical misidentifications and grammatical errors. This is unintentional and the practitioner does try to identify and correct these, but some could still be present. Please do not hesitate to contact practitioner for clarification. 01/06/2025 Encounter for examination of blood pressure with abnormal findings (ICD-10 - Z01.31) Ayde Is a 24-year-old female who presents the office for a weight management follow-up. 12/28 weight 199.2, BMI of 40.23. 01/13 weight 191.3, BMI of 38.63. 02/14 Weight 190.3, BMI 38.43 03/27/2022: weight 187, BMI 37.77 - Topamax increase by a neurologist. Patient joined [employer]. Will continue with lifestyle modifications. 04/24/22: weight 184.7, BMI 37.3- Continues to be pleased with her weight loss with lifestyle modifications. Sertraline just increased by PCP. Topamax increased by neurologist. Patient is doing well, no concerns. Great support from her grandmother. Encouraged to continue lifestyle modificationsWorking on consistency. 06/19/22: weight 186.9, BMI 37.75. The patient is struggling with lifestyle modifications. States that her school has been causing her much stress that she has not been able to focus on diet/exercise. Received [facility] today. Will focus on planning her foods for the next four weeks, and consider weight loss medications in the future. Patient educated with history of hydrocephalus, that she will not qualify for phentermine due to cardiac risk factor/ /elevation in blood pressure. She's in the process of talking to neurology about potentially increasing Topamax. Following with therapy regularly. 07/17/22 Weight 184.5 BMI 37.26 Patient lost 2lbs with lifestyle changes will submit patient for Wegovy 0.25mg subq weekly 09/05/22: BMI 37 Weight 184. Awaiting Saxenda. 11/28/22: BMI 38 Weight 191. Discussed importance of taking care of whole self. Recommended looking for a therapist on [employer]. Discused talking to PCP about changing or adding on Rexulti or Vrylar. Discussed compounded semaglutide cost, side effects. Agreeable to in office semaglutide. Sema 0.25 mg subcu administered. Pt warned of s/e, as well as importnace of adequate water/protein intake. 01/09/23: BMI 38 weight 189. Increase to Semaglutide 0.5 compounded. Increase water intake, daily Miralax. Consider Zepbound when available for affordability. 03/19/23: BMI 37, Weght 183. 6lb down, will send for Wegovy 1.7 mg subcu weekly. Discussed admisnistartion/storag e 07/12/23: BMI 35, Weight 172. Continue Wegovy 1.7 mg subcu weekly. 08/27/23: BMI 34, Weight 170. Patient reports that she has had increased fast food intake, and has limited exercise. She also had COVID 1 week ago. She denies any nausea or vomiting. She does report some heartburn with eating spicy or greasy foods. She also endorses mild diarrhea with fast food. Patient was encouraged to increase her resistance training and exercise. Patient's water is about 64 ounces, slightly more would be improved. Will increase dose of Wegovy from 1.7 to 2.4 mg. 10/09/23: BMI 33, Weight 165. Body composition scale shows muscle loss. Discussed importance of eating smaller meals, slowing down how quickly she is eating and exercising. 12/24/23: BMI 32, Weight 160 lb. Decrease to Wegovy 1.7 mg subcu weekly. Change to lansoprazole 30 mg po daily. 03/20/24: BMI 31, Weight 156, continue the Wegovy 1.7 mg subcu weekly. Continue exercise. Congratulted on efforts. Lansopraozole working. 05/05/24: BMI 31, Weight 157. Currently plateau'd. Cannot go up to Wegovy 2.4 mg subcu weekly due to GI s/e. Will attempt change to Zepbound 5 mg subcu weekly. Needs to eat smaller meals and increase protein intake. Patient is only doing limited exercise. Discussed need for resistance training with light weights to start at least 2-3 days a week. 06/24/24: BMI 31, Weight 153. Increase to Zepbound 5 mg subcu weekly. Pt tolerating with less constipation. 08/05/24: BMI 31, Weight 154. Has [employer], switched back to Wegovy. Currently on 1.7 mg dose. Tolerating well, snacking more. 09/23/24: BMI 30, Weight 154 lb. Continue Wegovy 2.4 mg . Needs to increase protein. #Patient has a history of hydrocephalus, she should continue following with neurology. She is on Topamax which will help with weight loss.Occipital nerve treatment through paid management on February 22. Topamax increase by neurologist, Patient tolerating well. #Depression: patient should continue sertraline. Dose just increased, And patient is feeling better. Control at this time. Patient falls with therapy once a week, next appointment is tomorrow. She does have support with her grandmother, but does not have support at home with her mother/sister. Patient does have a history of self-harm rubbing her thumb against a tape dispenser. She declines any suicidal ideations now. She does have the crisis hotline. Has never been hospitalized. Patient provided with walk-in clinic for psychiatric needs in [place] to use as needed. She should call the office with any questions or concerns. Patient is understanding it is feeling motivated at this time.This conversation was had with patients grandmother in the room as well who is understanding. 11/25/2024: BMI 30.49, weight 151.0 patient admits that Wegovy 2.4 mg is not suppressing her appetite and her hunger cravings is much as Zepbound was. Will see if patient can be approved for Mounjaro potentially 01/06/25: BMI 30, weight 149. Will increase Mounjaro to 7.5 mg subcu weekly. Patient overall tolerating well. She reports mild improvement of her constipation. Patient is current to drink water. Patient needs to find a physical activity that she enjoys, as she reports right now she is only standing on a vibrating plate twice a day. #Depression: Patient states that her citalopram was recently increased due to her increased feelings of depression that revolve around her job at this time. However during our conversation she did receive a phone call that she was approved for her new job offer which she is congratulated for. This will be helpful with patient's feelings of depression. #Hydrocephalus: Patient continues to follow with neurologist #Constipation: Patient currently on Linzess 145 mcg daily I did tell patient to contact her PCP about increasing her Linzess dose, additionally patient's lack of water could be contributing towards patient's lack of bowel movements. I did advise patient to increase her water intake, increase her fiber I did give patient handout on high-fiber foods. Advised patient to move her body to stimulate bowel movements as well. Time spent 30 minutes with greater than 50% on care coordination and patient education. Patient will follow-up in one month for weight management. All patient questions answered in office today. Patient should call the office in the meantime with any questions or concerns. Total time spent wiht patient is 30 minutes , over hald being face to face time. Case discussed with collaborating physician Althea Mooney who reviewed the assessment and plan. Chart, medications, labs, vital signs reviewed. Dictation was accomplished with the use of [employer] voice recognition software, prone to medical misidentifications and grammatical errors. This is unintentional and the practitioner does try to identify and correct these, but some could still be present. Please do not hesitate to contact practitioner for clarification. 11/25/2024 Depression, unspecified (ICD-10 - F32.A) Ayde Is a 24-year-old female who presents the office for a weight management follow-up. 12/28 weight 199.2, BMI of 40.23. 01/13 weight 191.3, BMI of 38.63. 02/14 Weight 190.3, BMI 38.43 03/27/2022: weight 187, BMI 37.77 - Topamax increase by a neurologist. Patient joined [employer]. Will continue with lifestyle modifications. 04/24/22: weight 184.7, BMI 37.3- Continues to be pleased with her weight loss with lifestyle modifications. Sertraline just increased by PCP. Topamax increased by neurologist. Patient is doing well, no concerns. Great support from her grandmother. Encouraged to continue lifestyle modificationsWorking on consistency. 06/19/22: weight 186.9, BMI 37.75. The patient is struggling with lifestyle modifications. States that her school has been causing her much stress that she has not been able to focus on diet/exercise. Received [facility] today. Will focus on planning her foods for the next four weeks, and consider weight loss medications in the future. Patient educated with history of hydrocephalus, that she will not qualify for phentermine due to cardiac risk factor/ /elevation in blood pressure. She's in the process of talking to neurology about potentially increasing Topamax. Following with therapy regularly. 07/17/22 Weight 184.5 BMI 37.26 Patient lost 2lbs with lifestyle changes will submit patient for Wegovy 0.25mg subq weekly 09/05/22: BMI 37 Weight 184. Awaiting Saxenda. 11/28/22: BMI 38 Weight 191. Discussed importance of taking care of whole self. Recommended looking for a therapist on [employer]. Discused talking to PCP about changing or adding on Rexulti or Vrylar. Discussed compounded semaglutide cost, side effects. Agreeable to in office semaglutide. Sema 0.25 mg subcu administered. Pt warned of s/e, as well as importnace of adequate water/protein intake. 01/09/23: BMI 38 weight 189. Increase to Semaglutide 0.5 compounded. Increase water intake, daily Miralax. Consider Zepbound when available for affordability. 03/19/23: BMI 37, Weght 183. 6lb down, will send for Wegovy 1.7 mg subcu weekly. Discussed admisnistartion/storag e 07/12/23: BMI 35, Weight 172. Continue Wegovy 1.7 mg subcu weekly. 08/27/23: BMI 34, Weight 170. Patient reports that she has had increased fast food intake, and has limited exercise. She also had COVID 1 week ago. She denies any nausea or vomiting. She does report some heartburn with eating spicy or greasy foods. She also endorses mild diarrhea with fast food. Patient was encouraged to increase her resistance training and exercise. Patient's water is about 64 ounces, slightly more would be improved. Will increase dose of Wegovy from 1.7 to 2.4 mg. 10/09/23: BMI 33, Weight 165. Body composition scale shows muscle loss. Discussed importance of eating smaller meals, slowing down how quickly she is eating and exercising. 12/24/23: BMI 32, Weight 160 lb. Decrease to Wegovy 1.7 mg subcu weekly. Change to lansoprazole 30 mg po daily. 03/20/24: BMI 31, Weight 156, continue the Wegovy 1.7 mg subcu weekly. Continue exercise. Congratulted on efforts. Lansopraozole working. 05/05/24: BMI 31, Weight 157. Currently plateau'd. Cannot go up to Wegovy 2.4 mg subcu weekly due to GI s/e. Will attempt change to Zepbound 5 mg subcu weekly. Needs to eat smaller meals and increase protein intake. Patient is only doing limited exercise. Discussed need for resistance training with light weights to start at least 2-3 days a week. 06/24/24: BMI 31, Weight 153. Increase to Zepbound 5 mg subcu weekly. Pt tolerating with less constipation. 08/05/24: BMI 31, Weight 154. Has [employer], switched back to Wegovy. Currently on 1.7 mg dose. Tolerating well, snacking more. 09/23/24: BMI 30, Weight 154 lb. Continue Wegovy 2.4 mg . Needs to increase protein. #Patient has a history of hydrocephalus, she should continue following with neurology. She is on Topamax which will help with weight loss.Occipital nerve treatment through paid management on February 22. Topamax increase by neurologist, Patient tolerating well. #Depression: patient should continue sertraline. Dose just increased, And patient is feeling better. Control at this time. Patient falls with therapy once a week, next appointment is tomorrow. She does have support with her grandmother, but does not have support at home with her mother/sister. Patient does have a history of self-harm rubbing her thumb against a tape dispenser. She declines any suicidal ideations now. She does have the crisis hotline. Has never been hospitalized. Patient provided with walk-in clinic for psychiatric needs in [place] to use as needed. She should call the office with any questions or concerns. Patient is understanding it is feeling motivated at this time.This conversation was had with patients grandmother in the room as well who is understanding. 11/25/2024: BMI 30.49, weight 151.0 patient admits that Wegovy 2.4 mg is not suppressing her appetite and her hunger cravings is much as Zepbound was. Will see if patient can be approved for Mounjaro potentially #Depression: Patient states that her citalopram was recently increased due to her increased feelings of depression that revolve around her job at this time. However during our conversation she did receive a phone call that she was approved for her new job offer which she is congratulated for. This will be helpful with patient's feelings of depression. #Hydrocephalus: Patient continues to follow with neurologist #Constipation: Patient currently on Linzess 145 mcg daily I did tell patient to contact her PCP about increasing her Linzess dose, additionally patient's lack of water could be contributing towards patient's lack of bowel movements. I did advise patient to increase her water intake, increase her fiber I did give patient handout on high-fiber foods. Advised patient to move her body to stimulate bowel movements as well. #Hydrocephalus: Patient does follow with neurology, she is doing well on Emgality, states that she recently had her shunt examined and all is well. Time spent 30 minutes with greater than 50% on care coordination and patient education. Patient will follow-up in one month for weight management. All patient questions answered in office today. Patient should call the office in the meantime with any questions or concerns. Total time spent wiht patient is 30 minutes , over hald being face to face time. Case discussed with collaborating physician Althea Mooney who reviewed the assessment and plan. Chart, medications, labs, vital signs reviewed. Dictation was accomplished with the use of [employer] voice recognition software, prone to medical misidentifications and grammatical errors. This is unintentional and the practitioner does try to identify and correct these, but some could still be present. Please do not hesitate to contact practitioner for clarification. 09/23/2024 Encounter for examination of blood pressure with abnormal findings (ICD-10 - Z01.31) Ayde Is a 22-year-old female who presents the office for a weight management follow-up. 12/28 weight 199.2, BMI of 40.23. 01/13 weight 191.3, BMI of 38.63. 02/14 Weight 190.3, BMI 38.43 03/27/2022: weight 187, BMI 37.77 - Topamax increase by a neurologist. Patient joined [employer]. Will continue with lifestyle modifications. 04/24/22: weight 184.7, BMI 37.3- Continues to be pleased with her weight loss with lifestyle modifications. Sertraline just increased by PCP. Topamax increased by neurologist. Patient is doing well, no concerns. Great support from her grandmother. Encouraged to continue lifestyle modificationsWorking on consistency. 06/19/22: weight 186.9, BMI 37.75. The patient is struggling with lifestyle modifications. States that her school has been causing her much stress that she has not been able to focus on diet/exercise. Received [facility] today. Will focus on planning her foods for the next four weeks, and consider weight loss medications in the future. Patient educated with history of hydrocephalus, that she will not qualify for phentermine due to cardiac risk factor/ /elevation in blood pressure. She's in the process of talking to neurology about potentially increasing Topamax. Following with therapy regularly. 07/17/22 Weight 184.5 BMI 37.26 Patient lost 2lbs with lifestyle changes will submit patient for Wegovy 0.25mg subq weekly 09/05/22: BMI 37 Weight 184. Awaiting Saxenda. 11/28/22: BMI 38 Weight 191. Discussed importance of taking care of whole self. Recommended looking for a therapist on [facility] [employer]. Discused talking to PCP about changing or adding on Rexulti or Vrylar. Discussed compounded semaglutide cost, side effects. Agreeable to in office semaglutide. Sema 0.25 mg subcu administered. Pt warned of s/e, as well as importnace of adequate water/protein intake. 01/09/23: BMI 38 weight 189. Increase to Semaglutide 0.5 compounded. Increase water intake, daily Miralax. Consider Zepbound when available for affordability. 03/19/23: BMI 37, Weght 183. 6lb down, will send for Wegovy 1.7 mg subcu weekly. Discussed admisnistartion/storag e 07/12/23: BMI 35, Weight 172. Continue Wegovy 1.7 mg subcu weekly. 08/27/23: BMI 34, Weight 170. Patient reports that she has had increased fast food intake, and has limited exercise. She also had COVID 1 week ago. She denies any nausea or vomiting. She does report some heartburn with eating spicy or greasy foods. She also endorses mild diarrhea with fast food. Patient was encouraged to increase her resistance training and exercise. Patient's water is about 64 ounces, slightly more would be improved. Will increase dose of Wegovy from 1.7 to 2.4 mg. 10/09/23: BMI 33, Weight 165. Body composition scale shows muscle loss. Discussed importance of eating smaller meals, slowing down how quickly she is eating and exercising. 12/24/23: BMI 32, Weight 160 lb. Decrease to Wegovy 1.7 mg subcu weekly. Change to lansoprazole 30 mg po daily. 03/20/24: BMI 31, Weight 156, continue the Wegovy 1.7 mg subcu weekly. Continue exercise. Congratulted on efforts. Lansopraozole working. 05/05/24: BMI 31, Weight 157. Currently plateau'd. Cannot go up to Wegovy 2.4 mg subcu weekly due to GI s/e. Will attempt change to Zepbound 5 mg subcu weekly. Needs to eat smaller meals and increase protein intake. Patient is only doing limited exercise. Discussed need for resistance training with light weights to start at least 2-3 days a week. 06/24/24: BMI 31, Weight 153. Increase to Zepbound 5 mg subcu weekly. Pt tolerating with less constipation. 08/05/24: BMI 31, Weight 154. Has [employer], switched back to Wegovy. Currently on 1.7 mg dose. Tolerating well, snacking more. 09/23/24: BMI 30, Weight 154 lb. Continue Wegovy 2.4 mg . Needs to increase protein. #Patient has a history of hydrocephalus, she should continue following with neurology. She is on Topamax which will help with weight loss.Occipital nerve treatment through [facility] management on February 22. Topamax increase by neurologist, Patient tolerating well. #Depression: patient should continue sertraline. Dose just increased, And patient is feeling better. Control at this time. Patient falls with therapy once a week, next appointment is tomorrow. She does have support with her grandmother, but does not have support at home with her mother/sister. Patient does have a history of self-harm rubbing her thumb against a tape dispenser. She declines any suicidal ideations now. She does have the crisis hotline. Has never been hospitalized. Patient provided with walk-in clinic for psychiatric needs in [place] to use as needed. She should call the office with any questions or concerns. Patient is understanding it is feeling motivated at this time.This conversation was had with patients grandmother in the room as well who is understanding. #Hydrocephalus: Patient does follow with neurology, she is doing well on Emgality, states that she recently had her shunt examined and all is well. Time spent 30 minutes with greater than 50% on care coordination and patient education. Patient will follow-up in one month for weight management. All patient questions answered in office today. Patient should call the office in the meantime with any questions or concerns. Total time spent wiht patient is 30 minutes , over hald being face to face time. Case discussed with collaborating physician Althea Mooney who reviewed the assessment and plan. Chart, medications, labs, vital signs reviewed. Dictation was accomplished with the use of Unmetric voice recognition software, prone to medical misidentifications and grammatical errors. This is unintentional and the practitioner does try to identify and correct these, but some could still be present. Please do not hesitate to contact practitioner for clarification. 08/05/2024 Encounter for examination of blood pressure without abnormal findings (ICD-10 - Z01.30) Ayde Is a 22-year-old female who presents the office for a weight management follow-up. 12/28 weight 199.2, BMI of 40.23. 01/13 weight 191.3, BMI of 38.63. 02/14 Weight 190.3, BMI 38.43 03/27/2022: weight 187, BMI 37.77 - Topamax increase by a neurologist. Patient joined [employer]. Will continue with lifestyle modifications. 04/24/22: weight 184.7, BMI 37.3- Continues to be pleased with her weight loss with lifestyle modifications. Sertraline just increased by PCP. Topamax increased by neurologist. Patient is doing well, no concerns. Great support from her grandmother. Encouraged to continue lifestyle modificationsWorking on consistency. 06/19/22: weight 186.9, BMI 37.75. The patient is struggling with lifestyle modifications. States that her school has been causing her much stress that she has not been able to focus on diet/exercise. Received [facility] today. Will focus on planning her foods for the next four weeks, and consider weight loss medications in the future. Patient educated with history of hydrocephalus, that she will not qualify for phentermine due to cardiac risk factor/ /elevation in blood pressure. She's in the process of talking to neurology about potentially increasing Topamax. Following with therapy regularly. 07/17/22 Weight 184.5 BMI 37.26 Patient lost 2lbs with lifestyle changes will submit patient for Wegovy 0.25mg subq weekly 09/05/22: BMI 37 Weight 184. Awaiting Saxenda. 11/28/22: BMI 38 Weight 191. Discussed importance of taking care of whole self. Recommended looking for a therapist on [employer]. Discused talking to PCP about changing or adding on Rexulti or Vrylar. Discussed compounded semaglutide cost, side effects. Agreeable to in office semaglutide. Sema 0.25 mg subcu administered. Pt warned of s/e, as well as importnace of adequate water/protein intake. 01/09/23: BMI 38 weight 189. Increase to Semaglutide 0.5 compounded. Increase water intake, daily Miralax. Consider Zepbound when available for affordability. 03/19/23: BMI 37, Weght 183. 6lb down, will send for Wegovy 1.7 mg subcu weekly. Discussed admisnistartion/storag e 07/12/23: BMI 35, Weight 172. Continue Wegovy 1.7 mg subcu weekly. 08/27/23: BMI 34, Weight 170. Patient reports that she has had increased fast food intake, and has limited exercise. She also had COVID 1 week ago. She denies any nausea or vomiting. She does report some heartburn with eating spicy or greasy foods. She also endorses mild diarrhea with fast food. Patient was encouraged to increase her resistance training and exercise. Patient's water is about 64 ounces, slightly more would be improved. Will increase dose of Wegovy from 1.7 to 2.4 mg. 10/09/23: BMI 33, Weight 165. Body composition scale shows muscle loss. Discussed importance of eating smaller meals, slowing down how quickly she is eating and exercising. 12/24/23: BMI 32, Weight 160 lb. Decrease to Wegovy 1.7 mg subcu weekly. Change to lansoprazole 30 mg po daily. 03/20/24: BMI 31, Weight 156, continue the Wegovy 1.7 mg subcu weekly. Continue exercise. Congratulted on efforts. Lansopraozole working. 05/05/24: BMI 31, Weight 157. Currently plateau'd. Cannot go up to Wegovy 2.4 mg subcu weekly due to GI s/e. Will attempt change to Zepbound 5 mg subcu weekly. Needs to eat smaller meals and increase protein intake. Patient is only doing limited exercise. Discussed need for resistance training with light weights to start at least 2-3 days a week. 06/24/24: BMI 31, Weight 153. Increase to Zepbound 5 mg subcu weekly. Pt tolerating with less constipation. 08/05/24: BMI 31, Weight 154. Has [employer], switched back to Wegovy. Currently on 1.7 mg dose. Tolerating well, snacking more. #Patient has a history of hydrocephalus, she should continue following with neurology. She is on Topamax which will help with weight loss.Occipital nerve treatment through paid management on February 22. Topamax increase by neurologist, Patient tolerating well. #Depression: patient should continue sertraline. Dose just increased, And patient is feeling better. Control at this time. Patient falls with therapy once a week, next appointment is tomorrow. She does have support with her grandmother, but does not have support at home with her mother/sister. Patient does have a history of self-harm rubbing her thumb against a tape dispenser. She declines any suicidal ideations now. She does have the crisis hotline. Has never been hospitalized. Patient provided with walk-in clinic for psychiatric needs in [place] to use as needed. She should call the office with any questions or concerns. Patient is understanding it is feeling motivated at this time.This conversation was had with patients grandmother in the room as well who is understanding. 01/31/2024: BMI 31.83, weight 157.63. Continue Wegovy 1.7 mg, patient states that she is intermittently constipated has a bowel movement every 2 days. She is continuing with MiraLAX and Colace at this time, states that her PCP and neurologist are aware that she is on Wegovy 1.7 and is intermittently constipated. Patient encouraged to drink more water as this may help with constipation, she is dehydrated upon SECA scale today. Patient did bring with her a bag of her disposable pen needles from [employer] to dispose in office today. #Hydrocephalus: Patient does follow with neurology, she is doing well on Emgality, states that she recently had her shunt examined and all is well. Time spent 30 minutes with greater than 50% on care coordination and patient education. Patient will follow-up in one month for weight management. All patient questions answered in office today. Patient should call the office in the meantime with any questions or concerns. Total time spent wiht patient is 30 minutes , over hald being face to face time. Case discussed with collaborating physician Althea Mooney who reviewed the assessment and plan. Chart, medications, labs, vital signs reviewed. Dictation was accomplished with the use of Un[employer] voice recognition software, prone to medical misidentifications and grammatical errors. This is unintentional and the practitioner does try to identify and correct these, but some could still be present. Please do not hesitate to contact practitioner for clarification. 11/25/2024 Encounter for examination of blood pressure with abnormal findings (ICD-10 - Z01.31) Ayde Is a 24-year-old female who presents the office for a weight management follow-up. 12/28 weight 199.2, BMI of 40.23. 01/13 weight 191.3, BMI of 38.63. 02/14 Weight 190.3, BMI 38.43 03/27/2022: weight 187, BMI 37.77 - Topamax increase by a neurologist. Patient joined [employer]. Will continue with lifestyle modifications. 04/24/22: weight 184.7, BMI 37.3- Continues to be pleased with her weight loss with lifestyle modifications. Sertraline just increased by PCP. Topamax increased by neurologist. Patient is doing well, no concerns. Great support from her grandmother. Encouraged to continue lifestyle modificationsWorking on consistency. 06/19/22: weight 186.9, BMI 37.75. The patient is struggling with lifestyle modifications. States that her school has been causing her much stress that she has not been able to focus on diet/exercise. Received [facility] today. Will focus on planning her foods for the next four weeks, and consider weight loss medications in the future. Patient educated with history of hydrocephalus, that she will not qualify for phentermine due to cardiac risk factor/ /elevation in blood pressure. She's in the process of talking to neurology about potentially increasing Topamax. Following with therapy regularly. 07/17/22 Weight 184.5 BMI 37.26 Patient lost 2lbs with lifestyle changes will submit patient for Wegovy 0.25mg subq weekly 09/05/22: BMI 37 Weight 184. Awaiting Saxenda. 11/28/22: BMI 38 Weight 191. Discussed importance of taking care of whole self. Recommended looking for a therapist on [employer]. Discused talking to PCP about changing or adding on Rexulti or Vrylar. Discussed compounded semaglutide cost, side effects. Agreeable to in office semaglutide. Sema 0.25 mg subcu administered. Pt warned of s/e, as well as importnace of adequate water/protein intake. 01/09/23: BMI 38 weight 189. Increase to Semaglutide 0.5 compounded. Increase water intake, daily Miralax. Consider Zepbound when available for affordability. 03/19/23: BMI 37, Weght 183. 6lb down, will send for Wegovy 1.7 mg subcu weekly. Discussed admisnistartion/storag e 07/12/23: BMI 35, Weight 172. Continue Wegovy 1.7 mg subcu weekly. 08/27/23: BMI 34, Weight 170. Patient reports that she has had increased fast food intake, and has limited exercise. She also had COVID 1 week ago. She denies any nausea or vomiting. She does report some heartburn with eating spicy or greasy foods. She also endorses mild diarrhea with fast food. Patient was encouraged to increase her resistance training and exercise. Patient's water is about 64 ounces, slightly more would be improved. Will increase dose of Wegovy from 1.7 to 2.4 mg. 10/09/23: BMI 33, Weight 165. Body composition scale shows muscle loss. Discussed importance of eating smaller meals, slowing down how quickly she is eating and exercising. 12/24/23: BMI 32, Weight 160 lb. Decrease to Wegovy 1.7 mg subcu weekly. Change to lansoprazole 30 mg po daily. 03/20/24: BMI 31, Weight 156, continue the Wegovy 1.7 mg subcu weekly. Continue exercise. Congratulted on efforts. Lansopraozole working. 05/05/24: BMI 31, Weight 157. Currently plateau'd. Cannot go up to Wegovy 2.4 mg subcu weekly due to GI s/e. Will attempt change to Zepbound 5 mg subcu weekly. Needs to eat smaller meals and increase protein intake. Patient is only doing limited exercise. Discussed need for resistance training with light weights to start at least 2-3 days a week. 06/24/24: BMI 31, Weight 153. Increase to Zepbound 5 mg subcu weekly. Pt tolerating with less constipation. 08/05/24: BMI 31, Weight 154. Has [employer], switched back to Wegovy. Currently on 1.7 mg dose. Tolerating well, snacking more. 09/23/24: BMI 30, Weight 154 lb. Continue Wegovy 2.4 mg . Needs to increase protein. #Patient has a history of hydrocephalus, she should continue following with neurology. She is on Topamax which will help with weight loss.Occipital nerve treatment through paid management on February 22. Topamax increase by neurologist, Patient tolerating well. #Depression: patient should continue sertraline. Dose just increased, And patient is feeling better. Control at this time. Patient falls with therapy once a week, next appointment is tomorrow. She does have support with her grandmother, but does not have support at home with her mother/sister. Patient does have a history of self-harm rubbing her thumb against a tape dispenser. She declines any suicidal ideations now. She does have the crisis hotline. Has never been hospitalized. Patient provided with walk-in clinic for psychiatric needs in [place] to use as needed. She should call the office with any questions or concerns. Patient is understanding it is feeling motivated at this time.This conversation was had with patients grandmother in the room as well who is understanding. 11/25/2024: BMI 30.49, weight 151.0 patient admits that Wegovy 2.4 mg is not suppressing her appetite and her hunger cravings is much as Zepbound was. Will see if patient can be approved for Mounjaro potentially #Depression: Patient states that her citalopram was recently increased due to her increased feelings of depression that revolve around her job at this time. However during our conversation she did receive a phone call that she was approved for her new job offer which she is congratulated for. This will be helpful with patient's feelings of depression. #Hydrocephalus: Patient continues to follow with neurologist #Constipation: Patient currently on Linzess 145 mcg daily I did tell patient to contact her PCP about increasing her Linzess dose, additionally patient's lack of water could be contributing towards patient's lack of bowel movements. I did advise patient to increase her water intake, increase her fiber I did give patient handout on high-fiber foods. Advised patient to move her body to stimulate bowel movements as well. #Hydrocephalus: Patient does follow with neurology, she is doing well on Emgality, states that she recently had her shunt examined and all is well. Time spent 30 minutes with greater than 50% on care coordination and patient education. Patient will follow-up in one month for weight management. All patient questions answered in office today. Patient should call the office in the meantime with any questions or concerns. Total time spent wiht patient is 30 minutes , over hald being face to face time. Case discussed with collaborating physician Althea Mooney who reviewed the assessment and plan. Chart, medications, labs, vital signs reviewed. Dictation was accomplished with the use of Un[employer] voice recognition software, prone to medical misidentifications and grammatical errors. This is unintentional and the practitioner does try to identify and correct these, but some could still be present. Please do not hesitate to contact practitioner for clarification. Plan Of Treatment Next Appt Details Provider Name:CHANCE FRENCH, 03/09/2025 02:45:00 PM, [address], [place], [address], Insurance Providers Payer Name Payer Address Payer Phone Subscriber Number Group Number Insured Name Patient Relationship to Insured Coverage Start Date Coverage End Date [facility] [address] [place] [phone] [id number] Ayde Broussard Self - patient is the insured Medications Administered Medication Instructions Date of Administration Dosage Notes MIC[facility] B12 INJECTION 12/28/2021 MICC B12 INJECTION 01/25/2022 1 mL Lot #: [id number] MIC[facility] B12 INJECTION 02/14/2022 Lot# [id number] MICC B12 INJECTION 02/28/2022 lot # [id number] MICC B12 INJECTION 03/27/2022 [id number] MICC B12 INJECTION 04/24/2022 [id number] MICC B12 INJECTION 2022 lot # [id number] MICC B12 INJECTION 07/03/2022 1 mL Lot # [id number] MICC B12 INJECTION 07/17/2022 lot # [id number] MICC B12 INJECTION 08/04/2022 lot # [id number] MICC B12 INJECTION 09/05/2022 lot # [id number] Semaglutide 11/28/2022 lot# [id number] Semaglutide 12/06/2022 0.25 mg Sema 0.25mg Semaglutide 12/13/2022 0.25 mg LOT# [id number] 0.25MG Semaglutide 12/20/2022 0.25 mg LRQ SQ Semaglutide 12/27/2022 0.25 mg Semaglutide 01/03/2023 0.5 mg Sema 0.5mg [id number] Semaglutide 01/09/2023 lot#[id number] 0.5mg Semaglutide 01/16/2023 0.5 mg LLQ SQ Semaglutide 01/23/2023 0.5 mg LLQ SQ Semaglutide 01/30/2023 1.0 mg LLQ SQ Semaglutide 02/06/2023 1mg Semaglutide 02/13/2023 1 mg Semaglutide 02/20/2023 1 mg Semaglutide 02/27/2023 1 mg Semaglutide 03/06/2023 1 Semaglutide 03/13/2023 1 mg Semaglutide 03/19/2023 1 mg lot# [id number] 1mg Semaglutide 03/26/2023 Semaglutide 04/02/2023 1 mg Semaglutide 04/09/2023 1 mg Semaglutide 04/17/2023 1 mg Medical (General) History Medical History History ICD Code Depression, unspecified F32.A Hydrocephalus, unspecified G91.9 Morbid obesity E66.01 Insomnia, unspecified G47.00 Surgical History Surgery Date(Month/Year) tonsillectomy adenotomy shunt revision
--- OUTSIDE RECORDS SUMMARY | 2025-02-10 19:11 | XMS_ITS | Encounter Summary ---
Author Organization [facility] spital Address [address] [place] [address] Phone Care Team Providers Care School Curriculum Developer Name Role Phone Mandeep Don MD Primary Care Provider [phone] Addison Sofia Unavailable [phone] Mandeep Don MD Unavailable Encounter Details Date Type Department Care Team (Latest Contact Info) Description 06/27/2023 Abstract Nando Conversion Provider, MD Giana [address] [place] [id number] Social History Tobacco Use Types Packs/Day Years Used Date Smoking Tobacco: Never Assessed Comments Unknown Sex and Gender Information Value Date Recorded Sex Assigned at Not on file Legal Sex Female 4:20 PM EDT Gender Identity Not on file Sexual Orientation Not on file documented as of this encounter Plan of Treatment Upcoming Encounters Date Type Department Care Team (Late st Contact Info) Description 02/17/2025 10:00 AM EST Procedure Visit [facility] [address] [place] [address] Aurelia Larsen, PAPER FINAL INSPECTOR [address] [place] [address] documented as of this encounter Visit Diagnoses Not on filedocumented in this encounter Care Teams School Curriculum Developer Relationship Specialty Start Date End Date Mandeep Don MD [address] [place] [id number] PCP - General 06/22/23 Addison Sofia [address] [place], [place] [phone] PCP - Insurance PCP 10/11/22 Mandeep Don MD [address] [place], [place] [phone] PCP - Clinical PCP 02/17/19 documented as of this encounter
--- OUTSIDE RECORDS SUMMARY | 2025-02-10 19:11 | XMS_ITS | Data Portability ---
Author Organization [place] - [facility], Allergy Address [address] [address] Assessment Encounter Date Assessment Date Assessment LastModified by Organization Details LastModified Time 10/25/2023 10/25/2023 Left ear remains well-healed long-term following tympanoplasty. 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 At this point I do not think that further follow-up or surveillance is necessary. She can follow-up as needed [email or web address] Not available 10/25/2023 15:55:06 Plan of Treatment Reminders Order Date Submit Date Provider Last Modified By Organization Details Last Modified Time Details Appointments None record ed. Lab None record ed. Referral None record ed. Procedures None record ed. Surgeries None record ed. Imaging None record ed. Medication Orders None record ed. Patient TargetsNo targets recorded. Patient InstructionsNo instructions recorded. Reason for Referral None Reported. Results Created Date Observation Date Name Description Value Unit Range Abnormal Flag Note LastModifiedBy Organization Detail LastModifiedTime 10/17/19 24 07/02/2018 audio gram No observ ation record ed. [email or web address] Not Available 05:39:53 10/17/1901/13/2020 imagi ng/di agnos tic resul t No observ ation record ed. [email or web address] Not Available 05:40:09 Result Notes None recorded. Problems Name Problem SNOMED Code Status Onset Date Resolution Date Notes Provider Name and Address Organization Details Recorded Time Unilater al conducti ve hearing loss with unrestri cted hearing on the contrala teral side Completed 201309/28/2023 Conducti ve hearing loss, unilater al; Note: Date Diagnose d: 12/13/19 14 11:07 AM (389.05) Not Available [facility] 4 02:45:03 Choleste atoma 274999184 Active 2013 Choleste atoma Not Available [facility] 4 01:08:17 Perforat ion of tympanic membrane 72351992 Completed 201309/28/2023 Perforat ion of tympanic membrane ; Note: Date Diagnose d: 12/19/19 14 2:41 PM (384.20) Perfor ation of tympanic membrane , unspecif ied; Note: Date Diagnose d: 12/13/19 14 11:07 AM (384.20) ; Start Date : 12/13/19 14 Not Available [facility] 4 02:45:02 Chronic rhinitis 64227429 Active 2013 Chronic rhinitis ; Note: Date Diagnose d: 02/13/20 14 2:43 PM (472.0) Not Available [facility] 4 02:45:00 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; Note: Date Diagnose d: 5 3:13 PM (380.21) Not Available [facility] 4 02:44:59 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; Note: Date Diagnose d: 5 3:14 PM (385.01) Not Available [facility] 4 02:45:05 Jaw pain 882010204 Active 2014 Jaw pain; Note: Date Diagnose d: 5 4:07 PM (R68.84) Not Available [facility] 4 02:45:05 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 , left ear; Note: Date Diagnose d: 5 4:07 PM (H74.02) Not Available [facility] 4 02:44:58 Impacted cerumen of bilatera l ears 23400164332 12186 Active 2017 Impacted cerumen, bilatera l; Note: Date Diagnose d: 8 2:27 PM (H61.23) Not Available [facility] 4 02:45:04 Conducti ve hearing loss 67097463 Active 2017 Conducti ve hearing loss, unilater al, left ear, with unrestri cted hearing on the contrala teral side; Note: Date Diagnose d: 8 5:03 PM (H90.12) Not Available [facility] 4 02:44:59 Pain of left temporom andibula r joint 12217668961 916569 Active 2018 Arthralg ia of left temporom andibula r joint; Note: Date Diagnose d: 07/02/2018 10:30 AM (M26.622 ) Not Available [facility] 4 02:45:01 Abnormal auditory percepti on 22161647 Active 2019 Other abnormal auditory percepti ons, left ear; Note: Date Diagnose d: 0 1:20 PM (H93.292 ) Not Available [facility] 4 02:45:02 Diffuse otitis externa 09967817 Completed 202109/28/2023 Diffuse otitis externa, left ear; Note: Date Diagnose d: 12/14/19 22 12:47 PM (H60.312 ) Not Available [facility] 4 02:44:56 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 Medical Equipment None Reported. Allergies Allergen ID Allergen Name Allergen Category Reaction Reaction Severity Criticality Documentation Date Start Date Code Code System Note Provider Name and Address Organization Details Recorded Time 460148 latex environme nt,medica tion other Not available Not available 07/10/2023 16104 91 RxNorm React ion: unkno wn, unspe cifie d;; Not Available [facility] 01:17:15 Medications Name Sig Start Date Stop Date Status Note LastModified by Organization Details LastModified Time azithromy jasvir 250 mg tablet TAKE DIRECTED 10/24 completed Not Available Not Available Not Available tizanidin e 4 mg tablet TAKE 1 TABLET BY MOUTH EVERY DAY AT BEDTIME NEEDED FOR MUSCLE SPASMS active Not Available Not Available No t Available ondansetr on HCl 8 mg tablet TAKE 1 TABLET BY MOUTH TWICE DAILY NEEDED FOR NAUSEA AND VOMITING . 10/24 completed Not Available Not Available Not Available prednison e 20 mg tablet TAKE 1 TABLET BY MOUTH TWICE A DAY FOR 5 DAYS 10/24 completed Not Available Not Available Not Available sertralin e 100 mg tablet TAKE 2 TABLETS BY MOUTH DAILY. 10/24 completed Not Available Not Available Not Available topiramat e 25 mg tablet 07/13 completed Medicati on ID: [id number] D uration Value: 90 Brand Name: topirama te Send Method: E-Prescr ibed Sub s Allowed: subs OK Speci al Instruct ion: TK 3 TS PO D 75 MG [facility]D [facility] Not Available Not Available Not Available Ciloxan 0.3 % eye drops 02/12 completed Medicati on ID: [id number] Dur ation Value: 14 Prescri bed By Name: JENNA Reddy nd Name: Ciloxan Send Method: E-Prescr ibed Sub s Allowed: subs OK Speci al Instruct ion: Instill 4 drops twice a day into the affected ear. Med icationG enericNa me: Ciloxan Not Available Not Available Not Available omeprazol e 40 mg capsule,d elayed release TAKE 1 CAPSULE BY MOUTH DAILY 30 MINUTES BEFORE A MEAL active Not Available Not Available No t Available zonisamid e 100 mg capsule 10/24 completed Medicati on ID: [id number] B rand Name: zonisami de Send Method: E-Prescr ibed Sub s Allowed: subs OK Medic ationGen ericName : zonisami de Not Available Not Available Not Available citalopra m 20 mg tablet TAKE 1 TABLET BY MOUTH DAILY active Not Available Not Available No t Available benzonata te 100 mg capsule TAKE 1 CAPSULE BY MOUTH 3 TIMES A DAY FOR 7 DAYS, DO NOT CRUSH OR CHEW active Not Available Not Available No t Available gabapenti n 300 mg capsule 2019 active Medicati on ID: [id number] B rand Name: gabapent in Send Method: E-Prescr ibed Sub s Allowed: subs OK Medic ationGen ericName : gabapent in Not Available Not Available Not Available sertralin e 25 mg tablet 07/13 completed Medicati on ID: [id number] D uration Value: 30 Brand Name: sertrali ne Send Method: E-Prescr ibed Sub s Allowed: subs OK Speci al Instruct ion: TK 1 T PO D Medica tionGene ricName: sertrali ne Not Available Not Available Not Available hydroxyzi ne HCl 25 mg tablet 07/13 completed Medicati on ID: [id number] D uration Value: 30 Brand Name: hydroxyz ine HCl Send Method: E-Prescr ibed Sub s Allowed: subs OK Speci al Instruct ion: TK 1 T PO HS Medic ationGen ericName : hydroxyz ine HCl Not Available Not Available Not Available norethind crystal acetate 1 mg-ethiny l estradiol 20 mcg tablet TAKE 1 TABLET BY MOUTH EVERY DAY CONTINUO USLY active Not Available Not Available No t Available gabapenti n 100 mg capsule 01/28 completed Medicati on ID: [id number] Dur ation Value: 30 Reason: () Brand Name: gabapent in Send Method: E-Prescr ibed Sub s Allowed: subs OK Speci al Instruct ion: INCREASE UTD TO 3 CS PO BID Medi cationGe nericNam e: gabapent in Not Available Not Available Not Available levofloxa jasvir 750 mg tablet TAKE 1 TABLET BY MOUTH EVERY 24 HOURS FOR 7 DAYS 10/24 completed Not Available Not Available Not Available albuterol sulfate HFA 90 mcg/actua tion aerosol inhaler INHALE 2 PUFFS EVERY 6 HOURS NEEDED FOR WHEEZING active Not Available Not Available No t Available Percocet 5 mg-325 mg tablet 1 tablet by mouth 02/12 completed Medicati on ID: [id number] Pre scribed By Name: Hai Andrade nd Name: Percocet Send Method: E-Prescr ibed Sub s Allowed: subs OK Medic ationGen ericName : Percocet Not Available Not Available Not Available sertralin e 50 mg tablet active Medicati on ID: [id number] B rand Name: sertrali ne Send Method: E-Prescr ibed Sub s Allowed: subs OK Medic ationGen ericName : sertrali ne Not Available Not Available Not Available doxycycli ne hyclate 100 mg tablet TAKE 1 TABLET BY MOUTH TWICE DAILY FOR 10 DAYS. REPLACES LEVAQUIN 10/24 completed Not Available Not Available Not Available amoxicill in 875 mg-potass ium clavulana te 125 mg tablet TAKE 1 TABLET BY MOUTH EVERY 12 HOURS FOR 7 DAYS 10/24 completed Not Available Not Available Not Available TobraDex 0.3 %-0.1 % eye drops,[place] pension 10/24 completed Medicati on ID: [id number] B rand Name: TobraDex Send Method: E-Prescr ibed Sub s Allowed: subs OK Speci al Instruct ion: Instill 3 drops in the affect ear BID for 14 days Med icationG enericNa me: TobraDex Not Available Not Available Not Available medroxypr ogesteron e 150 mg/mL intramusc ular syringe INJECT 1 ML INTRAMUS CULARLY ONCE EVERY 3 MONTHS 10/24 completed Not Available Not Available Not Available Ciprodex 0.3 %-0.1 % ear drops,[place] pension Apply 4 drop into left ear twice a day 12/19 completed Medicati on ID: [id number] D uration Value: 14 Prescri bed By Name: JENNA Rogers nd Name: Ciprodex Send Method: E-Prescr ibed Sub s Allowed: subs OK Speci al Instruct ion: 4 drops left ear BID x 14 days Med icationG enericNa me: Ciprodex Not Available Not Available Not Available Pulmicort Flexhaler 90 mcg/actua tion breath activated INHALE 2 PUFFS BY MOUTH TWICE A DAY active Not Available Not Available No t Available Saxenda 3 mg/0.5 mL (18 mg/3 mL) subcutane ous pen injector INJECT 0.6MG SUBCUTAN EOUSLY DAILY FOR 1 WEEK THEN 1.2MG DAILY FOR 1 WEEK,1.8 MG DAILY FOR 1 WEEK,2.4 MG DAILY FOR 1 WEEK, 3 MG DAILY THEREAFT ER 10/24 completed Not Available Not Available Not Available Breo Ellipta 200 mcg-25 mcg/dose powder for inhalatio n INHALE 1 PUFF BY MOUTH DAILY active Not Available Not Available No t Available Yolanda Rascon 01/12 completed Medicati on ID: [id number] D uration Value: 84 Brand Name: Yolanda Rascon Send Method: E-Prescr ibed Sub s Allowed: subs OK Medic ationGen ericName : Yolanda Rascon Not Available Not Available Not Available Emgality Pen 120 mg/mL subcutane ous pen injector USE 1 SYRINGE UNDER THE SKIN EVERY 30 DAYS active Not Available Not Available No t Available BD Karen 2nd Gen Pen Needle 32 gauge x 5/32 USE TO ADMINIST ER MEDICATI ON DIRECTED active Not Available Not Available No t Available Wegovy 2.4 mg/0.75 mL subcutane ous pen injector ADMINIST ER 2.4 MG UNDER THE SKIN WEEKLY active Not Available Not Available No t Available Wegovy 1.7 mg/0.75 mL subcutane ous pen injector INJECT 1.7 MG UNDER THE SKIN ONE DAY A WEEK active Not Available Not Available No t Available Airsupra 90 mcg-80 mcg/actua tion HFA aerosol inhaler INHALE 2 PUFFS BY MOUTH FOUR TIMES DAILY NEEDED active Not Available Not Available No t Available Vitals Date Recorded Body height Body mass index (BMI) Body weight Provider Name and Address Organization Details Last Updated DateTime 10/25/2023 147.32 cm 33.9 kg/m2 54390.96 g Luz Maria Kiser [facility] 10/25/2023 15:46:15 Social History None recorded. Functional Status None recorded. Mental Status None recorded. Family History Nothing Reported. Medical History No medical history recorded. Gynecological HistoryNo gynecological history recorded. 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 Ayde Pérez [id number] Ayde Pérez Notes Date Note Type Note Provider Name and Address Organization Details Recorded Time 10/25/2023 text/html 23-year-old female who had left transcanal tympanoplasty with me back in 2013. Patient last seen in late 2021 for evaluation of otorrhea and development of granulation polyp. 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 3-month follow-up visit was recommended but this did not occur. She comes in today reporting no problems with either ear over the past couple of years. She thinks her hearing is fine. CHERYL WATSON MD [address] [place] [address], [place], [address], [facility] - [facility] 10/25/2023 15:56:07 OBGyn Episode No OBEpisode recorded.
--- OUTSIDE RECORDS SUMMARY | 2025-02-10 19:11 | XMS_ITS ---
Author Name [facility] Organization Unknown History of Medication Use Medication Directions Dispensed Refills Start Date End Date Status BREO ELLIPTA 200-25 mcg/dose Disk with Device 07/17/19 24 active WEGOVY 1.7 mg/0.75 mL Pen Injector 07/06/19 24 active JUNEL 03/17, , 1-20 mg-mcg per tablet TAKE 1 TABLET BY MOUTH EVERY DAY CONTINUOUSLY 06/30/19 24 active citalopram (CELEXA) 20 MG tablet Take 20 mg by mouth 05/14/19 24 active fluticasone furoate-vilanteroL 200-25 mcg/dose Disk with Device Inhale into the lungs 04/09/19 24 024 active doxycycline (VIBRA-TABS) 100 MG tablet TAKE 1 TABLET BY MOUTH TWICE DAILY FOR 10 DAYS. REPLACES LEVAQUIN 01/30/20 024 aborted citalopram (CELEXA) 20 MG tablet START ON 01/14 WITH 1/2 TABLET BY MOUTH IN AM ON 01/21, INCREASE TO 1 TABLET BY MOUTH IN AM 12/29/19 23 024 active budesonide (PULMICORT FLEXHALER) 90 mcg/actuation inhaler Inhale into the lungs 12/23/19 23 024 active benzonatate (TESSALON) 100 MG capsule TAKE 1 CAPSULE BY MOUTH 3 TIMES A DAY FOR 7 DAYS, DO NOT CRUSH OR CHEW 12/20/19 23 023 aborted sertraline (ZOLOFT) 100 MG tablet Take 200 mg by mouth 12/06/19 23 023 aborted amoxicillin-clavulanate (AUGMENTIN) 875-125 mg per tablet Take 875 mg by mouth 2 (two) times daily 11/27/19 23 11/22/2 023 aborted LOESTRIN 03/17, , 1-20 mg-mcg per tablet Take 1 tablet by mouth 11/08/19 aborted levoFLOXacin (LEVAQUIN) 750 MG tablet TAKE 1 TABLET BY MOUTH EVERY 24 HOURS FOR 7 DAYS 10/26/19 aborted albuterol (PROVENTIL) 2.5 mg/3mL (0.083 %) nebulizer solution Inhale 3 mL by nebulization route. 09/21/19 active azithromycin (ZITHROMAX) 250 MG tablet TAKE 2 TABLETS (500 MG) BY ORAL ROUTE ONCE DAILY FOR 1 DAY THEN 1 TABLET (250 MG) BY ORAL ROUTE ONCE DAILY FOR 4 DAYS 09/21/19 aborted ipratropium (ATROVENT) 0.02 % nebulizer solution Inhale 2.5 mL every 6 hours by inhalation route. 09/21/19 aborted predniSONE (DELTASONE) 20 MG tablet TAKE 2 TABLETS BY MOUTH EVERY DAY FOR 5 DAYS 09/21/19 aborted methylPREDNISolone (MEDROL DOSEPACK) 4 mg tablet TAKE 6 TABLETS ON DAY 1 DIRECTED ON PACKAGE AND DECREASE BY 1 TAB EACH DAY FOR A TOTAL OF 6 DAYS 09/16/19 aborted topIRAMATE (TOPAMAX) 25 MG tablet Take 25 mg by mouth 2 (two) times daily 09/07/19 aborted SAXENDA 3 mg/0.5 mL (18 mg/3 mL) Pen Injector INJECT 0.6MG SUBCUTANEOUSLY DAILY FOR 1 WEEK THEN 1.2MG DAILY FOR 1 WEEK,1.8MG DAILY FOR 1 WEEK,2.4 MG DAILY FOR 1 WEEK, 3 MG DAILY THEREAFTER 09/06/19 active budesonide/formoterol fumarate (BUDESONIDE-FORMOTEROL INHL) See Instructions, 1 puffs Inhalation 2 times a day. May take an additional puff every 4 hrs as needed. Max 6 puffs daily, # 3 each, Refills 4, Tot. Refills 4, Maintenance, 03/16/23 15:39:00 EST, Instructions Replace Required Details, Route to Pharmacy... 09/01/19 23 024 active medroxyPROGESTERone 150 mg/mL Syringe INJECT 1 ML INTRAMUSCULARLY ONCE EVERY 3 MONTHS 08/15/19 024 aborted WEGOVY 0.25 mg/0.5 mL Pen Injector 0.25 mg 08/15/19 23 023 aborted acetaminophen (TYLENOL) tablet 1,000 mg 1,000 mg (12 mg/kg), Oral, Once, On Sun05/23/22 at 1700, For 1 doseNot to exceed 75mg/kg/day or 4000mg/day of acetaminophen, whichever is less 05/24/19 023 completed metoclopramide (REGLAN) injection 10 mg 10 mg (0.12 mg/kg), Intramuscular, Once, On Sun05/23/22 at 1700, For 1 dose 05/24/19 23 023 completed TiZANidine (ZANAFLEX) 4 MG capsule 1 capsule as needed Orally Once a day 02/22/20 023 aborted lidocaine (LMX) 4 % cream Topical (Top), Once, On Sun02/21/22 at 1800, For 1 doseApply to: over RLQ area of redness/abscess 02/22/20 022 completed ketorolac (TORADOL) injection 15 mg 15 mg (0.18 mg/kg), Intramuscular, Once, On Sun05/23/22 at 1700, For 1 dose 11/16/19 023 completed 0.9% sodium chloride IV bolus 1,000 mL 1,000 mL (11.3 mL/kg), Intravenous, at 2,000 mL/hr, Once, On Sun11/15/21 at 1330, For 1 dose 11/16/19 22 022 completed diphenhydrAMINE (BENADRYL) capsule 25 mg 25 mg (0.282 mg/kg), Oral, Once, On Sun11/15/21 at 1330, For 1 dose 11/16/19 22 022 completed prochlorperazine (COMPRO) 10 mg in 0.9% sodium chloride IV 10 mg (0.113 mg/kg), Intravenous, Once, On Sun11/15/21 at 1330, For 1 doseDo not use in patients less than 2 years old 11/16/19 022 completed buffered 0.9% lidocaine with sod phosphate syringe 0.2 mL 0.2 mL, Subcutaneous, 4 times daily PRN, Other, venipuncture (IV or phlebotomy), Starting on Sun11/15/21 at 1318Please use the 1 mL buffered lidocaine syringe with the J-tip systems for administration. 11/16/19 active lidocaine (LMX) 4 % cream 2.5 g 2.5 g, Topical (Top), 4 times daily PRN, Venipuncture, Apply for 30 minutes prior to procedure, Starting on Sun11/15/21 at 1318Apply to: affected area 11/16/19 active fluticasone propionate (ALLERGY RELIEF, FLUTICASONE,) 50 mcg/actuation nasal spray See Instructions, SHAKE LIQUID AND USE 1 SPRAY IN EACH NOSTRIL TWICE DAILY, # 16 Gm, 11 Refills, [id number], 30, SHAKE LIQUID AND USE 1 SPRAY IN EACH NOSTRIL TWICE DAILY, 148, cm, 08/01/21 8:05:00 EDT, Height, 78.5, kg, 11/20/19 8:58:... 09/01/19 023 aborted topiramate 25 mg capsule,sprinkle,ER 24hr Take 50 mg by mouth 07/21/19 023 aborted ondansetron (ZOFRAN) 8 MG tablet 1 tablet as needed Orally Once a day 07/21/19 active acetaminophen (OFIRMEV) 1,000 mg/100 mL (10 mg/mL) Solution 0 Refills, Maintenance, 06/28/21 10:45:00 EDT 06/29/19 023 aborted acetaminophen (OFIRMEV) 1,000 mg/100 mL (10 mg/mL) Solution 0 Refills, Maintenance, 06/28/21 10:45:00 EDT 06/29/19 active sertraline (ZOLOFT) 50 MG tablet 1 tablet Orally Once a day 05/24/19 22 023 aborted topiramate 100 mg Capsule, Ext Release 24 hr Take 150 mg by mouth 02/24/20 21 023 aborted topiramate 100 mg Capsule, Ext Release 24 hr Take 150 mg by mouth 02/24/20 21 active topiramate 100 mg Capsule, Ext Release 24 hr Take 150 mg by mouth 02/24/20 active topIRAMATE (TOPAMAX) 25 MG tablet Dose: 25 mg, Dose Amount: 1 tab, PO, QPM, Dispense Quantity: 30 tab, Refills: 5, Entered: 02/01/21 13:43:00 [id number] 02/02/20 active sertraline (ZOLOFT) 50 MG tablet Take 100 mg by mouth at bedtime 01/14/20 21 023 aborted sertraline (ZOLOFT) 50 MG tablet Take by mouth 01/14/20 active sertraline (ZOLOFT) 50 MG tablet Take 100 mg by mouth at bedtime 01/14/20 21 active sertraline (ZOLOFT) 50 MG tablet Take 100 mg by mouth at bedtime 01/14/20 21 active traMADoL (ULTRAM) 50 mg tablet TK 1 T PO Q 8 H PRF SEVERE PAIN 11/17/19 20 023 active traMADoL (ULTRAM) 50 mg tablet TK 1 T PO Q 8 H PRF SEVERE PAIN 11/17/19 20 active traMADoL (ULTRAM) 50 mg tablet TK 1 T PO Q 8 H PRF SEVERE PAIN 11/17/19 20 active zonisamide (ZONEGRAN) 100 MG capsule TK 1 C PO BID 11/17/19 20 active norflurane-pentafluorop ropane (PAINEASE) spray 1 application 1 application, Topical (Top), Every 5 min PRN, Other, venipuncture (IV or phlebotomy), Starting on Sun11/15/21 at 1318Apply to: affected area 09/03/19 20 active tiZANidine (ZANAFLEX) 4 MG tablet Take by mouth daily as needed 05/05/19 18 active tiZANidine (ZANAFLEX) 4 MG tablet Take by mouth daily as needed 05/05/19 18 active tiZANidine (ZANAFLEX) 4 MG tablet Take by mouth daily as needed 05/05/19 18 active ondansetron (ZOFRAN) 4 MG tablet 8 mg 04/21/19 17 023 aborted ondansetron (ZOFRAN) 4 MG tablet 8 mg 04/21/19 17 active ondansetron (ZOFRAN) 4 MG tablet TK 1 T PO Q 8 H PRF [place]LSON OR NAUSEA 04/21/19 17 active ondansetron (ZOFRAN) 4 MG tablet 8 mg 04/21/19 17 active sertraline (ZOLOFT) 100 MG tablet 150 mg 11/20/19 16 023 aborted sertraline (ZOLOFT) 100 MG tablet 150 mg 11/20/19 16 active albuterol (PROVENTIL HFA;VENTOLIN HFA) 90 mcg/actuation inhaler INHALE 2 PUFFS EVERY 6 HOURS NEEDED FOR WHEEZING 024 aborted omeprazole (PRILOSEC) 40 MG capsule TAKE 1 CAPSULE BY MOUTH DAILY 30 MINUTES BEFORE A MEAL 024 aborted naproxen (NAPROSYN) 500 MG tablet 1 tablet with food or milk as needed Orally every 12 hrs 023 active ondansetron (ZOFRAN) 4 MG tablet 1 tablet 023 aborted topIRAMATE (TOPAMAX) 12.5 MG tablet Topiramate 023 aborted AIRSUPRA 90-80 mcg/actuation HFA Aerosol Inhaler INHALE 2 PUFFS BY MOUTH FOUR TIMES DAILY NEEDED active EMGALITY PEN 120 mg/mL Pen Injector INJECT 120 MG UNDER THE SKIN ONCE PER MONTH X90 DAYS active gabapentin (NEURONTIN) 300 MG capsule Take 300 mg by mouth 2 (two) times daily active ibuprofen (MOTRIN) 600 MG tablet Take by mouth every 6 (six) hours as needed for Pain active naproxen (NAPROSYN) 500 MG tablet Take by mouth 2 (two) times daily as needed (with a meal) active naproxen (NAPROSYN) 500 MG tablet Take by mouth 2 (two) times daily as needed (with a meal) active ondansetron (ZOFRAN) 4 MG tablet 1 tablet active Allergies Allergen Reaction Severity Comment Documented Date Source Statu s DOXYCYCLINE 07/18/2023 [facility] active LATEX OTHER (SEE COMMENTS) Precaution 12/08/2015 [facility] active Problems Problem Status Onset Date Problem Type Date of Resolution Source Presence of programmable ventriculoperitoneal shunt active 2015-04-28 1 ProblemAct [facility] Post-operative nausea and vomiting active 2017-10-28 5 ProblemAct [facility] 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 5 ProblemAct [facility] Anxiety active 2019-10-29 5 ProblemAct [facility] Transition of care performed with sharing of clinical summary active 2019-07-28 7 ProblemAct [facility] Other headache syndrome active 2019-09-28 6 ProblemAct [facility] Presence of programmable ventriculoperitoneal shunt active EncounterDiagnosisAct [facility] C Chronic nonintractable headache, unspecified headache type active EncounterDiagnosisAct [facility] Encounters Encounter Type Encounter Reason Primary Diagnosis Location Date Ambulatory Presence of cerebrospinal fluid drainage device Presence of cerebrospinal fluid drainage device [facility] [place] 10/15/2024 Ambulatory Hydrocephalus Hydrocephalus [facility] 04/16/2024 Ambulatory Hydrocephalus Hydrocephalus [facility] 01/10/2024 Ambulatory Headache, unspecified Headache, unspecified [facility] 01/10/2024 Ambulatory Headache, unspecified Headache, unspecified [facility] 01/10/2024 Ambulatory Headache, unspecified Headache, unspecified [facility] 01/02/2024 Ambulatory Presence of cerebrospinal fluid drainage device Presence of cerebrospinal fluid drainage device [facility] 07/27/2023 Ambulatory Communicating hydrocephalus Communicating hydrocephalus [facility] 07/18/2023 Ambulatory Presence of cerebrospinal fluid drainage device Presence of cerebrospinal fluid drainage device [facility] 01/17/2023 Ambulatory [facility] 05/23/2022 Ambulatory [facility] 02/21/2022 Ambulatory [facility] 11/15/2021 Ambulatory [facility] 11/15/2021 Ambulatory [facility] 06/27/2021 Ambulatory [facility] 01/06/2021 Care Team Organization Name Specialty Phone Email Start Date End Da te [facility] ROSALVA DE OLIVEIR[facility] 01/17/2023 11/15/19 [facility] DE [facility] Primary [facility] 01/17/202303/19/2022 [facility] ROSALVA DE OLIVEIRA Primary Care 11/16/2021
--- OUTSIDE RECORDS SUMMARY | 2025-02-10 19:11 | XMS_ITS | Clinical Summary ---
Author Organization [facility] Address [address] [place] [address] Care Team Providers Care Payment Poster Name Role Phone Mandeep Don MD Primary Care Provider [phone] Source Comments Please note that some or all of the patient's information could have additional privacy protections. State laws allow health care providers to render certain types of treatment to minors without parental consent. Please do not assume that this information can be shared solely by obtaining just the consent of the patient's parent/guardian. Please determine if all or part of the patient's care was rendered without parent/guardian involvement. And, if so, obtain the minor's consent prior to disclosure.[facility] Allerg[facility] Active Allergy Reactions Criticality Noted Date Comments Latex Other (See Comments) 12/08/2015 Precaution Medications tiZANidine (ZANAFLEX) 4 MG tablet Take by mouth daily as needed 05/04/2017 Active traMADoL (ULTRAM) 50 mg tablet 11/17/2019 Active EMGALITY PEN 120 mg/mL Pen Injector Active naproxen (NAPROSYN) 500 MG tablet Active ondansetron (ZOFRAN) 8 MG tablet 07/20/2021 Active AIRSUPRA 90-80 mcg/actuation HFA Aerosol Inhaler Active BREO ELLIPTA 200-25 mcg/dose Disk with Device 07/17/2023 Ac tive JUNEL , 1-20 mg-mcg per tablet 06/30/2023 Active citalopram (CELEXA) 20 MG tablet Take 20 mg by mouth 05/14/2023 Active WEGOVY 1.7 mg/0.75 mL Pen Injector 07/06/2023 Active Active Problems Problem Noted Date Diagnosed Date Anxiety 11/21/2019 Other headache syndrome 10/22/2019 Transition of care performed with sharing of clinical summary 08/13/2019 Post-operative nausea and vo miting: consider pre-medicating with scopolamine patch & zofran 11/20/2017 Communicating hydrocephalus 04/12/2017 Overview (04/12/2017): Added automatically from request for surgery [id number] Presence of programmable ventriculoperitoneal sh unt 05/17/2015 Overview (03/06/2018): R occipital shunt 2.0 on 11/28/2017 Chronic nonintractable headache, unspecified hea dache type Resolved Problems Problem Noted Date Diagnosed Date Resolved Date Shunt malfunction, initial encounter 11/18/2017 08/13/2019 Hydrocephalus 07/24/2017 08/13/2019 Obstructive hydrocephalus 07/18/2017 Overview (07/18/2017): Added automatically from request for surgery [id number] Family History Medical History Relation Name Comments Clotting disorder Mother clot s/p k nee surgery Anesthesia problems Neg Hx Bleeding disorder Neg Hx Relation Name Status Comments Father Stint put in 2 weeks ago in Heart Mother Social History Tobacco Use Types Packs/Day Years Used Date Smoking Tobacco: Never Passive Smoke Exposure: Never Smokeless Tobacco: Never Tobacco Cessation:Counseling Given: Not Answered Alcohol Use Standard Drinks/Week Comments Not Asked 0 (1 standard drink = 0.6 oz pur e alcohol) Comments No Sex and Gender Information Value Date Recorded Sex Assigned at Not on file Legal Sex Female 2:22 AM EST Gender Identity Not on file Sexual Orientation Not on file Last Filed Vital Signs Vital Sign Reading Time Taken Comments Blood Pressure 147/98 10/15/2024 9:29 AM EDT Pulse 87 10/15/2024 9:29 AM EDT Temperature 36.7 C (98.1 F) 05/23/2022 4:41 PM EDT Respiratory Rate 17 05/23/2022 4:41 PM EDT Oxygen Saturation 97% 05/23/2022 4:41 PM EDT Inhaled Oxygen Concentration - - Weight 70.5 kg (155 lb 6.8 oz) 10/15/2024 9:29 A M EDT Height 151.3 cm (4' 11.57 ) 10/15/2024 9:29 AM E DT Body Mass Index 30.8 10/15/2024 9:29 AM EDT Plan of Treatment Upcoming Encounters Date Type Department Care Team (Late st Contact Info) Description 10/14/2025 9:00 AM EDT Office Visit [facility] Department of Neurosurgery [address] [place] [address] Amish Hanna MD [address] [place] [phone] Health Maintenance Due Date Last Done Comments DTaP/TDAP/TD VACCINES (1 - Tdap) 06/18/2006 ADOLESCENT HIV SCREENING 06/18/2012 COVID-19 Vaccine ( season) 2024 08/25/2021, 01/24/2021, 07/19/2020, Additional history exists INFLUENZA (#1) 2024 NIRSEVIMAB VACCINES UNDER 8 MONTHS Aged Out No longer eligible based on patient's age to complete this topic Medical Devices Implanted Type Area Aluminum Siding Applicator Device Identifier Shelf Expiration Date Model / Serial / Lot Ccmcvol- Leibinger 1.5 X 5mm Screw/[id number] - [id number] Implanted:Qty: 1 on 11/19/2017 by Virgilio Mcmanus MD at [facility] Screw [id number] / / Shunt Programable - Strata Regular/[id number] - [id number] Implanted:Qty: 1 on 11/19/2017 by Virgilio Mcmanus MD at [facility] Tube _Medtronic 03/28/2020 [id number] / / [id number] Orion Peritoneal Catheter/ [id number] - [id number] Implanted:Qty: 1 on 11/19/2017 by Virgilio Mcmanus MD at [facility] Tube _Medtronic 09/18/2018 [id number] / / [id number] Codman Microsensor Skull [place] Kit/ [id number] - [id number] Implanted:Qty: 1 on 07/24/2017 by Cade Lindsey MD at [facility] 04/25/2022 [id number] / / [id number] Insurance [facility] H[facility] Care Teams Payment Poster Relationship Specialty Start Date End Date Mandeep Don MD [phone] [place] [id number] PCP - General 11/17/18
--- OUTSIDE RECORDS SUMMARY | 2025-02-10 19:12 | XMS_ITS | Clinical Summary ---
Author Organization [facility] sp[facility] Address [address] [place] [address] Phone Care Team Providers Care Enrollment Management Manager Name Role Phone Mandeep Don MD Primary Care Provider [phone] Addison Sofia Unavailable [phone] Mandeep Don MD Unavailable Allergies Active Allergy Reactions Criticality Noted Date Comments Latex 05/06/2012 Reaction Type from PowerChart: Allergy; Pollen Extracts Unknown 01/01/2024 Medications acetaminophen (Tylenol 8 Hour) 650 mg ER tablet Take 650 mg by mouth every 8 hours if needed. 5 Active ondansetron (Zofran) 8 mg tabletIndicatio ns:Chronic tension-type headache, not intractable Take 8 mg = 1 tablet by mouth 2 times a day as needed for nausea (Migraine Headache). 20 tablet 3 4 Active semaglutide (WEGOVY SUBQ) Active Airsupra 90-80 mcg/actuation HFA aerosol inhaler INHALE 2 PUFFS BY MOUTH FOUR TIMES DAILY NEEDED Active citalopram (CeleXA) 20 mg tablet Take 20 mg by mouth 1 time each day. 4 Active Breo Ellipta 200-25 mcg/dose inhaler INHALE 1 PUFF BY MOUTH DAILY Inhalation for 30 Days 4 Active lansoprazole (Prevacid) [address] capsule Take 30 mg by mouth in the morning. Take before meals. Active semaglutide, weight loss, (Wegovy) 0.25 mg/0.5 mL pen injector 0.25 mg. 3 Active Wegovy 1.7 mg/0.75 mL pen injector INJECT 1.7 MG UNDER THE SKIN WEEKLY Active Wegovy 2.4 mg/0.75 mL pen injector ADMINISTER 2.4 MG UNDER THE SKIN WEEKLY for 28 4 Active tiZANidine (Zanaflex) 4 mg tabletIndicatio ns:Intractable migraine without aura and with status migrainosus Take 4 mg = 1 tablet by mouth as needed at bedtime for muscle spasms (Pain). 30 tablet 2 4 Active traMADol 50 mg tabletIndicatio ns:Migraine without aura and without status migrainosus, not intractable Take 50 mg = 1 tablet by mouth every 6 hours if needed for pain: moderate/severe (score 5-10) (migraine). 3 tablet 4 5 Active amLODIPine 2.5 mg tablet Take 2.5 mg by mouth. 5 Active naloxone 4 mg/0.1 mL nasal sprayIndication s:Intractable chronic migraine without aura and without status migrainosus Administer 4 mg = 1 spray into affected nostril(s) 1 time if needed for opioid reversal. May repeat every 2-3 minutes if needed, alternating nostrils, until medical assistance becomes available. 2 each 5 026 Active rimegepant (Nurtec ODT) 75 mg tablet,disinteg ratingIndicatio ns:Intractable chronic migraine without aura and without status migrainosus Take 75 mg by mouth daily as needed (at the first sign of migraine pain). Maximum: 75 mg per 24 hours. Not to take more than 3 days per week. Do not take within 24 hours of a triptan when using nurtec for rescue therapy. 8 tablet 11 5 Active galcanezumab (Emgality Pen) 120 mg/mL auto-injectorIn dications:Migra ine without aura and without status migrainosus, not intractable Inject 120 mg = 1 Syringe under the skin every 30 days. 1 each 5 026 Active lidocaine 5 % transdermal patchIndication s:Abdominal pain, unspecified abdominal location Place 1 patch over 12 hours on the skin daily as needed for pain: moderate/severe (score 5-10) (abdominal pain). PLACE 1 PATCH TOPICALLY FOR 12 HOURS ON THEN 12 HOURS OFF TO PAINFUL AREAS ON ABDOMEN 30 patch 1 5 Active galcanezumab (Emgality Pen) 120 mg/mL auto-injectorIn dications:Migra ine without aura and without status migrainosus, not intractable Inject 120 mg = 1 Syringe under the skin every 30 days. 1 each 4 025 Discontin ued(Reord er) lidocaine 5 % transdermal patch PLACE 1 PATCH TOPICALLY FOR 12 HOURS ON THEN 12 HOURS OFF TO PAINFUL AREAS ON ABDOMEN 5 025 Discontin ued(Reord er) Hospital, Clinic, or Other Facility Administered Medication Ordered Dose Route Frequency Start Date End Date Status methylPREDNISolone acetate (DEPO-Medrol) injection 50 mgIndications:Intract able chronic migraine without aura and without status migrainosus 50 mg IM Once PRN 11/12/2024 01/29/2025 Discontinued EPINEPHrine (Epipen) injection 0.3 mgIndications:Intract able chronic migraine without aura and without status migrainosus 0.3 mg IM Once PRN 11/12/2024 01/29/2025 Discontinued diphenhydrAMINE (Benadryl) tablet 50 mgIndications:Intract able chronic migraine without aura and without status migrainosus 50 mg oral Once PRN 11/12/2024 01/29/2025 Discontinued cetirizine (ZyrTEC) tablet 10 mgIndications:Intract able chronic migraine without aura and without status migrainosus 10 mg oral Once PRN 11/12/2024 01/29/2025 Discontinued albuterol 2.5 mg /3 mL (0.083 %) nebulizer solution 6 mLIndications:Intract able chronic migraine without aura and without status migrainosus 6 mL nebu Once PRN 11/12/2024 01/29/2025 Discontinued Active Problems Problem Noted Date Diagnosed Date History of snoring 01/01/2024 Overview (01/01/2024): Tonsils and adnoids removed Asthma 01/01/2024 Overview (01/01/2024): childhood Constipation 01/01/2024 Depression, major, recurrent, moderate Developmental breast asymmetry 01/01/2024 Elevated ALT measurement 01/01/2024 Hearing loss in left ear 01/01/2024 History of hydrocephalus as a child 01/01/2024 History of disorder of central nervous system Myofascial pain 01/01/2024 Perforation of tympanic membrane 01/01/2024 Overview (01/01/2024): Left Obesity 01/01/2024 Severe obesity (BMI 35.0-39.9) with comorbidity 01/01/2024 Chronic nonintractable headache 01/01/2024 Migraine without aura 01/01/2024 Right lower quadrant abdominal pain 01/01/2024 Depression 07/26/2022 Migraine 07/26/2022 Anxiety 11/21/2019 Other headache syndrome 10/22/2019 Post-operative nausea and vomiting 11/20/2017 Communicating hydrocephalus (CMS/HCC) 04/12/2017 Overview (01/01/2024): Added automatically from request for surgery [id number] Presence of programmable ventriculoperitoneal sh unt 05/17/2015 Overview (01/01/2024): R occipital shunt 2.0 on 11/28/2017 Chronic brain-hydrocephalus syndrome (CMS/HCC) 0 04/18/2015 Overview (06/27/2023): 11/05/2013 13:Juan Alberto - TAVO MOLINA MD Added by [facility] Generalized anxiety disorder 04/18/2015 Overview (06/27/2023): 11/05/2013 13:TAVO MANLEY MD Added by [facility] Headache 04/14/2014 History of headache 04/14/2014 Chronic tension type headache 11/05/2013 Overview (06/27/2023): 11/05/2013 13:TAVO MANLEY MD Added by [facility] Concussion without loss of consciousness 09/10/2 014 Overview (06/27/2023): 11/05/2013 13:TAVO MANLEY MD Added by [facility] Occipital neuralgia 11/05/2013 Overview (06/27/2023): 11/05/2013 13:TAVO MANLEY MD Added by [facility] Muscle tension pain 11/05/2013 Overview (06/27/2023): 11/05/2013 13:TAVO MANLEY MD Added by [facility] Obsessive compulsive disorder 07/02/2012 Resolved Problems Problem Noted Date Diagnosed Date Resolved Date Thoughts of self harm 03/23/20222023 Transition of care performed with sharing of clinical summary 08/13/2019 01/01/2024 Encounters Date Type Department Care Team Description 01/26/2025 Prior Authorization [facility] [address] [place] [address] Cindy Jang lidocaine 5% patch 01/21/2025 Telephone [facility] [address] [place] [address] Christie Pearce CNP 01/15/2025 Prior Authorization [facility] [address] [place] [address] Maria De Jesus Cesar 01/14/2025 Orders Only [facility] [address] [place] [address] Akilah Hernandez CNP Migraine without aura and without status migrainosus, not intractable 11/13/2024 Prior Authorization [facility] [address] [place] [address] Cindy Jang rescue dosing 11/12/2024 10:00 AM EDT Procedure Visit [facility] [address] [place] [address] Christie Pearce CNP Intractable chronic migraine without aura and without status migrainosus 11/12/2024 Travel from Last 3 Months Family History Medical History Relation Name Comments Alcohol abuse Maternal Grandfather Migraines Maternal Grandmother Cancer Paternal Grandmother Relation Name Status Comments Maternal Grandfather Maternal Grandmother Paternal Grandmother Social History Tobacco Use Types Packs/Day Years Used Date Smoking Tobacco: Never Assessed Comments Unknown Sex and Gender Information Value Date Recorded Sex Assigned at Not on file Legal Sex Female 4:20 PM EDT Gender Identity Not on file Sexual Orientation Not on file Last Filed Vital Signs Vital Sign Reading Time Taken Comments Blood Pressure 153/92 11/12/2024 12:00 PM EDT Repeat BP 137/87 Pulse 102 11/12/2024 12:00 PM EDT Temperature - - Respiratory Rate - - Oxygen Saturation 99% 11/12/2024 12: 00 PM EDT Inhaled Oxygen Concentration - - Weight 69.2 kg (152 lb 8.9 oz) 11/12/2024 12:00 PM EDT Height 149 cm (4' 10.66 ) 03/05/2019 11 :16 AM EST Body Mass Index 31.17 03/05/2019 11:16 AM EST Plan of Treatment Upcoming Encounters Date Type Department Care Team (Late st Contact Info) Description 02/17/2025 10:00 AM EST Procedure Visit [facility] [address] [place] [address] Aurelia Larsen, MARSHMALLOW MAKER [address] [place] [address] Health Maintenance Due Date Last Done Comments Chlamydia and Gonorrhea Screening 1999 HIV Screening 1999 Anemia Screening 2011 Hepatitis C Screening 06/18/2017 Pneumococcal Vaccine: Pediatrics (0 to 5 Years) and At-Risk Patients (6 to 49 Years) (1 of 2 - PCV) 06/18/2018 01/16/2001, 03/27/2000, 1999, Additional history exists COVID-19 Vaccine ( season) 2024 12/07/2023, 08/25/2021, 01/24/2021, Additional history exists DTaP/Tdap/Td Vaccines (8 - Td or Tdap) 08/25/2030 08/25/2020, 11/16/2010, 07/16/2003, Additional history exists Hepatitis B Vaccines Completed 07/26/2000, 03/27/2000, 1999 HIB Vaccines Completed 08/08/2000, 11/0 02/1999, 1999, Additional history exists IPV Vaccines Completed 07/16/2003, 05/28, 1999, Additional history exists MMR Vaccines Completed 06/22/2004, 08/08/2000 Varicella Vaccines Completed 11/20/2011, 2000 HPV Vaccines Completed 02/14/2012, 10/28, 11/16/2010 Meningococcal Vaccine Completed 07/27/2015, 012 Influenza Vaccine Completed 10/15/2024, , 12/01/2021, Additional history exists Hepatitis A Vaccines Aged Out No long er eligible based on patient's age to complete this topic Meningococcal B Vaccine Aged Out No l onger eligible based on patient's age to complete this topic Rotavirus Vaccines Aged Out No longer eligible based on patient's age to complete this topic Procedures Procedure Name Priority Date/Time Associated Diagnosis Comments HEAD/FACE/JAW BOTULINUM INJECTION Routine 11/12/2024 10:44 AM EDT Intractable chronic migraine without aura and without status migrainosus from Last 3 Months Results * HEAD/FACE/JAW BOTULINUM INJECTION (11/12/2024 10:44 AM EDT) Christie Dennison CNP - 11/12/2024 10:44 AM EDT Christie Pearce CNP 11/13/2024 9:55 AM Botulinum Injection Date/Time: 11/12/2024 10:44 AM Performed by: Christie Pearce CNP Authorized by: Christie Pearce CNP Consent: Consent obtained: Written Consent given by: Patient Risks discussed: Poor cosmetic result, pain, bleeding, infection, weakness and dysphagia Alternatives discussed: No treatment and alternative treatment Procedure details: Diluted by: Preservative free saline Total units available: 200 Right frontalis: 10 units divided amongst 2 site(s) Left frontalis: 10 units divided amongst 2 site(s) Right cotton tipper: 5 units divided amongst 1 site(s) Left cotton tipper: 5 units divided amongst 1 site(s) Procerus (midline): 5 units divided amongst 1 site(s) Right occipitalis: 15 units divided amongst 3 site(s) Left occipitalis: 15 units divided amongst 3 site(s) Right cervical paraspinal: 5 units divided amongst 1 site(s) Left cervical paraspinal: 5 units divided amongst 1 site(s) Right trapezius: 15 units divided amongst 3 site(s) Left trapezius: 15 units divided amongst 3 site(s) Right temporalis: 20 units divided amongst 4 site(s) Left temporalis: 20 units divided amongst 4 site(s) Total units injected: 145 Total units wasted: 55 Post-procedure details: Patient tolerance of procedure: Tolerated with difficulty Comments: Jon required multiple breaks due to feeling nauseous and dizzy. At the conclusion of the procedure she rested, drank gatorade and returned to baseline. 5 units per bilateral cervical paraspinal held due to placement of DOOR CLAMP OPERATOR shunt and shunt tubing Christie Pearce MARSHMALLOW MAKER IN CLINIC/BEDSIDE OR DERABLES Final Result from Last 3 Months Insurance Care Teams Enrollment Management Manager Relationship Specialty Start Date End Date Mandeep Don MD [address] [place] [id number] PCP - General 06/22/23 Addison Sofia [address] [place] [address] PCP - Insurance PCP 10/11/22 Mandeep Don MD [address] [place] [address] PCP - Clinical PCP 02/17/19
== END 2025-02-10 16:04 | disposition home or self-care (01) ==
PROVIDERS: PCP Internal Medicine; Referring Provider Nurse Practitioner Adult Health; Visit Provider Nurse Practitioner Family
DX: J45.909 Unspecified asthma, uncomplicated (principal); Z91.09 Other allergy status, other than to drugs and biological substances
CPT/HCPCS: 99204

== ENCOUNTER 2025-02-11 14:37 | Outpatient (REF) | payer OTHER, SELFPAY ==
--- OUTSIDE RECORDS SUMMARY | 2023-08-13 05:15 | XMS_ITS ---
Author Organization [facility] Address [address] [place] [address] Care Team Providers Care College Athletic Director Name Role Phone Florencia BRIONES, Mandeep Primary Care Provider UnavailJolie Connell [phone] Encounters Encounter Location Date Provider Diagnosis [facility] [address] [place] [address] 08/13/2023 Jolie Downing Plan Of Treatment No Information Progress Notes * Maged LALB:2000 (24 yo F)Acc No.[id number]:08/13/2023 PROGRESS NOTE Patient: Ayde MONTOYA Provider: Yanira Downing DPM :2000 A ge:23 Y S ex:Female Date:08/13/2023 Address:[address] [place] [address] rodr[address] [id number] Pcp:Mandeep Don MD Subjective: * Chief Complaints: * * Medical History: Objective: * Vitals: Assessment: Plan: * Treatment: * Images: * The named appointment provid er may or may not be the originator of this progress note, and it is not deemed complete until electronically signed by the appointment provider. Sign off status: Pending * Provider: Yanira Downing DPM Date: 0 08/13/2023 Generated for Printi ng/Faxing/eTransmitting on: 1 04/14/2024 07:32 PM EST
--- OUTSIDE RECORDS SUMMARY | 2023-08-20 05:45 | XMS_ITS ---
Author Organization [facility] Address [address] [place] [address] Care Team Providers Care University Relations Director Name Role Phone Florencia BRIONES, Mandeep Primary Care Provider UnavailJolie Connell [phone] Encounters Encounter Location Date Provider Diagnosis [facility] [address] [place] [address] 08/20/2023 Jolie Downing Plan Of Treatment No Information Progress Notes * Maged LALB:2000 (24 yo F)Acc No.[id number]:08/20/2023 PROGRESS NOTES Patient: Ayde MONTOYA Provider: Yanira Downing DPM :2000 A ge:23 Y S ex:Female Date:08/20/2023 Address:[address] [place] [address] ro[address] [id number] Pcp:Mandeep Don MD Subjective: * Chief Complaints: * * Medical History: Objective: * Vitals: Assessment: Plan: * Treatment: * Images: * The named appointment provid er may or may not be the originator of this progress note, and it is not deemed complete until electronically signed by the appointment provider. Sign off status: Pending * Provider: Yanira Downing DPM Date: 0 08/20/2023 Generated for Printi ng/Faxing/eTransmitting on: 1 04/14/2024 07:33 PM EST
--- OUTSIDE RECORDS SUMMARY | 2023-09-06 08:45 | XMS_ITS ---
Author Organization [facility] Address [address] [place] [address] Care Team Providers Care Inspector Screen Printing Name Role Phone Florencia BRIONES, Mandeep Primary Care Provider UnavailJolie Connell [phone] Encounters Encounter Location Date Provider Diagnosis [facility] [address] [place] [address] 09/06/2023 Jolie Downing Plan Of Treatment No Information Progress Notes * Maged LALB:2000 (24 yo F)Acc No.[id number]:09/06/2023 PROGRESS NOTES Patient: Ayde MONTOYA Provider: Yanira Downing DPM :2000 A ge:23 Y S ex:Female Date:09/06/2023 Address:[address] [place] [address] rodr[address] [id number] Pcp:Mandeep Don MD Subjective: * Chief Complaints: * * Medical History: Objective: * Vitals: Assessment: Plan: * Treatment: * Images: * The named appointment provid er may or may not be the originator of this progress note, and it is not deemed complete until electronically signed by the appointment provider. Sign off status: Pending * Provider: Yanira Downing DPM Date: 0 09/06/2023 Generated for Printi ng/Faxing/eTransmitting on: 1 04/14/2024 07:33 PM EST
--- OUTSIDE RECORDS SUMMARY | 2024-06-17 04:45 | XMS_ITS ---
Author Organization [facility] Address [address] [place] [address] Care Team Providers Care Washer Meat Name Role Phone Florencia BRIONES, Mandeep Primary Care Provider Unavailabl e Black, Jolie Unavailable [phone] Lily Keith Unavailable [phone] Encounters Encounter Location Date Provider Diagnosis [address] [address] 06/17/2024 Lily Keith Plan Of Treatment No Information Progress Notes * Sylvia LALAzamB:2000 (24 yo F)Acc No.[id number]:06/17/2024 Progress Notes Patient: Ayde MONTOYA Provider: Arielle Keith DPM :2000 A ge:23 Y S ex:Female Date:06/17/2024 Address:[address] [place], [place] [id number] Pcp:Mandeep Don MD Subjective: * Chief Complaints: * * Medical History: Objective: * Vitals: Assessment: Plan: * Treatment: * Images: * The named appointment provid er may or may not be the originator of this progress note, and it is not deemed complete until electronically signed by the appointment provider. Sign off status: Pending * Provider: Arielle Keith DPM Date: 0 06/17/2024 Generated for Anais thurston/Brandy/eTransmitting on: 04/14/2024 07:33 PM EST
--- OUTSIDE RECORDS SUMMARY | 2024-07-29 09:00 | XMS_ITS ---
Author Organization [facility] Address [address] [place] [address] Care Team Providers Care Material Control Manager Name Role Phone Florencia BRIONES, Mandeep Primary Care Provider Unavailabl e Black, Jolie Unavailable [phone] Lily Keith Unavailable [phone] Encounters Encounter Location Date Provider Diagnosis [address] [address] 07/29/2024 Lily Keith Plan Of Treatment No Information Progress Notes * Sylvia LALAzamB:2000 (24 yo F)Acc No.[id number]:07/29/2024 Progress Note Patient: Ayde MONTOYA Provider: Arielle Keith DPM :2000 A ge:24 Y S ex:Female Date:07/29/2024 Address:[address] [place], [place] [id number] Pcp:Mandeep Don MD Subjective: * Chief Complaints: * * Medical History: Objective: * Vitals: Assessment: Plan: * Treatment: * Images: * The named appointment provid er may or may not be the originator of this progress note, and it is not deemed complete until electronically signed by the appointment provider. Sign off status: Pending * Provider: Arielle Keith DPM Date: 0 07/29/2024 Generated for Anais thurston/Brandy/Dioneransmitting on: 04/14/2024 07:33 PM EST
[2025-02-11 16:18] LABS: MANUAL DIFF FLAG NO
[2025-02-11 16:25] LABS: Hematocrit 39.5 % (37.0-47.0); Hemoglobin 13.6 g/dl (12.0-16.0); Imm Gran Abs Auto 0.06 X10*3/uL (0.00-0.03); Imm Gran Pct Auto 0.5 % (0.0-0.4); Lymphocytes Absolute Auto 3.1 X10*3/uL (1.2-4.9); Mean Corpuscular HGB Conc 34.4 g/dl (31.0-35.0); Mean Corpuscular Hemoglobin 30.9 pg (27.0-33.0); Mean Corpuscular Volume 89.8 fL (80.0-98.0); NRBC Abs Auto 0.000 X10*3/uL (0.0-0.012); NRBC Pct Auto 0.0 /100WBC (0.0-0.2); Platelet Count 368 X10*3/uL (160-400); Red Blood Count 4.40 X10*6/uL (4.20-5.50); White Blood Count 13.0 X10*3/uL (4.8-10.8)
--- OUTSIDE RECORDS SUMMARY | 2025-02-11 19:33 | XMS_ITS | Patient Health Record ---
Author Organization [facility] Address [address] [facility] [place] [address] Care Team Providers Care Boiler Service Technician Name Role Phone Mandeep Don MD Primary Care Provider Unavailabl e Black, Jolie Unavailable [phone] Lily Keith Unavailable [phone] Allergies Allergen (clinical drug ingredient) Drug/Non Drug [...] HCl 50 MG (Schedule IV Drug) (Prior Auth#:[id number]) Oral; Duration: 7 PRN Active Breo Ellipta [...] skin (L97.521) Active confirmed Problem Plantar fasciitis (490787675) Plantar fasciitis (M72.2) Active confirmed Resistant to previous conservative treatment Problem Plantarflexion deformity of left foot (finding) (1911375083311373 ) 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) Active confirmed Problem 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) Plantar fasciitis, bilateral (M72.2) Active confirmed Vital Signs Blood pressure diastolic 98 mm Hg 05/15/2024 Height 4ft 10in in 05/15/2024 Blood pressure systolic 136 mm Hg 05/15/2024 Weight 153 lbs 05/15/2024 BMI 31.97 kg/m2 05/15/2024 Encounters Encounter Location Date Provider Diagnosis [facility] [address] 05/15/2024 Lily Perica Pain in right foot M79.671 ; Plantar fasciitis, bilateral M72.2 ; Other myositis of right foot M60.871 ; Bursitis of right foot M77.51 ; Pain in left foot M79.672 ; Other myositis of left foot M60.872 and Bursitis of left foot M77.52 [facility] [employer] [address] [place] [address] 05/12/2024 Jolie Downing Assessments Encounter Date Diagnosis [...] X ray : Foot, right 3V 05/15/2024 66892-Moim Destruction, 1-14 11/07/2021 39365-Sdfy Destruction, -14 01/23/2022 36456-Wojh Destruction, -14 04/01/2020 72504-Ttpg Destruction, -04/22/2020 86867-Mifp Destruction, -14 05/27/2020 17472-Gfkm Destruction, -14 06/21/2020 56551-Ghev Destruction, -03/21/2021 80019-Pusc Destruction, -04/28/2021 16403-Dsle Destruction, -05/30/2021 51950-Onxy Destruction, -10/10/2021 15535,S5917-LJM TENDON SHEATH/LIGAMENT 0 10/25/202180466,X0126-FJV TENDON SHEATH/LIGAMENT 0 11/07/202191782,T7928-MZE TENDON SHEATH/LIGAMENT 0 04/10/202269867,G6108-BMZ TENDON SHEATH/LIGAMENT 0 04/18/2022 Insurance Providers Payer Name Payer Address Payer Phone Subscriber Number Group Number Insured Name Patient Relationship to Insured Coverage Start Date Coverage End Date [facility] [address] [facility] [place], [place] [address] [id number] Ayde Broussard Self - patient is the insured Medical (General) History Medical History History ICD Code Anxiety asthma Depression Epilepsy Headaches Warts Chicken pox Joint implants/screws hydrocephalus Surgical History Surgery Date(Month/Year) shunt revision tubes hernia tonsillectomy adnoidectomy subdural 3rd ventriculostomy Hospitalization History Reason Date(Month/Year) Pain Management- PRN 2022
--- OUTSIDE RECORDS SUMMARY | 2025-02-11 19:33 | XMS_ITS | Encounter Summary ---
Author Organization [facility] Address [address] [place] [address] Phone Care Team Providers Care Linen Manager Name Role Phone Mandeep Don MD Primary Care Provider [phone] Addison Sofia Unavailable [phone] Mandeep Don MD Unavailable Encounter Details Date Type Department Care Team (Latest Contact Info) Description 06/27/2023 Abstract Nando Conversion Provider, MD Giana [address] [place] [address] Social History Tobacco Use Types Packs/Day [...] Procedure Visit [facility] [address] [place] [address] Aurelia Larsen, POLICE CAPTAIN [address] [place] [address] documented as of this encounter Visit Diagnoses Not on filedocumented in this encounter Care Teams Linen Manager Relationship Specialty Start Date End Date Mandeep Don MD [address] [place] [phone] PCP - General 06/22/23 Addison Sofia [address] [place], [place] [phone] PCP - Insurance PCP 10/11/22 Mandeep Don MD [address] [place], [place] [phone] PCP - Clinical PCP 02/17/19 documented as of this encounter
--- OUTSIDE RECORDS SUMMARY | 2025-02-11 19:33 | XMS_ITS | Clinical Summary ---
Author Organization [facility] Address [address] [place] [address] Care Team Providers Care Flame Burner Name Role Phone Mandeep Don MD Primary Care Provider [phone] Source Comments Please note that some or [...] so, obtain the minor's consent prior to disclosure.[facility] Allergies Active Allergy Reactions Criticality Noted [...] (04/12/2017): Added automatically from request for surgery [id number] Presence of programmable ventriculoperitoneal sh unt 05/17/2015 Overview (03/06/2018): R occipital shunt 2.0 on 11/28/2017 Chronic nonintractable headache, unspecified hea dache type Resolved Problems Problem Noted Date Diagnosed Date Resolved Date Shunt malfunction, initial encounter 11/18/2017 08/13/2019 Hydrocephalus 07/24/2017 08/13/2019 Obstructive hydrocephalus 07/18/2017 Overview (07/18/2017): Added automatically from request for surgery [id number] Family History Medical History Relation Name Comments [...] Description 10/14/2025 9:00 AM EDT Office Visit [facility] Department of Neurosurgery [address] [place] [address] Amish Hanna MD [address] [place] [address] Health Maintenance Due Date Last Done Comments DTaP/TDAP/TD VACCINES (1 - Tdap) 06/18/2006 ADOLESCENT HIV SCREENING 06/18/2012 COVID-19 Vaccine ( season) 2024 08/25/2021, 01/24/2021, 07/19/2020, Additional history exists INFLUENZA (#1) 2024 NIRSEVIMAB VACCINES UNDER 8 MONTHS Aged Out No longer eligible based on patient's age to complete this topic Medical Devices Implanted Type Area Physical Therapy Professor Device Identifier Shelf Expiration Date Model / Serial / Lot Ccmcvol- Leibinger 1.5 X 5mm Screw/[id number] - [id number] Implanted:Qty: 1 on 11/19/2017 by Virgilio Mcmanus MD at [facility] Screw [id number] / / Shunt Programable - Strata Regular/[id number] - [id number] Implanted:Qty: 1 on 11/19/2017 by Virgilio Mcmanus MD at [facility] Tube _Medtronic 03/28/2020 [id number] / / [id number] Orion Peritoneal Catheter/ 97071 - [id number] Implanted:Qty: 1 on 11/19/2017 by Virgilio Mcmanus MD at [facility] Tube _Medtronic 09/18/2018 54767 / / [id number] Codman Microsensor Skull [place] Kit/ [id number] - [id number] Implanted:Qty: 1 on 07/24/2017 by Cade Lindsey MD at [facility] 04/25/2022 [id number] / / [id number] Insurance [facility] HMO Care Teams Flame Burner Relationship Specialty Start Date End Date Mandeep Don MD [address] [place] [address] PCP - General 11/17/18
--- OUTSIDE RECORDS SUMMARY | 2025-02-11 19:34 | XMS_ITS | Clinical Summary ---
Author Organization [facility] Address [address] [place] [address] Phone Care Team Providers Care Manager Field Investigations Name Role Phone Mandeep Don MD Primary Care Provider [phone] Addison Sofia Unavailable [phone] Mandeep Don MD Unavailable Allergies Active [...] (01/01/2024): Added automatically from request for surgery [id number] Presence of programmable ventriculoperitoneal sh unt 05/17/2015 Overview (01/01/2024): R occipital shunt 2.0 on 11/28/2017 Chronic brain-hydrocephalus syndrome (CMS/HCC) 0 04/18/2015 Overview (06/27/2023): 11/05/2013 13:Juan Alberto - TAVO MOLINA MD Added by [facility] Generalized anxiety disorder 04/18/2015 Overview (06/27/2023): 11/05/2013 13:TAVO MANLEY MD Added by [facility] Headache 04/14/2014 History of headache 04/14/2014 Chronic tension type headache 11/05/2013 Overview (06/27/2023): 11/05/2013 13:TAVO MANLEY MD Added by [facility] Concussion without loss of consciousness 09/10/2 014 Overview (06/27/2023): 11/05/2013 13:TAVO MANLEY MD Added by [facility] Occipital neuralgia 11/05/2013 Overview (06/27/2023): 11/05/2013 13:TAOV MANLEY MD Added by [facility] Muscle tension pain 11/05/2013 Overview (06/27/2023): 11/05/2013 13:TAVO MANLEY MD Added by [facility] Obsessive compulsive disorder 07/02/2012 Resolved Problems Problem Noted Date Diagnosed Date Resolved Date Thoughts of self harm 03/23/20222023 Transition of care performed with sharing of clinical summary 08/13/2019 01/01/2024 Encounters Date Type Department Care Team Description 01/26/2025 Prior Authorization [facility] [address] [place] [address] Cindy Jang lidocaine 5% patch 01/21/2025 Telephone [facility] [address] [place] [address] Christie Pearce CNP 01/15/2025 Prior Authorization [facility] [address] [place] [address] Maria De Jesus Cesar 01/14/2025 Orders Only [facility] [address] [place] [address] Akilah Hernandez CNP Migraine without aura and without status migrainosus, not intractable 11/13/2024 Prior Authorization [facility] [address] [place] [address] Cindy Jang rescue dosing 11/12/2024 10:00 AM EDT Procedure Visit [facility] [address] [place] [address] Christie Pearce CNP Intractable chronic migraine without [...] Procedure Visit [facility] [address] [place] [address] Aurelia Larsen, FOLDER TIER [address] [place] [address] Health Maintenance Due Date Last Done Comments [...] 10 units divided amongst 2 site(s) Right power sweeper operator: 5 units divided amongst 1 site(s) Left power sweeper operator: 5 units divided amongst 1 site(s) Procerus [...] cervical paraspinal held due to placement of SEDIMENT REMEDIATION CONSULTANT shunt and shunt tubing Christie Pearce FOLDER TIER IN CLINIC/BEDSIDE OR DERABLES Final Result from Last 3 Months Insurance Care Teams Manager Field Investigations Relationship Specialty Start Date End Date Mandeep Don MD [address] [place] [phone] PCP - General 06/22/23 Addison Sofia [address] [place] [address] PCP - Insurance PCP 10/11/22 Mandeep Don MD [address] [place] [phone] PCP - Clinical PCP 02/17/19
--- OUTSIDE RECORDS SUMMARY | 2025-02-11 19:34 | XMS_ITS | Patient Health Record ---
Author Organization [facility] [address] Address [address] [place] [address] Care Team Providers Care Sieve Maker Name Role Phone ERICK MOONEY Unavailable [phone] CHANCE FRENCH Unavailable [phone] ZEB PUENTE Unavailable [phone] Allergies Allergen (clinical drug ingredient) Drug/Non Drug [...] Status W/U Status Risk Notes Problem Obesity (630240037) Other obesity (E66.8) Active confirmed Problem Abnormal blood pressure (29153315) Encounter for examination of blood pressure with abnormal findings (Z01.31) Active confirmed Problem Morbid obesity (885254382) Morbid obesity (E66.01) Active confirmed Problem Refractory migraine (034134076) Intractable migraine without status migrainosus, unspecified migraine type (G43.919) Active confirmed Problem Body mass index 40+ - morbidly obese (435625927) BMI 40.0-44.9, adult (Z68.41) Active confirmed Problem Obese class II (926181579439199) BMI 37.0-37.9, adult (Z68.37) Active confirmed Problem Obese class II (407914973675316) BMI 35.0-35.9,adult (Z68.35) Active confirmed Problem Obese class I (991889701900433) BMI 33.0-33.9,adult (Z68.33) Active confirmed Problem BMI 30+ - obesity (470301186) BMI 32.0-32.9,adult (Z68.32) Active confirmed Problem Obese class II (000230512785189) BMI 38.0-38.9,adult (Z68.38) Active confirmed Problem Body mass index 30.00 to 34.99 (242355944361344) BMI 31.0-31.9,adult (Z68.31) Active confirmed Problem Body mass index 30+ - obesity (705486247) BMI 30.0-30.9,adult (Z68.30) Active confirmed Problem Body mass index 30.00 to 34.99 (685211105197104) BMI 34.0-34.9,adult (Z68.34) Active confirmed Problem Obstructive hydrocephalus (938387543) Hydrocephalus, unspecified type (G91.9) Active confirmed Problem Obesity (974082607) Obesity (E66.9) Active confirmed Vital Signs Heart Rate 92 /min 01/06/2025 Oximetry 98 % 01/06/2025 Blood pressure diastolic 80 mm Hg 01/06/2025 Height 59 in 01/06/2025 Blood pressure systolic 116 mm Hg 01/06/2025 Weight 149.8 lbs 01/06/2025 BMI 30.25 kg/m2 01/06/2025 Encounters Encounter Location Date Provider Diagnosis [facility] [address] [place] [address] 03/20/2024 CHANCE MARSHA BMI 31.0-31.9,adult Z68.31 ; Obesity E66.9 ; Hydrocephalus, unspecified type G91.9 and Depression, unspecified F32.A [facility] [address] [place] [address] 05/05/2024 CHANCE FRENCH Obesity E66.9 ; BMI 31.0-31.9,adult Z68.31 ; Hydrocephalus, unspecified type G91.9 and Depression, unspecified F32.A [facility] [address] [place] [address] 06/24/2024 CHANCE FRENCH Obesity E66.9 ; BMI 31.0-31.9,adult Z68.31 ; Hydrocephalus, unspecified type G91.9 and Depression, unspecified F32.A [facility] [address] [place], [place] 08/05/2024 CHANCE MANOLO BMI 31.0-31.9,adult Z68.31 ; Obesity E66.9 ; Hydrocephalus, unspecified type G91.9 ; Depression, unspecified F32.A and Encounter for examination of blood pressure without abnormal findings Z01.[address] [facility] [address] [place], [place] 09/23/2024 CHANCE MANOLO Obesity E66.9 ; BMI 30.0-30.9,adult Z68.30 ; Hydrocephalus, unspecified type G91.9 ; Depression, unspecified F32.A and Encounter for examination of blood pressure with abnormal findings Z01.[address] [address] [place], [place] 11/25/2024 ZEB PUENTE BMI 30.0-30.9,adult Z68.30 ; Obesity E66.9 ; Hydrocephalus, unspecified type G91.9 ; Depression, unspecified F32.A and Encounter for examination of blood pressure with abnormal findings Z01.[address] [address] [place], [place] 01/06/2025 CHANCE MANOLO BMI 30.0-30.9,adult Z68.30 ; Obesity E66.9 ; Hydrocephalus, unspecified type G91.9 ; Depression, unspecified F32.A and Encounter for examination of blood pressure with abnormal findings Z01.31 [facility] [address] [place] [address] [place] [address] 02/21/2024 CHANCE MANOLO [facility] [address] [place] [place] [address] 02/25/2024 CHANCE MANOLO [facility] [address] [place] [place] [address] 04/22/2024 CHANCE MANOLO [facility] [address] [place] [address] 05/05/2024 CHANCE MANOLO [facility] [address] [place] [place] [address] 06/30/2024 CHANCE MANOLO [facility] [address] [place] [address] 08/25/2024 CHANCE FRENCH [facility] [address] [facility] [address] [place] [address] 11/25/2024 CHANCE FRENCH Morbid obesity E66.0 1 [facility] [address] [facility] [address] [place] [address] 11/27/2024 ZEB KWAME Assessments Encounter Date Diagnosis [...] Topamax increase by a neurologist. Patient joined [employer]. Will continue with lifestyle modifications. 04/24/22: weight [...] been able to focus on diet/exercise. Received [facility] today. Will focus on planning her foods [...] self. Recommended looking for a therapist on [employer]. Discused talking to PCP about changing or [...] with walk-in clinic for psychiatric needs in [place] to use as needed. She should call [...] bag of her disposable pen needles from [employer] to dispose in office today. #Hydrocephalus: Patient [...] Dictation was accomplished with the use of [employer] voice recognition software, prone to medical misidentifications [...] Topamax increase by a neurologist. Patient joined [employer]. Will continue with lifestyle modifications. 04/24/22: weight [...] self. Recommended looking for a therapist on [facility]. Discused talking to PCP about changing or [...] with walk-in clinic for psychiatric needs in [place] to use as needed. She should call [...] bag of her disposable pen needles from [facility] to dispose in office today. #Hydrocephalus: Patient [...] Dictation was accomplished with the use of [employer] voice recognition software, prone to medical misidentifications [...] Topamax increase by a neurologist. Patient joined [employer]. Will continue with lifestyle modifications. 04/24/22: weight [...] been able to focus on diet/exercise. Received [facility] today. Will focus on planning her foods [...] self. Recommended looking for a therapist on [employer]. Discused talking to PCP about changing or [...] with walk-in clinic for psychiatric needs in [place] to use as needed. She should call [...] bag of her disposable pen needles from [employer] to dispose in office today. #Hydrocephalus: Patient [...] Dictation was accomplished with the use of [employer] voice recognition software, prone to medical misidentifications [...] Topamax increase by a neurologist. Patient joined [employer]. Will continue with lifestyle modifications. 04/24/22: weight [...] been able to focus on diet/exercise. Received [facility] today. Will focus on planning her foods [...] self. Recommended looking for a therapist on [employer]. Discused talking to PCP about changing or [...] constipation. 08/05/24: BMI 31, Weight 154. Has [employer], switched back to [employer]. Currently on 1.7 [...] with walk-in clinic for psychiatric needs in [place] to use as needed. She should call [...] bag of her disposable pen needles from [facility] to dispose in office today. #Hydrocephalus: Patient [...] Dictation was accomplished with the use of [employer] voice recognition software, prone to medical misidentifications [...] Topamax increase by a neurologist. Patient joined [employer]. Will continue with lifestyle modifications. 04/24/22: weight [...] been able to focus on diet/exercise. Received [facility] today. Will focus on planning her foods [...] self. Recommended looking for a therapist on [facility]. Discused talking to PCP about changing or [...] 08/05/24: BMI 31, Weight 154. Has [employer], switched back to [employer]. Currently on [...] with walk-in clinic for psychiatric needs in [place] to use as needed. She should call [...] bag of her disposable pen needles from [employer] to dispose in office today. #Hydrocephalus: Patient [...] Dictation was accomplished with the use of [employer] voice recognition software, prone to medical misidentifications [...] Topamax increase by a neurologist. Patient joined [employer]. Will continue with lifestyle modifications. 04/24/22: weight [...] been able to focus on diet/exercise. Received [facility] today. Will focus on planning her foods [...] self. Recommended looking for a therapist on [employer]. Discused talking to PCP about changing or [...] constipation. 08/05/24: BMI 31, Weight 154. Has [employer], switched back to [employer]. Currently on 1.7 [...] with walk-in clinic for psychiatric needs in [place] to use as needed. She should call [...] Dictation was accomplished with the use of [employer] voice recognition software, prone to medical misidentifications [...] Topamax increase by a neurologist. Patient joined [employer]. Will continue with lifestyle modifications. 04/24/22: weight [...] self. Recommended looking for a therapist on [employer]. Discused talking to PCP about changing or [...] constipation. 08/05/24: BMI 31, Weight 154. Has [employer], switched back to [employer]. Currently on 1.7 [...] with walk-in clinic for psychiatric needs in [place] to use as needed. She should call [...] Dictation was accomplished with the use of [employer] voice recognition software, prone to medical misidentifications [...] Topamax increase by a neurologist. Patient joined [employer]. Will continue with lifestyle modifications. 04/24/22: weight [...] been able to focus on diet/exercise. Received [facility] today. Will focus on planning her foods [...] self. Recommended looking for a therapist on [employer]. Discused talking to PCP about changing or [...] 08/05/24: BMI 31, Weight 154. Has [employer] [facility], switched back to [employer]. Currently on 1.7 [...] with walk-in clinic for psychiatric needs in [place] to use as needed. She should call [...] Dictation was accomplished with the use of [employer] voice recognition software, prone to medical misidentifications [...] Topamax increase by a neurologist. Patient joined [employer]. Will continue with lifestyle modifications. 04/24/22: weight [...] been able to focus on diet/exercise. Received [facility] today. Will focus on planning her foods [...] self. Recommended looking for a therapist on [employer]. Discused talking to PCP about changing or [...] 08/05/24: BMI 31, Weight 154. Has [employer], switched back to [employer]. Currently on [...] with walk-in clinic for psychiatric needs in [place] to use as needed. She should call [...] Dictation was accomplished with the use of [employer] voice recognition software, prone to medical misidentifications [...] Topamax increase by a neurologist. Patient joined [employer]. Will continue with lifestyle modifications. 04/24/22: weight [...] self. Recommended looking for a therapist on [employer]. Discused talking to PCP about changing or [...] with walk-in clinic for psychiatric needs in [place] to use as needed. She should call [...] bag of her disposable pen needles from [facility] [employer] [facility] to dispose in office today. #Hydrocephalus: Patient [...] Dictation was accomplished with the use of [employer] voice recognition software, prone to medical misidentifications [...] Topamax increase by a neurologist. Patient joined [employer]. Will continue with lifestyle modifications. 04/24/22: weight [...] been able to focus on diet/exercise. Received [facility] today. Will focus on planning her foods [...] self. Recommended looking for a therapist on [employer]. Discused talking to PCP about changing or [...] with walk-in clinic for psychiatric needs in [place] to use as needed. She should call [...] bag of her disposable pen needles from [employer] to dispose in office today. #Hydrocephalus: Patient [...] Dictation was accomplished with the use of [employer] voice recognition software, prone to medical misidentifications [...] Topamax increase by a neurologist. Patient joined [employer]. Will continue with lifestyle modifications. 04/24/22: weight [...] self. Recommended looking for a therapist on [employer]. Discused talking to PCP about changing or [...] with walk-in clinic for psychiatric needs in [place] to use as needed. She should call [...] Dictation was accomplished with the use of [employer] voice recognition software, prone to medical misidentifications [...] Topamax increase by a neurologist. Patient joined [employer]. Will continue with lifestyle modifications. 04/24/22: weight [...] been able to focus on diet/exercise. Received [facility] today. Will focus on planning her foods [...] self. Recommended looking for a therapist on [employer]. Discused talking to PCP about changing or [...] constipation. 08/05/24: BMI 31, Weight 154. Has [employer], switched back to [employer]. Currently on 1.7 [...] with walk-in clinic for psychiatric needs in [place] to use as needed. She should call [...] Dictation was accomplished with the use of [employer] voice recognition software, prone to medical misidentifications [...] Topamax increase by a neurologist. Patient joined [employer]. Will continue with lifestyle modifications. 04/24/22: weight [...] been able to focus on diet/exercise. Received [facility] today. Will focus on planning her foods [...] self. Recommended looking for a therapist on [employer]. Discused talking to PCP about changing or [...] constipation. 08/05/24: BMI 31, Weight 154. Has [employer], switched back to [employer]. Currently on 1.7 [...] with walk-in clinic for psychiatric needs in [place] to use as needed. She should call [...] Dictation was accomplished with the use of [employer] voice recognition software, prone to medical misidentifications [...] Topamax increase by a neurologist. Patient joined [employer]. Will continue with lifestyle modifications. 04/24/22: weight [...] self. Recommended looking for a therapist on [employer]. Discused talking to PCP about changing or [...] with walk-in clinic for psychiatric needs in [place] to use as needed. She should call [...] Dictation was accomplished with the use of [employer] voice recognition software, prone to medical misidentifications [...] Topamax increase by a neurologist. Patient joined [employer]. Will continue with lifestyle modifications. 04/24/22: weight [...] self. Recommended looking for a therapist on [employer]. Discused talking to PCP about changing or [...] 08/05/24: BMI 31, Weight 154. Has [employer], switched back to [employer]. Currently on [...] with walk-in clinic for psychiatric needs in [place] to use as needed. She should call [...] bag of her disposable pen needles from [employer] to dispose in office today. #Hydrocephalus: Patient [...] Dictation was accomplished with the use of [employer] voice recognition software, prone to medical misidentifications [...] Topamax increase by a neurologist. Patient joined [employer]. Will continue with lifestyle modifications. 04/24/22: weight [...] self. Recommended looking for a therapist on [employer]. Discused talking to PCP about changing or [...] with walk-in clinic for psychiatric needs in [place] to use as needed. She should call [...] Dictation was accomplished with the use of [employer] voice recognition software, prone to medical misidentifications [...] Topamax increase by a neurologist. Patient joined [employer]. Will continue with lifestyle modifications. 04/24/22: weight [...] been able to focus on diet/exercise. Received [facility] today. Will focus on planning her foods [...] self. Recommended looking for a therapist on [employer]. Discused talking to PCP about changing or [...] with walk-in clinic for psychiatric needs in [place] to use as needed. She should call [...] Dictation was accomplished with the use of [employer] voice recognition software, prone to medical misidentifications [...] Topamax increase by a neurologist. Patient joined [employer]. Will continue with lifestyle modifications. 04/24/22: weight [...] been able to focus on diet/exercise. Received [facility] today. Will focus on planning her foods [...] self. Recommended looking for a therapist on [employer]. Discused talking to PCP about changing or [...] with walk-in clinic for psychiatric needs in [place] to use as needed. She should call [...] bag of her disposable pen needles from [employer] to dispose in office today. #Hydrocephalus: Patient [...] Dictation was accomplished with the use of [employer] voice recognition software, prone to medical misidentifications [...] Topamax increase by a neurologist. Patient joined [employer]. Will continue with lifestyle modifications. 04/24/22: weight [...] been able to focus on diet/exercise. Received [facility] today. Will focus on planning her foods [...] self. Recommended looking for a therapist on [employer]. Discused talking to PCP about changing or [...] with walk-in clinic for psychiatric needs in [place] to use as needed. She should call [...] Dictation was accomplished with the use of [employer] voice recognition software, prone to medical misidentifications [...] Topamax increase by a neurologist. Patient joined [employer]. Will continue with lifestyle modifications. 04/24/22: weight [...] self. Recommended looking for a therapist on [employer]. Discused talking to PCP about changing or [...] with walk-in clinic for psychiatric needs in [place] to use as needed. She should call [...] bag of her disposable pen needles from [employer] to dispose in office today. #Hydrocephalus: Patient [...] Dictation was accomplished with the use of [employer] voice recognition software, prone to medical misidentifications [...] Topamax increase by a neurologist. Patient joined [employer]. Will continue with lifestyle modifications. 04/24/22: weight [...] been able to focus on diet/exercise. Received [facility] today. Will focus on planning her foods [...] with walk-in clinic for psychiatric needs in [place] to use as needed. She should call [...] Dictation was accomplished with the use of [employer] voice recognition software, prone to medical misidentifications [...] Topamax increase by a neurologist. Patient joined [employer]. Will continue with lifestyle modifications. 04/24/22: weight [...] self. Recommended looking for a therapist on [employer]. Discused talking to PCP about changing or [...] with walk-in clinic for psychiatric needs in [place] to use as needed. She should call [...] Dictation was accomplished with the use of [employer] voice recognition software, prone to medical misidentifications [...] Topamax increase by a neurologist. Patient joined [employer]. Will continue with lifestyle modifications. 04/24/22: weight [...] self. Recommended looking for a therapist on [employer]. Discused talking to PCP about changing or [...] with walk-in clinic for psychiatric needs in [place] to use as needed. She should call [...] Dictation was accomplished with the use of [employer] voice recognition software, prone to medical misidentifications [...] Topamax increase by a neurologist. Patient joined [employer]. Will continue with lifestyle modifications. 04/24/22: weight [...] self. Recommended looking for a therapist on [employer]. Discused talking to PCP about changing or [...] constipation. 08/05/24: BMI 31, Weight 154. Has [employer], switched back to [employer]. Currently on 1.7 mg dose. Tolerating well, snacking more. 09/23/24: BMI 30, Weight 154 lb. Continue [employer] 2.4 mg . Needs to increase protein. #Patient has a history of hydrocephalus, she should continue following with neurology. She is on Topamax which will help with weight loss.Occipital nerve treatment through paid management on [address]. Topamax increase by neurologist, Patient tolerating well. [...] with walk-in clinic for psychiatric needs in [place] to use as needed. She should call [...] Dictation was accomplished with the use of [employer] voice recognition software, prone to medical misidentifications [...] Topamax increase by a neurologist. Patient joined [employer]. Will continue with lifestyle modifications. 04/24/22: weight [...] been able to focus on diet/exercise. Received [facility] today. Will focus on planning her foods [...] self. Recommended looking for a therapist on [employer]. Discused talking to PCP about changing or [...] with walk-in clinic for psychiatric needs in [place] to use as needed. She should call [...] Dictation was accomplished with the use of [employer] voice recognition software, prone to medical misidentifications [...] Topamax increase by a neurologist. Patient joined [employer]. Will continue with lifestyle modifications. 04/24/22: weight [...] been able to focus on diet/exercise. Received [facility] today. Will focus on planning her foods [...] self. Recommended looking for a therapist on [employer]. Discused talking to PCP about changing or [...] with walk-in clinic for psychiatric needs in [place] to use as needed. She should call [...] Dictation was accomplished with the use of [employer] voice recognition software, prone to medical misidentifications [...] Topamax increase by a neurologist. Patient joined [employer]. Will continue with lifestyle modifications. 04/24/22: weight [...] been able to focus on diet/exercise. Received [facility] today. Will focus on planning her foods [...] self. Recommended looking for a therapist on [employer]. Discused talking to PCP about changing or [...] constipation. 08/05/24: BMI 31, Weight 154. Has [employer], switched back to [employer]. Currently on 1.7 [...] with walk-in clinic for psychiatric needs in [place] to use as needed. She should call [...] Dictation was accomplished with the use of [employer] voice recognition software, prone to medical misidentifications [...] Topamax increase by a neurologist. Patient joined [employer]. Will continue with lifestyle modifications. 04/24/22: weight [...] been able to focus on diet/exercise. Received [facility] today. Will focus on planning her foods [...] self. Recommended looking for a therapist on [employer]. Discused talking to PCP about changing or [...] constipation. 08/05/24: BMI 31, Weight 154. Has [employer], switched back to [employer]. Currently on 1.7 [...] with walk-in clinic for psychiatric needs in [place] to use as needed. She should call [...] Dictation was accomplished with the use of [employer] voice recognition software, prone to medical misidentifications [...] Topamax increase by a neurologist. Patient joined [employer]. Will continue with lifestyle modifications. 04/24/22: weight [...] self. Recommended looking for a therapist on [employer]. Discused talking to PCP about changing or [...] constipation. 08/05/24: BMI 31, Weight 154. Has [employer], switched back to [employer]. Currently on 1.7 mg dose. Tolerating well, snacking more. 09/23/24: BMI 30, Weight 154 lb. Continue [employer] 2.4 mg . Needs to increase protein. #Patient has a history of hydrocephalus, she should continue following with neurology. She is on Topamax which will help with weight loss.Occipital nerve treatment through [facility] management on February 22. Topamax [...] with walk-in clinic for psychiatric needs in [place] to use as needed. She should call [...] Dictation was accomplished with the use of [employer] voice recognition software, prone to medical misidentifications [...] Topamax increase by a neurologist. Patient joined [employer]. Will continue with lifestyle modifications. 04/24/22: weight [...] been able to focus on diet/exercise. Received [facility] today. Will focus on planning her foods [...] self. Recommended looking for a therapist on Syncronex. Discused talking to PCP about changing or [...] 08/05/24: BMI 31, Weight 154. Has [employer], switched back to [employer]. Currently on 1.7 [...] with walk-in clinic for psychiatric needs in [place] to use as needed. She should call [...] bag of her disposable pen needles from [facility] to dispose in office today. #Hydrocephalus: Patient [...] Dictation was accomplished with the use of [employer] voice recognition software, prone to medical misidentifications [...] Topamax increase by a neurologist. Patient joined [employer]. Will continue with lifestyle modifications. 04/24/22: weight [...] self. Recommended looking for a therapist on Syncronex. Discused talking to PCP about changing or [...] 08/05/24: BMI 31, Weight 154. Has [employer], switched back to [employer]. Currently on 1.7 [...] with walk-in clinic for psychiatric needs in [place] to use as needed. She should call [...] Dictation was accomplished with the use of [employer] voice recognition software, prone to medical misidentifications and grammatical errors. This is unintentional and the practitioner does try to identify and correct these, but some could still be present. Please do not hesitate to contact practitioner for clarification. Plan Of Treatment Next Appt Details Provider Name:CHANCE FRENCH, 03/09/2025 02:45:00 PM, [address], [place], [address], Insurance Providers Payer Name Payer Address Payer Phone Subscriber Number Group Number Insured Name Patient Relationship to Insured Coverage Start Date Coverage End Date [facility] [address] [place] [id number] Ayde Broussard Self - patient is the insured Medications Administered Medication Instructions Date of Administration Dosage Notes MICC B12 INJECTION 12/28/2021 MICC B12 INJECTION 01/25/2022 1 mL Lot #: [id number] MICC B12 INJECTION 02/14/2022 Lot# [id number] MICC B12 INJECTION 02/28/2022 lot # [id number] MICC B12 INJECTION 03/27/2022 [id number] MICC B12 INJECTION 04/24/2022 [id number] MICC B12 INJECTION 2022 lot # [id number] MICC B12 INJECTION 07/03/2022 1 mL Lot # [id number] MICC B12 INJECTION 07/17/2022 lot # [id number] MICC B12 INJECTION 08/04/2022 lot # [id number] MICC B12 INJECTION 09/05/2022 lot # [id number] Semaglutide 11/28/2022 lot# [id number] Semaglutide 12/06/2022 0.25 mg Sema 0.25mg Semaglutide 12/13/2022 0.25 mg LOT# [id number] 0.25MG Semaglutide 12/20/2022 0.25 mg LRQ SQ Semaglutide 12/27/2022 0.25 mg Semaglutide 01/03/2023 0.5 mg Sema 0.5mg [id number] Semaglutide 01/09/2023 lot#[id number] 0.5mg Semaglutide 01/16/2023 0.5 mg LLQ SQ Semaglutide 01/23/2023 0.5 mg LLQ SQ Semaglutide 01/30/2023 1.0 mg LLQ SQ Semaglutide 02/06/2023 1mg Semaglutide 02/13/2023 1 mg Semaglutide 02/20/2023 1 mg Semaglutide 02/27/2023 1 mg Semaglutide 03/06/2023 1 Semaglutide 03/13/2023 1 mg Semaglutide 03/19/2023 1 mg lot# [id number] 1mg Semaglutide 03/26/2023 Semaglutide 04/02/2023 1 mg Semaglutide 04/09/2023 1 mg Semaglutide 04/17/2023 1 mg Medical (General) History Medical History History ICD Code Depression, unspecified F32.A Hydrocephalus, unspecified G91.9 Morbid obesity E66.01 Insomnia, unspecified G47.00 Surgical History Surgery Date(Month/Year) tonsillectomy adenotomy shunt revision
== END 2025-02-11 14:38 | disposition home or self-care (01) ==
LOC: HO.HMGCLDS 14:37
PROVIDERS: PCP Internal Medicine; Visit Provider Nurse Practitioner Family
DX: Z91.09 Other allergy status, other than to drugs and biological substances (principal)
CPT/HCPCS: 36415; 82785; 85025; 86003